=== PATIENT | female | born 1960 | race African-American/Black ===

== ENCOUNTER 2024-06-27 09:26 | Outpatient (CLI) | payer MEDICARE, MEDICAID, SELFPAY ==
--- NOTE | ~2024-06-27 | US_ITS ---
Renal-Bladder ultrasound Clinical History: Chronic kidney disease Technique: Real-time sonographic imaging of the kidneys and urinary bladder was performed. Findings: The right kidney measures 14.0 cm in length and the left kidney measures 15.1 cm. There is no hydronephrosis or renal calculus identified. Renal cortical echogenicity is within normal limits. Bilateral renal cysts are present. The urinary bladder is partially distended at the time of this exam. No intraluminal echoes are ident ified. No abnormal wall thickening is seen. Impression: Large kidneys without hydronephrosis. Bilateral renal cysts. Reviewed, dictated and finalized at location [facility] Impression: Large kidneys without hydronephrosis. Bilateral renal cysts.
== END 2024-06-27 09:27 | disposition home or self-care (01) ==
LOC: MICIMG 09:29
PROVIDERS: PCP Internal Medicine; Visit Provider Specialist
DX: N18.31 Chronic kidney disease, stage 3a (principal); N28.1 Cyst of kidney, acquired
CPT/HCPCS: 76770

== ENCOUNTER 2024-08-22 09:45 | Outpatient (CLI) | payer MEDICARE, MEDICAID, SELFPAY ==
--- NOTE | ~2024-08-22 | CT_ITS ---
CT of the Abdomen and Pelvis: Indication: Renal mass Technique: 2.5 mm axial scans were obtained through the abdomen and pelvis prior to and following in travenous administration of 100 cc of Omnipaque 350. Dose reduction technique was used on this scan b y utilizing automated exposure control and iterative reconstruction technique. The dose-length produc t (DLP) was 1378.31 mGy-cm. Findings: Scans through the lung bases are unremarkable. Bilateral benign/simple renal cysts are present. No solid, enhancing renal mass or other suspicious r enal mass identified in either side. No hydronephrosis. No renal stone seen on precontrast images. The liver, spleen, pancreas, and adrenal glands are within normal limits. Gallbladder absent. There a re atherosclerotic calcifications of the aorta. No lymphadenopathy. No bowel obstruction or bowel wall thickening. There is no evidence to suggest acute appendicitis. Images through the pelvis were performed. Urinary bladder unremarkable. No pelvic mass seen. No ascit es. Impression: Bilateral simple/benign renal cysts. No suspicious renal lesion. Reviewed, dictated and finalized at location . TIONAL TECHNICAL EDUCATION TEACHER Impression: Bilateral simple/benign renal cysts. No suspicious renal lesion.
[2024-08-22 10:15] LABS: Estimated Glomerular Filt Rate > 60
--- OUTSIDE RECORDS SUMMARY | 2024-08-22 10:31 | XMS_ITS ---
Author Organization [facility] Office Address [address] [place] [address] Care Team Providers Care Processing Analyst Name Role Phone Voss Daniel Unavailable [phone] PROBLEMS Problem Type ICD Code Onset Dates Problem Status W/U Status Risk SNOMED Code Notes Problem Renal osteodystrophy (N25.0) Active confirmed Renal osteodyst rophy (35430613) Problem Secondary hyperparathyroidism of renal origin (N25.81) Active confirmed Secondary hyperparathyroidism of renal origin (30125942) Encounters Encounter Location Date Provider Diagnosis [place] [facility] [address] [facility] [address] [place] [address] 08/12/2024 Daniel Voss Chronic kidney disea se, stage 2 (mild) N18.2 ; Essential hypertension I10 ; Cyst of kidney, acquired N28.1 ; Renal osteodystrophy N25.0 ; Secondary hyperparathyroidism of renal origin N25.81 and Proteinuria, unspecified R80.9 ASSESSMENTS Encounter Date Diagnosis Assessment Notes Treatment Notes Treatment Clinical Notes Section Notes 08/12/2024 Chronic kidney disea se, stage 2 (mild) (ICD-10 - N18.2) 08/12/2024 Essential hypertensi on (ICD-10 - I10) 08/12/2024 Cyst of kidney, acquired (ICD-10 - N28.1) 08/12/2024 Renal osteodystrophy (ICD-10 - N25.0) 08/12/2024 Secondary hyperparathyroidism of renal origin (ICD-10 - N25.81) 08/12/2024 Proteinuria, unspecified (ICD-10 - R80.9) PLAN OF TREATMENT Next Appt Details Provider Name:Daniel Voss , 09/16/2024 12:45:00 PM, [address] [facility], [address], [place], [address], Progress Notes * ANTONIO LALAOB:1960 ( 63 yo Other)Acc No.[id number]:08/12/2024 Progress Notes Patient:??BRADLY LALA Provider:??MD GATO, Iram.Pranav.C.P, F.A.S .N. :1960?Age:63 Y?Sex:Un known Date:08/12/2024 Address:[address] [place], [place] [address] [address] Subjective: * Chief Complaints: * ? * Medical History:?? Objective: Assessment: * Assessment: 1.??Chronic kidney disease, stage 2 (mild) - N18.2 (Primary)??2.??Essential hypertension - I10??3.??Cyst of kidney, acquired - N28.1??4.??Renal osteodystrophy - N25.0??5.??Secondary hyperparathyroidism of renal origin - N25.81??6.??Proteinuria, unspecified - R80.9?? Plan: * Treatment: * Billing Information: * Visit Code:?? 28262 Office Visit, Est Pt., Level 4. * Procedure Codes:?? * SCAPE CONTRACTOR Sign off status: Pending * Provider:??MD GATO, Iram.Pranav.Steven.P, F.A.S .N. Date:??08/12/2024
--- OUTSIDE RECORDS SUMMARY | 2024-08-22 10:31 | XMS_ITS ---
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 PROBLEMS Problem Type ICD Code Onset Dates Problem Status W/U Status Risk SNOMED Code Notes Problem Chronic kidney disease, stage 1 (N18.1) Active confirmed Chronic kidney disease stage 1 (572591659) Problem Type 2 diabetes mellitus without complications (E11.9) Active confirmed Type II diabetes mellitus without complication (744627935) Problem Essential hypertension (I10) Active confirmed Essential hypertension (42662202) Problem Cyst of kidney, acquired (N28.1) Active confirmed Acquired re nal cystic disease (120345081) Encounters Encounter Location Date Provider Diagnosis [facility] [address] [facility] [address] [place] [address] 06/10/2024 Daniel Voss Chronic kidney disease, stage 1 N18.1 ; Type 2 diabetes mellitus without complications E11.9 ; Essential hypertension I10 and Cyst of kidney, acquired N28.1 ASSESSMENTS Encounter Date Diagnosis Assessment Notes Treatment Notes Treatment Clinical Notes Section Notes 06/10/2024 Chronic kidney disease, stage 1 (ICD-10 - N18.1) 06/10/2024 Type 2 diabetes mellitus without complications (ICD-10 - E11.9) 06/10/2024 Essential hypertension (ICD-10 - I10) 06/10/2024 Cyst of kidney, acquired (ICD-10 - N28.1) PLAN OF TREATMENT Next Appt Details Provider Name:Daniel Voss , 09/16/2024 12:45:00 PM, [address] [facility], [facility] [address], [place], [address], Progress Notes * ANTONIO LALAOB:1960 ( 63 yo Other)Acc No.[id number]:06/10/2024 Progress Notes Patient:??BRADLY LALA Provider:??MD GATO, F.A.C.P, F.A.S .N. :1960?Age:63 Y?Sex:Un known Date:06/10/2024 Address:[address] [place], [place] [address] [address] Subjective: * Chief Complaints: * ?1. HOOK UP- ER VISIT AT [facility]- PT WAS TOLD TO MAKE A APPT WITH DOC- PLEASE GET INFO FROM TO MAKE A CHART- C.S.. * Medical History:?? Objective: Assessment: * Assessment: 1.??Chronic kidney disease, stage 1 - N18.1 (Primary)??2.??Type 2 diabetes mellitus without complications - E11.9??3.??Essential hypertension - I10??4.??Cyst of kidney, acquired - N28.1?? Plan: * Treatment: * Billing Information: * Visit Code:?? 86859 Office Visit, New Pt., Level 5. * Procedure Codes:?? * TEGIC PARTNERSHIP SPECIALIST Sign off status: Pending * Provider:??MD GATO, F.Pranav.C.P, F.A.S .N. Date:??06/10/2024
--- OUTSIDE RECORDS SUMMARY | 2024-08-22 10:31 | XMS_ITS | Data Portability ---
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 At her request under sterile conditions I injected both knee joints in the office today with 4 cc 0.5% bupivacaine and 20 mg of Kenalog each. The patient tolerated the procedures well. I will see her back as needed we can do this again in 3 months if necessary. She has had previous gel shots she states these did not work well for her so she would rather stick with the cortisone. She can take ibuprofen 800 mg t.i.d. with food I have advised her to have her kidney function checked every 6-12 months she sees her primary care doctor for care of her type 2 diabetes. She voiced understanding agrees above plan she will call for any further problems difficulties or questions. Not available 04/12/2024 09:18:18 07/12/2024 07/12/2024 The patient has moderately severe primary osteoarthritis both knee joints. At her request under sterile conditions I injected both knee joints in the office today with 4 cc 0.5% bupivacaine and 20 mg of triamcinolone each. The patient tolerated the procedures well. I will see her back as needed we can do this again in 3 months if necessary. The patient voiced understanding and agree with the above plan she will call for any further problems difficulties or questions. Not available 07/12/2024 09:32:40 Plan of Treatment Reminders Order Date Submit Date Provider Last Modified By Organization Details Last Modified Time Details Appointments Any 5 2024 08:00A POOJA Medrano Not available Not available Not available Lab None recorded. Referral None recorded. Procedures injection /aspirati on joint/bur sa (PROC) 2023 024 In-Office Order, Internal Use Only DO Not Attach Compendium DO Not Attach Compendium, Do Not Delete/merge, [id number] 04/12/2024 09:01:00 injection /aspirati on joint/bur sa (PROC) 2023 024 In-Office Order, Internal Use Only DO Not Attach Compendium DO Not Attach Compendium, Do Not Delete/merge, [id number] 07/12/2024 09:15:16 Surgeries endoscopy , nasal/sin us, w/ maxillary antrostom y & tissue removal (SURG) 2023 024 Not available 05/06/2024 11:17:35 Imaging XR, knee 2023 024 [email or web address] [email or web address], [address] [facility] [place], [address], 04/12/2024 10:35:36 Medication Orders bupivacai ne HCl 0.5 % (5 mg/mL) injection solution 2023 024 [facility] #[id number], [address], [place], [place], [id number], 07/12/2024 09:10:04 Kenalog 10 mg/mL suspensio n for injection 2023 024 [facility] #[id number], [address] [facility], [place], [place], [id number], 07/12/2024 09:10:17 cefdinir 300 mg capsule 2023 024 [id number], [address], [place], [place], [id number], 05/05/2024 15:35:54 prednison e 20 mg tablet 2023 024 [facility] #[id number], [address], [place], [place], [id number], 05/05/2024 15:36:04 bupivacai ne HCl 0.5 % (5 mg/mL) injection solution 2023 024 Not available 07/12/2024 13:22:55 triamcino lone acetonide 40 mg/mL suspensio n for injection 2023 024 Not available 07/12/2024 13:22:55 Patient TargetsNo targets recorded. Patient Instructions Encounter Date Encounter Id Patient Instructions Last Modified By Organization Details Last Modified Time 04/14/2024 [id number] ADVISED HER TO QUIT TAKING HER PREVIOUSLY PRESCRIBED BACTRIM AND BEGIN TAKING CEFDINIR PRESCRIBED. WE WILL OBTAIN A CT OF HER SINUSES. [email or web address] Not available 04/14/2024 09:37:11 05/23/2024 [id number] Continue use of saline rinses as needed. Follow-up with the office as needed. [email or web address] Not available 05/23/2024 10:32:30 Reason for Referral None Reported. Results Created Date Observation Date Name Description Value Unit Range Abnormal Flag Note LastModifiedBy Organization Detail LastModifiedTime 05/11/2005/11/2024 POTAS SIUM potassium 3.6 mmol/ L 3.5-5. 1 Not Available [facility] (Lab) [address] [place], [address], 05/11/2024 12:55:09 05/11/2005/11/2024 HEMOG LOBIN /AVERY TOCRI T hemoglobin 14.2 g/dL 12.0-1 5.6 Not Available [facility] (Lab) [address] [place], [address], 05/11/2024 13:00:54 05/11/20 24 05/11/2024 HEMOG LOBIN /AVERY TOCRI T hematocrit 45.3 % 35.7-4 5.7 Not Available [facility] (Lab) [address] [place], [address], 05/11/2024 13:00:54 05/11/20 24 05/11/2024 PLATE LET COUNT platelets 346 x10'3 /uL 150-40 0 Not Available [facility] (Lab) [address] [place], [address], 05/11/2024 13:00:58 05/11/2005/11/2024 GLUCO SE (POIN T OF CARE) glucose (point of care) 87 mg/dL 74-99 Not Available [facility] (Lab) [address] [place], [address], 05/11/2024 13:30:24 04/12/20 XR, knee No observ ation record ed. [email or web address] [email or web address] [facility] [address] [facility] [place], [address], 04/12/2024 09:17:13 04/19/20 24 04/19/2024 CT, sinus es, w/o contr ast No observ ation record ed. [facility] ([facility]) [address] [place], [address], 04/20/2024 09:46:41 04/22/20 24 04/22/2024 CT, maxil lofac ial, w/o contr ast No observ ation record ed. Not Available 2023 09:01:42 Result Notes None recorded. Problems Name Problem SNOMED Code Status Onset Date Resolution Date Notes Provider Name and Address Organization Details Recorded Time Contusion of right foot 2247648003692 9103 Active 2021 Not Available [facility] 03/01/202 3 02:50:45 Disorder of trunk 435305915 Active Not Available [facility] 3 02:50:45 Plantar fascial fibromatos is 86815142 Active Not Available [facility] 3 02:50:45 Heartburn 78909957 Active Not Available [facility] 3 02:50:45 Chronic diarrhea 041258765 Active Not Available [facility] 3 02:50:45 Gastroesop hageal reflux disease without esophagiti s 761867493 Active 2021 Not Available [facility] 3 02:50:45 Low back pain 965229252 Active Not Available [facility] 3 02:50:45 Cyst of skin 139087390 Active Not Available [facility] 3 02:50:45 Right upper quadrant pain 565850745 Active 2021 Not Available [facility] 3 02:50:46 Current tear of lateral cartilage AND/OR meniscus of knee Active Not Available [facility] 3 02:50:46 Pain in right foot 2200233821488 07 Active 2021 Not Available [facility] 3 02:50:46 Lesion of ulnar nerve 810245842 Active Not Available [facility] 3 02:50:46 Osteoarthr itis 431464475 Active Not Available [facility] 3 02:50:46 Obesity 420397643 Active Not Available [facility] 3 02:50:46 Anxiety 49980139 Active Not Available [facility] 3 02:50:46 Carpal tunnel syndrome 00567185 Active Not Available [facility] 3 02:50:46 Essential hypertensi on 48096764 Active Not Available [facility] 3 02:50:46 Bilateral osteoarthr itis of knees 3386922839517 07 Active 2022 NEREIDA Chang, [place] [facility] 3 09:00:41 Osteoarthr itis of right knee joint 2447832135832 00 Active 2022 NEREIDA Chang, [facility] 3 09:02:57 Pain of bilateral knee joints 5556470378076 04 Active 2023 NEREIDA Sue null, [facility] 4 09:14:49 Chronic sinusitis 67870946 Active 2023 Tali Marques RN null, [facility] 4 09:29:28 Chronic left maxillary sinusitis 5539676536070 9101 Active 2023 Bib Mondragon MD [address], [place], [address] , [facility] 4 16:01:52 Postoperat carrie pain 452664657 Active 2023 Bib Mondragon MD [address], [address], [place], [address] , [facility] 4 17:24:24 Problem Notes None recorded. Procedures Surgical History Date Name Laterality Status Provider Name and Address Organization Details Recorded Time 024 ENDOSCOPY, NASAL/SINUS, W/ MAXILLARY ANTROSTOMY & TISSUE REMOVAL (SURG) completed Tali Marques RN [facility] 05/20/2024 14:51:00 024 Ortho - Cortisone Injection completed Ralph Lind MD [address], [address], [place], [address], [facility] 01/11/2024 10:05:37 017 colonoscopy completed Not Available [facility] 09/24/2022 02:44:34 017 Endoscopy completed Not Available [facility] 09/24/2022 02:44:34 008 Sinus Surgery completed Tali Marques RN [facility] 04/14/2024 09:20:40 excision completed Not Available [facility] 09/24/2022 02:44:34 Hysterectomy completed Not Available [facility] 09/24/2022 02:44:34 Gastrointestinal Procedure completed Not Available [facility] 09/24/2022 02:44:34 ligation of bilateral fallopian tubes completed Not Available [facility] 09/24/2022 02:44:34 Imaging Results Imaging Date Name Status LastModified by Organiz ation Details LastModified Time 04/12/2024 XR, knee completed [email or web address] [address], [place], [address], 04/12/2024 09:17:13 04/19/2024 CT, sinuses, w/o contrast completed [facility] ([facility]) [address], [place], [address], 04/20/2024 09:46:41 04/22/2024 CT, maxillofacial , w/o contrast completed Information not available 05/05/2024 09:01:42 Procedure Notes None recorded. Medical Equipment None Reported. Allergies No known drug allergies Medications Name Sig Start Date Stop Date Status Note LastModified by Organization Details LastModified Time multivitami n tablet TK 1 T PO D 10/03 completed Not Available Not Available Not Available cyclobenzap rine 10 mg tablet TAKE 1 TABLET BY MOUTH AT BEDTIME. MAY CAUSE DROWSINES S active Not Available Not Available No t Available amoxicillin 500 mg capsule TK 1 C PO Q 8 H AFTER MEALS FOR 10 DAYS 09/13 completed Not Available Not Available Not Available hydrocodone 7.5 mg-ibuprofe n 200 mg tablet TAKE 1 TABLET BY MOUTH EVERY 6 HOURS NEEDED FOR PAIN CONTROL . MAX 5 TABLETS PER DAY active Not Available Not Available No t Available Qvar 80 mcg/actuati on Metered Aerosol oral inhaler 05/23 completed Not Available Not Available Not Available bupropion HCl SR 150 mg tablet,12 hr sustained-r elease TK 1 T PO BID active Not Available Not Available No t Available neomycin-po lymyxin-hyd rocort 3.5 mg/mL-10,00 0 unit/mL-1 % ear solution INSTILL 4 GTS INTO AFFECTED EAR TID UTD 04/05 completed Not Available Not Available Not Available diclofenac 3 % topical gel APPLY TOPICALLY TO LESIONS TWICE DAILY. SEE PACKAGE INSERTS 07/24 completed Not Available Not Available Not Available nystatin 100,000 unit/mL oral suspension SWISH AND SWALLOW 5 ML PO QID 04/05 completed Not Available Not Available Not Available atorvastati n 20 mg tablet TAKE 1 TABLET BY MOUTH EVERY DAY AT BEDTIME active Not Available Not Available No t Available nicotine 14 mg/24 hr daily transdermal patch APPLY 1 PATCH TO SKIN Q 24 H AFTER FINISHING THE 21 MG PATCHES active Not Available Not Available No t Available azithromyci n 250 mg tablet TAKE 2 TABLETS BY MOUTH FOR 1 DAY THEN TAKE 1 TABLET BY MOUTH DAILY FOR 4 DAYS 04/03 completed Not Available Not Available Not Available ibuprofen 800 mg tablet TAKE 1 TABLET BY MOUTH THREE TIMES DAILY WITH MEALS 07/12 completed Not Available Not Available Not Available fluconazole 150 mg tablet TK 1 T PO QD FOR 1 DAY UTD 05/23 completed Not Available Not Available Not Available doxepin 25 mg capsule TK 1 C PO QD HS 07/24 completed Not Available Not Available Not Available clarithromy cristian 500 mg tablet Take 1 tablet twice a day by oral route for 14 days. 01/15 completed Not Available Not Available Not Available hydrocodone 5 mg-acetamin ophen 325 mg tablet TK 1 T PO Q 4 H PRN P 04/05 completed Not Available Not Available Not Available meloxicam 15 mg tablet TK 1 T PO QD 05/23 completed Not Available Not Available Not Available naltrexone 50 mg tablet TAKE 1/2 TABLET BY MOUTH TWICE DAILY DIRECTED active Not Available Not Available No t Available lisinopril 20 mg tablet TK 1 T PO QD FOR BLOOD PRESSURE 05/23 completed Not Available Not Available Not Available famotidine 40 mg tablet 05/23 completed Not Available Not Available Not Available bupivacaine HCl 0.5 % (5 mg/mL) injection solution Take 40 mg by injection route. 2023 active Not Available Not Available Not Avai lable prednisone 20 mg tablet TAKE 1 TABLET BY MOUTH DAILY FOR 5 DAYS 05/05 completed Not Available Not Available Not Available clobetasol 0.05 % topical cream active Not Available Not Available Not Available diphenoxyla te-atropine 2.5 mg-0.025 mg tablet TK 1 T PO Q 6 H PRN 05/23 completed Not Available Not Available Not Available potassium chloride ER 10 mEq tablet,exte nded release TAKE 1 TABLET BY MOUTH EVERY DAY AFTER A MEAL active Not Available Not Available No t Available Klor-Con 20 mEq oral packet DISSOLVE 1 PACKET IN LIQUID AND DRINK BY MOUTH EVERY DAY AFTER A MEAL 10/23 completed Not Available Not Available Not Available acetaminoph en 300 mg-codeine 30 mg tablet TK 1 T PO Q 4-6 H PRN 09/13 completed Not Available Not Available Not Available amlodipine 5 mg tablet TAKE 1 TABLET BY MOUTH EVERY DAY DIRECTED active Not Available Not Available No t Available ciprofloxac in 500 mg tablet 09/13 completed Not Available Not Available Not Available sulfamethox azole 800 mg-trimetho prim 160 mg tablet TK 1 T PO Q 12 H FOR 10 DAYS active Not Available Not Available No t Available amitriptyli ne 50 mg tablet Take 1 tablet every day by oral route. 01/10 completed Not Available Not Available Not Available triamcinolo ne acetonide 0.1 % topical cream 07/05 completed Not Available Not Available Not Available amoxicillin 500 mg tablet Take 2 tablets twice a day by oral route for 14 days. active Not Available Not Available No t Available ketorolac 10 mg tablet TK 1 T PO Q 6 H PRN FOR 5 DAYS 05/23 completed Not Available Not Available Not Available meloxicam 7.5 mg tablet TK 1 T PO QD AFTER MEALS 04/05 completed Not Available Not Available Not Available oxycodone-a cetaminophe n 5 mg-325 mg tablet 04/05 completed Not Available Not Available Not Available amoxicillin 875 mg tablet TAKE 1 TABLET BY MOUTH EVERY 12 HOURS FOR 10 DAYS 04/14 completed Not Available Not Available Not Available amitriptyli ne 25 mg tablet TK 1 T PO HS 05/23 completed Not Available Not Available Not Available estradiol 1 mg tablet TAKE 1 TABLET BY MOUTH EVERY DAY 05/23 completed Not Available Not Available Not Available dicyclomine 20 mg tablet TK 1 T PO BID UTD active Not Available Not Available No t Available Kenalog 10 mg/mL suspension for injection Take 40 mg by injection route. 07/12 completed [facility]: [phone] Not Available Not Available Not Available amlodipine 10 mg tablet TK ONE T PO D active Not Available Not Available No t Available triamcinolo ne acetonide 40 mg/mL suspension for injection Take 40 mg by injection route. 2023 active Not Available Not Available Not Avai lable hydrocodone 7.5 mg-acetamin ophen 325 mg tablet Take 1 tablet every 4-6 hours by oral route. 05/20 completed Not Available Not Available Not Available cephalexin 500 mg capsule active Not Available Not Available Not Available pantoprazol e 40 mg tablet,avi yed release Take 1 tablet twice a day by oral route for 14 days. 04/16 completed Not Available Not Available Not Available triamcinolo ne acetonide 0.1 % topical ointment APPLY BID. active Not Available Not Available No t Available nicotine 21 mg/24 hr daily transdermal patch MARCELL 1 PA EXT TO THE SKIN QD UTD active Not Available Not Available No t Available Xylocaine 20 mg/mL (2 %) injection solution In office injection administe red by the provider 04/16 completed Not Available Not Available Not Available omeprazole 20 mg capsule,del ayed release TAKE 1 CAPSULE BY MOUTH DAILY WITH MEALS active Not Available Not Available No t Available Banophen 25 mg capsule TK 1 C PO Q 6 H PRN 05/23 completed Not Available Not Available Not Available diclofenac sodium 75 mg tablet,avi yed release TK 1 T PO BID WITH FOOD 05/23 completed Not Available Not Available Not Available montelukast 10 mg tablet TAKE 1 TABLET BY MOUTH EVERY DAY DIRECTED active Not Available Not Available No t Available hydroxyzine HCl 25 mg tablet 04/05 completed Not Available Not Available Not Available hydrochloro thiazide 25 mg tablet TAKE 1 TABLET BY MOUTH DAILY active Not Available Not Available No t Available ergocalcife rol (vitamin D2) 1,250 mcg (50,000 unit) capsule TAKE 1 CAPSULE BY MOUTH EVERY WEEK active Not Available Not Available No t Available ibuprofen 600 mg tablet TAKE 1 TABLET BY MOUTH THREE TIMES DAILY NEEDED 04/16 completed Not Available Not Available Not Available levofloxaci n 500 mg tablet active Not Available Not Available Not Available methylpredn isolone 4 mg tablets in a dose pack TAKE DIRECTED AFTER MEALS FOR 6 DAYS 04/03 completed Not Available Not Available Not Available albuterol sulfate HFA 90 mcg/actuati on aerosol inhaler INHALE 2 PUFFS BY MOUTH EVERY 4 HOURS NEEDED DIRECTED FOR RESCUE 01/04 completed Not Available Not Available Not Available ondansetron 4 mg disintegrat ing tablet 04/05 completed Not Available Not Available Not Available cefdinir 300 mg capsule TAKE 1 CAPSULE BY MOUTH EVERY 12 HOURS FOR 10 DAYS 05/05 completed Not Available Not Available Not Available fluoxetine 20 mg capsule TK 3 CS PO QD active Not Available Not Available No t Available fluticasone propionate 50 mcg/actuati on nasal spray,suspe nsion SHAKE WELL AND USE 1 SPRAY IN EACH NOSTRIL DAILY NEEDED active Not Available Not Available No t Available calcitriol 0.25 mcg capsule TAKE 1 CAPSULE BY MOUTH EVERY DAY active Not Available Not Available No t Available naproxen 500 mg tablet TAKE 1 TABLET BY MOUTH TWICE DAILY active Not Available Not Available No t Available amoxicillin 875 mg-potassiu m clavulanate 125 mg tablet TK 1 T PO Q 12 H FOR 7 DAYS UTD active Not Available Not Available No t Available amoxicillin 500 mg-potassiu m clavulanate 125 mg tablet 09/01 completed Not Available Not Available Not Available nicotine 7 mg/24 hr daily transdermal patch APPLY 1 PATCH TO SKIN QD UTD FOR 28 DAYS active Not Available Not Available No t Available buspirone 15 mg tablet TK 1 T PO TID active Not Available Not Available No t Available oxycodone 5 mg tablet TAKE 1 TABLET BY MOUTH EVERY 4 HOURS NEEDED FOR PAIN 04/09 completed Not Available Not Available Not Available hydroxyzine pamoate 25 mg capsule TK 1 C PO QID PRN active Not Available Not Available No t Available metformin ER 750 mg tablet,exte nded release 24 hr TAKE 1 TABLET BY MOUTH DAILY AFTER A MEAL 07/12 completed Not Available Not Available Not Available Alcohol Prep Pads APPLY 1 PAD TOPICALLY THREE TIMES DAILY DIRECTED 01/10 completed Not Available Not Available Not Available Atrovent HFA 17 mcg/actuati on aerosol inhaler INL 1 PUFF PO QID PRN 10/03 completed Not Available Not Available Not Available lidocaine (PF) 10 mg/mL (1 %) injection solution In office injection administe red by the provider 10/23 completed [facility]: [phone]- [phone] Not Available Not Available Not Available BD Ultra-Fine Short Pen Needle 31 gauge x 5/16 DIRECTED EVERY DAY active Not Available Not Available No t Available Januvia 50 mg tablet TAKE 1 TABLET BY MOUTH EVERY DAY DIRECTED active Not Available Not Available No t Available calcium 600 mg (as carbonate)- vitamin D3 10 mcg (400 unit) tablet TAKE 1 TABLET BY MOUTH TWICE DAILY 01/04 completed Not Available Not Available Not Available Symbicort 160 mcg-4.5 mcg/actuati on HFA aerosol inhaler INHALE 2 PUFFS BY MOUTH TWICE DAILY DIRECTED 04/14 completed Not Available Not Available Not Available Lantus Solostar U-100 Insulin 100 unit/mL (3 mL) subcutaneou s pen ADMINISTE R 25 UNITS UNDER THE SKIN EVERY DAY DIRECTED active Not Available Not Available No t Available diclofenac 1 % topical gel APPLY 2 GRAMS TOPICALLY TO THE AFFECTED AREA FOUR TIMES DAILY 07/18 completed Not Available Not Available Not Available Synvisc-One 48 mg/6 mL intra-artic ular syringe in office 07/12 completed Not Available Not Available Not Available Probiotic 04/16 completed Not Available Not Available Not Available ropivacaine (PF) 5 mg/mL (0.5 %) injection solution Take 8 mg by injection route. 07/12 completed [facility] [phone] Not Available Not Available Not Available OneTouch Verio test strips TEST BLOOD SUGAR TWICE DAILY DIRECTED active Not Available Not Available No t Available calcium 600 mg (as carbonate)- vitamin D3 20 mcg (800 unit) tablet TK 1 T PO BID 05/23 completed Not Available Not Available Not Available BD Insulin Syringe Ultra-Fine 1 mL 31 gauge x 5/16 USE DIRECTED ONCE DAILY 01/04 completed Not Available Not Available Not Available Pennsaid 20 mg/gram/act uation (2 %) topical soln in metered-dos e pump apply two pumps (40 MG) TO THE affected knee(s) topically TWICE DAILY 07/24 completed Not Available Not Available Not Available OneTouch Verio Flex Meter USE DIRECTED 01/04 completed Not Available Not Available Not Available Norlyda 0.35 mg tablet TK 1 T PO QD 05/23 completed Not Available Not Available Not Available Qvar RediHaler 80 mcg/actuati on HFA breath activated aerosol INL 2 PFS PO BID UTD FOR THE MAINTENAN CE 04/05 completed Not Available Not Available Not Available OneTouch Delica Plus Lancet 33 gauge USE TO TEST BLOOD SUGAR TWICE DAILY DIRECTED 01/04 completed Not Available Not Available Not Available Sutab 1.479-0.188 -0.225 gram tablet DIRECTED 01/04 completed Not Available Not Available Not Available Ozempic 0.25 mg or 0.5 mg (2 mg/3 mL) subcutaneou s pen injector INJECT 0.25 MG UNDER THE SKIN EVERY WEEK active Not Available Not Available No t Available Vitals Date Recorded Body height Body mass index (BMI) Body weight Provider Name and Address Organization Details Last Updated DateTime 04/12/2024 170.18 cm 30.5 kg/m2 08705.51 g Meenu Lam CNA [facility] [employer] [facility] 04/12/2024 08:59:26 Date Recorded Body height Body mass index (BMI) Body weight Body temperature Provider Name and Address Organization Details Last Updated DateTime 04/14/2024 170.18 cm 30 kg/m2 32439.3 g 97.8 [degF] Tali Marques RN [facility] [employer] [facility] 04/14/2024 09:21:35 Date Recorded Body height Body mass index (BMI) Body weight Body temperature Provider Name and Address Organization Details Last Updated DateTime 05/05/2024 170.18 cm 30.8 kg/m2 76574.54 g 97.7 [degF] Tali Marques RN [facility] [employer] [facility] 05/05/2024 15:49:30 Date Recorded Body height Body mass index (BMI) Body weight Provider Name and Address Organization Details Last Updated DateTime 05/23/2024 170.18 cm 31 kg/m2 27542.01 g Tali Marques RN [facility] [employer] [facility] 05/23/2024 09:53:44 Date Recorded Body height Body mass index (BMI) Body weight Provider Name and Address Organization Details Last Updated DateTime 07/12/2024 170.18 cm 29.6 kg/m2 96440.96 g Meenu Lam CNA [facility] [employer] [facility] 07/12/2024 09:09:34 Social History Question Answer Notes LastModified by Organizat ion Details LastModified Time Tobacco Smoking Status Current Every Day Smoker Not Available [facility] 09/24/2022 02:35:40 Do You Have An Advance Directive? No [id number] Information not available 09/24/2022 What Is Your Level Of Alcohol Consumption? None [id number] Information not available 09/24/2022 What Is Your Level Of Caffeine Consumption? Heavy [id number] Information not available 09/24/2022 How Much Tobacco Do You Chew? None [id number] Information not available 09/24/2022 In The 14 Days Before Symptom Onset, Have You Had Close Contact With A Laboratory-confir med COVID-19 While That Case Was Ill? No [id number] Information not available 09/24/2022 In The 14 Days Before Symptom Onset, Have You Had Close Contact With A Person Who Is Under Investigation For COVID-19 While That Person Was Ill? No [id number].[id number] Information not available 09/24/2022 What Type Of Diet Are You Following? REGULAR MIGRATION.[id number] Information not available 09/24/2022 Which Illicit Or Recreational Drugs Have You Used? None [id number].[id number] Information not available 09/24/2022 Do You Or Have You Ever Used E-cigarettes Or Vape? Never Used Electronic Cigarettes MIGRATION.[id number] 7327 Information not available 09/24/2022 What Is Your Occupation? Unemployed MIGRATION.[id number] 9490 Information not available 09/24/2022 What Was The Date Of Your Most Recent Tobacco Screening? 04/09/2022 [id number].[id number] Information not available 09/24/2022 What Is Your Relationship Status? MIGRATION.994353 3859 Information not available 09/24/2022 Do You Or Have You Ever Used Smokeless Tobacco? Never Used Smokeless Tobacco MIGRATION.088249 5376 Information not available 09/24/2022 How Much Tobacco Do You Smoke? 1 PPW Information not available 07/12/2024 Do You Use Sunscreen Routinely? No MIGRATION.[id number] Information not available 09/24/2022 How Many Years Have You Smoked Tobacco? 19 Information not available 07/12/2024 Sex: Female Functional Status Question Answer Note LastModified by Organizat ion Details LastModified Time What is your exercise level? Moderate [id number] Information not available 09/24/2022 Mental Status None recorded. Family History Relationship Description Onset Age of this Age Resolved Age Notes LastModified by Organization Details LastModified Time Sister Diabetes mellitus MIGRATION.408 [id number] Not available 09/24/2022 02:44:37 Sister Asthma MIGRATION.267 [id number] Not available 09/24/2022 02:44:37 Sister Malignant tumor of rectum MIGRATION.301 [id number] Not available 09/24/2022 02:44:37 Mother Hypertensive disorder MIGRATION.170 [id number] Not available 09/24/2022 02:44:37 Mother Hypercholest erolemia MIGRATION.504 [id number] Not available 09/24/2022 02:44:37 Brother Alcoholism MIGRATION.062 [id number] Not available 09/24/2022 02:44:37 Father Malignant tumor of colon MIGRATION.035 [id number] Not available 09/24/2022 02:44:37 Daughter Anxiety MIGRATION.232 [id number] Not available 09/24/2022 02:44:37 Daughter Depressive disorder MIGRATION.604 [id number] Not available 09/24/2022 02:44:37 Unspecified Relation Diabetes mellitus grands on Not available 07/12/2024 09:11:27 Mother Heart disease Not available 2023 09:11:34 Mother Family history of stroke Not available 2023 09:11:47 Notes:STROKE no ent Medical History Condition Response COPD Y BOWEL PROBLEMS Y DEPRESSION (INCLUDING POST ) Y OBESITY Y ARTHRITIS Y USE OF BLOOD THINNERS Y DIABETES, TYPE Y HYPERTENSION Y CANCER: SPECIFY Y Gynecological HistoryNo gynecological history recorded. Obstetrics History GPAL:G 0 P 0 0 0 0 Past Encounters Encounter ID Performer Location Encounter Start Date Encounter Closed Date Diagnosis/Indication Diagnosis SNOMED-CT Code Diagnosis ICD10 Code Diagnosis Note [id number] [facility] [address] [place] [address] 10/04/2020 00:00:00 10/04/2020 09:55:57 [id number] [facility] General [facility] [address] [facility], [facility] [address] [place] [address] 10/30/2020 00:00:00 10/30/2020 13:50:49 [id number] [facility] General Surgery [address] [place] [address] 11/27/2020 00:00:00 11/27/2020 13:56:11 [id number] [facility] [address] [address] 12/04/2020 00:00:00 12/04/2020 15:53:22 [id number] _ATHENA_M IGRATION_ DEFAULT_1 _1 , 12/26/2020 00:00:00 12/26/2020 12:48:07 [id number] [facility] [address] [address] 01/17/2021 00:00:00 01/17/2021 10:30:23 [id number] [facility] [address] [address] 04/18/2021 00:00:00 04/18/2021 14:57:07 [id number] [facility] [address] [address] 07/18/2021 00:00:00 07/18/2021 09:40:37 [id number] [facility] [address] [address] 10/17/2021 00:00:00 10/17/2021 09:29:07 [id number] [facility] [address] [address] 01/14/2022 00:00:00 01/14/2022 09:51:24 [id number] _ATHENA_M IGRATION_ DEFAULT_1 _1 , 04/09/2022 00:00:00 04/09/2022 14:28:48 [id number] [facility] [address] [address] 04/24/2022 00:00:00 04/24/2022 09:31:35 [id number] [facility] [address] [address] 07/24/2022 00:00:00 07/24/2022 09:11:05 [id number] Moses Monetmayor MD [facility] [address] [address] 10/23/2022 08:55:52 10/23/2022 09:57:48 Bilateral osteoarthritis of knees [id number] 94247 M17.0 [id number] Moses Montemayor MD [facility] [address] [address] 01/15/2023 08:53:20 01/26/2023 09:20:35 Osteoarthritis of right knee joint [id number] 35368 M17.11 [id number] POOJA Law [facility] [address] [address] 04/16/2023 08:48:17 04/16/2023 09:38:50 Bilateral osteoarthritis of knees 4313223669 18977 M17.0 [id number] POOJA Law [facility] [address] [address] 07/16/2023 14:55:40 07/16/2023 16:08:32 Bilateral osteoarthritis of knees [id number] 22494 M17.0 [id number] POOJA Law [facility] [address] [address] 10/15/2023 09:29:16 10/15/2023 09:41:34 Bilateral osteoarthritis of knees [id number] 50811 M17.0 [id number] Ralph Lind MD [facility] [address] [address] 01/11/2024 09:06:30 01/11/2024 09:53:17 Pain of bilateral knee joints 1008041464 82958 M25.252 [id number] ROSEMARY Leon [facility] [place] [address] [place] [address] 04/14/2024 09:12:51 04/14/2024 09:37:42 Chronic sinusitis [id number] J32.9 [id number] POOJA Mathur [facility] [address] [place] [address] 04/12/2024 08:49:45 04/12/2024 09:18:35 Bilateral osteoarthritis of knees 0320025417 17627 M17.0 Pain of bi lateral knee joints 5662360526 76729 M25.120 [id number] Bib Mondragon MD [facility] [place] [address] [place] [address] 05/05/2024 15:22:02 05/06/2024 11:04:20 Chronic left maxillary sinusitis [id number] J32.0 [id number] ROSEMARY Leon [facility] [place] [address] [place] [address] 05/23/2024 09:35:16 05/23/2024 10:33:00 Postoperative visit [id number] Z48.89 05/11/2024 postoperat carrie from left maxillary antrostomy . [id number] POOJA Mathur [facility] [address] [place] [address] 07/12/2024 08:55:20 07/12/2024 09:34:43 Bilateral osteoarthritis of knees [id number] 14875 M17.0 Pain of bi lateral knee joints 3311750834 95714 M25.569 Health Concerns Section Related Observation LastModified by Organization Detai ls LastModified Time None Recorded Concern Status LastModified by Organization Details LastModified Time None Recorded Advance Directives Directive N: Payers Encounter Date Sequence Insurance Name Policy Number Policy Mor[place] Covered Member ID Morataya Member ID Guarantor Name 04/12/2024 1 [facility] (MEDICARE REPLACEMENT/AD VANTAGE - PPO) [id number] Rebecca Farooq [id number] Rebecca Farooq 04/12/2024 2 [place] Rebecca Farooq [id number] Rebecca Farooq 04/14/2024 1 [facility] (MEDICARE REPLACEMENT/AD VANTAGE - PPO) [id number] Rebecca Farooq [id number] Rebecca Farooq 04/14/2024 2 [place] [facility] PUBLIC AID Rebecca Farooq [id number] Rebecca Farooq 05/05/2024 1 [facility] (MEDICARE REPLACEMENT/AD VANTAGE - PPO) [id number] Rebecca Farooq [id number] Rebceca Farooq 05/05/2024 2 [place] [facility] Rebecca Farooq [id number] Rebecca Farooq 05/23/2024 1 [facility] (MEDICARE REPLACEMENT/AD VANTAGE - PPO) [id number] Rebecca Farooq [id number] Rebecca Farooq 05/23/2024 2 [place] [facility] Rebecca Farooq [id number] Rebecca Farooq 07/12/2024 1 [facility] (MEDICARE REPLACEMENT/AD VANTAGE - PPO) [id number] Rebecca Farooq [id number] Rebecca Farooq 07/12/2024 2 [place] OR [place]IC[place] REPLACEMENT PRIMARY) Rebecca Nena Oseas [id number] Rebecca Nena Oseas Notes Date Note Type Note Provider Name and Address Organization Details Recorded Time 04/12/2024 text/html Patient returns with bilateral knee pain she has moderately severe primary osteoarthritis both knees she gets by with conservative measures she takes ibuprofen 800 mg once a day I have advised her she can take it up to 3 times a day. She states she has aching pain that lately has been keeping her awake at night states it is about an 8 on a scale of 1-10 despite conservative measures her symptoms continue shot of cortisone gave her good relief it has been 3 months since her last injection she would like to repeat these again today denies any new problems with the either knee we are getting new updated x-rays today as well. POOJA Mathur [address] [place] [address], [facility] [address], [place], [address], [facility] [employer] 04/12/2024 09:18:41 04/14/2024 text/html This patient has a past medical history significant for osteoarthritis, carpal tunnel syndrome, chronic sinusitis, HTN, GERD and anxiety. She presents with nasal congestion and sinus pressure onset March 25, 2024. She states that she is on her 2nd round of antibiotics. Her PCP recently prescribed her Bactrim on Thursday. She also reports use of Flonase in adherence to her montelukast. She does note that she had a sinus surgery in 2007 and has not had any issues until recently. She has not had any recent imaging. We will obtain a CT of her sinuses. ROSEMARY Leon [address], [place], [address], [employer] [facility] 04/14/2024 09:37:15 05/05/2024 text/html the CT scan demonstrates left chronic maxillary sinusitis there is also a right orbital floor fracture with herniation. This is nonacute Bib Mondragon MD [address], [place], [address], [employer] [facility] 05/05/2024 16:02:23 05/23/2024 text/html This patient presents to the office for a postoperative visit from a left maxillary antrostomy that was completed on 05/11/2024. she denies any complaints. She does mention that the dissolvable sponge dislodged after surgery in which Dr. Mondragon was contacted and made aware and no additional orders were provided. She reports continued use of saline rinses. She has been blowing her nose without difficulties. She reports symptom improvement. ROSEMARY Leon [address], [place], [address], [employer] [facility] 05/23/2024 10:32:34 07/12/2024 text/html Patient returns she has bilateral knee pain she states the pain is about a 9 on a scale of 1-10 she denies any trauma or injury to either knee states she has aching pain due to her primary osteoarthritis. She gets by with conservative measures she takes ibuprofen 800 mg daily she has been advised she can take this up to 3 times a day. She has aching pain that keeps her awake at night shots of cortisone gave her good relief for the last 3 months nearly recently her knees have flared up again. She denies any effusion or swelling no erythema heat or other signs of infection she is complaining of pain and aching worse with activity somewhat relieved by rest. She can not stand or walk for long periods has trouble squatting kneeling going up and down stairs. It has been 3 months since her last cortisone injection she would like to repeat those again today. A new past medical history sheet was reviewed and signed on the intake sheet of today's date drug allergies current medications family social history previous surgical history 10 point review of systems was reviewed and discussed in detail today with the patient. POOJA Mathur [address] [place] [address] Teresa, [facility] [address], [place], [address], [place] [facility] [place] [employer] [facility] 07/12/2024 09:32:59 OBGyn Episode No OBEpisode recorded.
--- OUTSIDE RECORDS SUMMARY | 2024-08-22 10:31 | XMS_ITS | CONTINUITY OF CARE DOCUMENT ---
Author Name joe nelaviktoriya Address Unknown Organization [facility] Address [address] [address] [facility] [address] [place] [address] Phone [phone] Care Team Providers Care Clinical Research Physician Name Role Phone Richard CRUZ, Darvin Unavailable [phone] MARLO CRUZ, GISEL Unavailable MARLO CRUZ, GISEL Unavailable [phone] PROBLEMS Condition Status Date Provider Notes OBESITY active Debbie Stahlschmidt THYROMEGALY active TREY LUNA HVAC TECH DIZZINESS-05/04 HOLTER SR 67-120 active ? Shailesh Colon RN SHORTNESS OF BREATH-05/02 SL EEP STUDY MILD NACHO active ? Darvin Ramos MD TOBACCO ABUSE-QUIT active ? Darvin Ramos MD HTN -05/04 ECHO EF 60 05/02 ECHO LVH EF 60 active ? Shailesh Colon RN CHEST PAIN-03/02 STRESS ECHO EKG BORDER ISCH active ? Darvin Ramos MD ENCOUNTERS Date Type Provider Location Encounter Diag nosis - In-person encounter Office Visit Darvin Ramos MD [facility] - In-person encounter Office Visit Darvin Ramos MD [facility] THYROMEGALY - In-person encounter Office Visit Darvin Ramos MD [facility] TOBACCO ABUSE-QUIT - In-person encounter Office Visit Darvin Ramos MD [facility] CHEST PAIN-03/02 STRESS ECHO EKG BORDER ISCHHTN -05/04 ECHO EF 60 05/02 ECHO LVH EF 60SHORTNESS OF BREATH-05/02 SLEEP STUDY MILD OSADIZZINESS-05/04 HOLTER SR 67-120 VITAL SIGNS Date Observation Value Provider blood pressure, diastolic 68 mm[Hg] Mirna Martinez blood pressure, systolic 115 mm[Hg] Mirna Martinez pulse rate 81 /min Mirna Martinez oxygen saturation, oximetry 99 % Mirna Martinez weight E&M 260 [lb_av] Mirna Martinez height E&M 66 [in_i] TREY ALMANZA K HVAC TECH blood pressure, diastolic 78 mm[Hg] Lucius mariam Almonte'Jerson blood pressure, systolic 116 mm[Hg] Susie lakshmi Almonte'Jerson pulse rate 88 /min Amarilys O'Jerson oxygen saturation, oximetry 98 % Amarilys O'Jerson respiratory rate E&M 16 /min Amarilys O'Jerson weight E&M 248 [lb_av] Amarilys O'Jerson blood pressure, diastolic 89 mm[Hg] Kyle Colon RN blood pressure, systolic 148 mm[Hg] Shailesh Colon RN pulse rate 66 /min Shailesh Colon RN oxygen saturation, oximetry 96 % Shailesh Colon RN respiratory rate E&M 18 /min Shailesh frazier RN weight E&M 231 [lb_av] Shailesh Colon RN blood pressure, diastolic 86 mm[Hg] Kyle Colon RN blood pressure, systolic 117 mm[Hg] Shailesh Colon RN pulse rate 82 /min Shailesh Colon RN oxygen saturation, oximetry 100 % Shailesh Colon RN respiratory rate E&M 18 /min Shailesh frazier RN weight E&M 226 [lb_av] Shailesh Colon RN ALLERGIES No Known Drug Allergies HISTORY OF MEDICATION USE Medication Status Instructions Dates Provider Indications Com ments VERAMYST 27.5 MCG/SPRAY NASAL SUSPENSION active Amarilys O'Jerson ALAVERT ALLERGY/SINUS TABLET EXTENDED RELEASE 12 HOUR active Amarilys O'Jerson CELEXA 20 MG ORAL TABLET active 1 tab by mouth daily Amarilys O'Jerson ALIGN ORAL CAPSULE active daily Shailesh saenz RN PRILOSEC 20 MG ORAL CAPSULE DELAYED RELEASE active ONE TAB. DAILY OTC Shailesh Colon RN ASACOL 400 MG TBEC completed take 3 tabs 4 times daily - Amarilys O'Jerson LOPERAMIDE A-D TABLET completed 2mg take 2 tabs three times daily as needed for diarrhea - Amarilys O'Jerson DIAZEPAM TABLET completed 5mg twice daily - Amarilys O'Jerson CYMBALTA CAPSULE DELAYED RELEASE PARTICLES completed 90mg daily - Amarilys O'Jerson FERROUS SULFATE 324 MG TBEC completed 1 tablet by mouth daily - Amarilys O'Jerson TRAZODONE HCL 150 MG ORAL TABLET completed 1/2 tablet by mouth daily - Amarilys O'Jerson LEXAPRO 20 MG ORAL TABLET completed 1 tablet by mouth daily - Shailesh Colon RN LISINOPRIL 20 MG ORAL TABLET active 1 tablet by mouth daily Paul Cedillo HYDROCHLOROTHIAZIDE 25 MG ORAL TABLET active 1 tablet by mouth daily Paul Cedillo CLONAZEPAM 1 MG ORAL TABLET completed 1 tablets by mouth twice daily - Shailesh Colon RN ESTRADIOL PATCH WEEKLY active 1 patch transdermal per week Paul Cedillo SOCIAL HISTORY Date Observation Value Provider social history reviewed E&M reviewed Darvin Ramos MD social history reviewed E&M reviewed TREY LUNA NP quit smoking, stage quit Shailesh rees RN smoking status Quit Shailesh Colon RN social history reviewed E&M reviewed Shailesh Colon RN smoking history, tot al pack/year 20 Darvin Ramos MD cigarette use 2 Darvin Frazier smoking/tobacco cess ation, patient education and counseling yes Shailesh Colon RN social history E&M Marital Statu s: Single L deon with family/friends E thnicity: Shailesh Colon RN social history reviewed E&M reviewed Shailesh Colon RN physical exercise, f requency, days per week no [employer]Log caffeine use, averag e drinks per day yes LinkLog alcohol use, average drinks per day none LinkLog number of years as a smoker 10 years or m ore LinkLog smoking status Smoker [facility] MENTAL STATUS Date Observation Value Provider assessment of judgme nt and insight E&M Alert and oriented to time, place and person. Mood and affect are normal. Darvin Ramos MD assessment of judgme nt and insight E&M Alert and oriented to time, place and person. Mood and affect are normal. TREY LUNA NP assessment of judgme nt and insight E&M Alert and oriented to time, place and person. Mood and affect are normal. Shailesh Colon RN assessment of judgme nt and insight E&M Alert and oriented to time, place and person. Mood and affect are normal. Shailesh Colon RN INSURANCE PROVIDERS Payer name Policy type / Coverage type [facility] ID [place] MEDICAID (2) Medicaid [id number] TREATMENT PLAN Date Name Performer Darvin Ramos MD :115/69 today H er updated medication list for this problem includes: Hydrochlorothiazide 25 Mg Tabs (Hydrochlorothiazide) ..... 1 tablet by mouth daily Lisinopril 20 Mg Tabs (Lisinopril) ..... 1 tablet by mouth daily Darvin Ramos MD : H er updated medication list for this problem includes: Hydrochlorothiazide 25 Mg Tabs (Hydrochlorothiazide) ..... 1 tablet by mouth daily Lisinopril 20 Mg Tabs (Lisinopril) ..... 1 tablet by mouth daily Darvin Ramos MD : H er updated medication list for this problem includes: Lisinopril 20 Mg Tabs (Lisinopril) ..... 1 tablet by mouth daily Darvin Ramos MD routine-chest pain Darvin Ramos MD routine-chest pain:i think this is atypical and no need for further testing. H er updated medication list for this problem includes: Lisinopril 20 Mg Tabs (Lisinopril) ..... 1 tablet by mouth daily BP today: 148/89 Prior BP: 117/86 (05/10/2009) S tress Echo Findings: The ECG part of the stress test is considered to be borderline for ischemia while the echo part of the stress echo does not show any wall motion abnormalities. [facility] (03/11/2007) S tress Echo Comments: In view of the changes on the baseline ECG, an Adenosine Cardiolite test may be helpful for further evaluation. [facility] (03/11/2007) E chocardiogram: Normal left ventricular systolic function. Normal left ventricular size. Mild concentric left ventricular hypertrophy. There is E to A wave reversal consistent with impaired LV relaxation . Normal E/E` 6.0. Left ventricular ejection fraction is estimated at 60%. There is trace physiologic mitral valve regurgitation. There is non-specific t hickening of the mitral valve leaflets. Normal aortic root. No significant valvular abnormalities. (05/17/2009) Darvin Ramos MD routine-chest pain: H er updated medication list for this problem includes: Hydrochlorothiazide 25 Mg Tabs (Hydrochlorothiazide) ..... 1 tablet by mouth daily Lisinopril 20 Mg Tabs (Lisinopril) ..... 1 tablet by mouth daily BP today: 148/89 P rior BP: 117/86 (05/10/2009) Darvin Ramos MD routine-chest pain: H er updated medication list for this problem includes: Hydrochlorothiazide 25 Mg Tabs (Hydrochlorothiazide) ..... 1 tablet by mouth daily Lisinopril 20 Mg Tabs (Lisinopril) ..... 1 tablet by mouth daily BP today: 148/89 Prior BP: 117/86 (05/10/2009) E chocardiogram: Normal left ventricular systolic function. Normal left ventricular size. Mild concentric left ventricular hypertrophy. There is E to A wave reversal consistent with impaired LV relaxation . Normal E/E` 6.0. Left ventricular ejection fraction is estimated at 60%. There is trace physiologic mitral valve regurgitation. There is non-specific t hickening of the mitral valve leaflets. Normal aortic root. No significant valvular abnormalities. (05/17/2009) S tress Echo Findings: The ECG part of the stress test is considered to be borderline for ischemia while the echo part of the stress echo does not show any wall motion abnormalities. [facility] (03/11/2007) S tress Echo Comments: In view of the changes on the baseline ECG, an Adenosine Cardiolite test may be helpful for further evaluation. [facility] (03/11/2007) Darvin Ramos MD routine-chest pain: T he following medications were removed from the medication list: Clonazepam 1 Mg Tabs (Clonazepam) ..... 1 tablets by mouth twice daily Her updated medication list for this problem includes: Lisinopril 20 Mg Tabs (Lisinopril) ..... 1 tablet by mouth daily Diazepam Tabs (Diazepam tabs) ..... 5mg twice daily Darvin Ramos MD routine Darvin Ramos MD routine:The Patient was reencour aged to stop smoking. Darvin Ramos MD routine: H er updated medication list for this problem includes: Hydrochlorothiazide 25 Mg Tabs (Hydrochlorothiazide) ..... 1 tablet by mouth daily Lisinopril 20 Mg Tabs (Lisinopril) ..... 1 tablet by mouth daily BP today: 117/86 Prior BP: / () E chocardiogram: LVH. EF 60%. Trace MR. Trace TR. [facility] (05/04/2007) S tress Echo Findings: The ECG part of the stress test is considered to be borderline for ischemia while the echo part of the stress echo does not show any wall motion abnormalities. [facility] (03/11/2007) S tress Echo Comments: In view of the changes on the baseline ECG, an Adenosine Cardiolite test may be helpful for further evaluation. [facility] (03/11/2007) Orders: C omplete Echo ([id number]) Darvin Ramos MD routine: H er updated medication list for this problem includes: Hydrochlorothiazide 25 Mg Tabs (Hydrochlorothiazide) ..... 1 tablet by mouth daily Lisinopril 20 Mg Tabs (Lisinopril) ..... 1 tablet by mouth daily BP today: 117/86 Darvin Ramos MD routine: H er updated medication list for this problem includes: Lisinopril 20 Mg Tabs (Lisinopril) ..... 1 tablet by mouth daily BP today: 117/86 Prior BP: / () S tress Echo Findings: The ECG part of the stress test is considered to be borderline for ischemia while the echo part of the stress echo does not show any wall motion abnormalities. [facility] (03/11/2007) S tress Echo Comments: In view of the changes on the baseline ECG, an Adenosine Cardiolite test may be helpful for further evaluation. Darvin Ramos MD Date Name Stress Test - Nuclea r Complete Echo Holter Monitor 24 Hr Complete Echo HISTORY OF PROCEDURES Procedure Date Procedure Name Provider Procedure Notes S kennaus EKG Darvin Ramos MD completed EKG Darvin Ramos MD completed
--- OUTSIDE RECORDS SUMMARY | 2024-08-22 10:32 | XMS_ITS | Patient Health Record ---
Author Organization [facility] Address [address] [place] [address] Care Team Providers Care Crm Administrator Name Role Phone Daniel Voss Unavailable [phone] REASON FOR REFERRAL No Information PROBLEMS Problem Type ICD Code Onset Dates Problem Status W/U Status Risk SNOMED Code Notes Problem Type 2 diabetes mellitus without complications (E11.9) Active confirmed Type I I diabetes mellitus without complication (125456073) Problem Chronic kidney disease, stage 1 (N18.1) Active confirmed Chronic kidney disease stage 1 (328405365) Problem Chronic kidney disease, stage 2 (mild) (N18.2) Active confirmed Chronic kidne y disease stage 2 (444950284) Problem Renal osteodystrophy (N25.0) Active confirmed Renal osteodyst rophy (59105205) Problem Secondary hyperparathyroidism of renal origin (N25.81) Active confirmed Secondary hyperparathyroidism of renal origin (07787000) Problem Cyst of kidney, acquired (N28.1) Active confirmed Acquired re nal cystic disease (152362523) Problem Essential hypertension (I10) Active confirmed Essential hypertension (58470988) Encounters Encounter Location Date Provider Diagnosis [place] [facility] [address] [facility] 15 [place] [address] 06/10/2024 Daniel Voss Chronic kidney disea se, stage 1 N18.1 ; Type 2 diabetes mellitus without complications E11.9 ; Essential hypertension I10 and Cyst of kidney, acquired N28.1 [facility] [place] [facility] [address] [place] [address] 07/01/2024 Daniel Voss Chronic kidney disea se, stage 2 (mild) N18.2 ; Type 2 diabetes mellitus without complications E11.9 ; Essential hypertension I10 and Cyst of kidney, acquired N28.1 [place] [facility] 2043 [facility] 15 [place] [address] 08/12/2024 Daniel Voss Chronic kidney disea se, stage 2 (mild) N18.2 ; Essential hypertension I10 ; Cyst of kidney, acquired N28.1 ; Renal osteodystrophy N25.0 ; Secondary hyperparathyroidism of renal origin N25.81 and Proteinuria, unspecified R80.9 ASSESSMENTS Encounter Date Diagnosis Assessment Notes Treatment Notes Treatment Clinical Notes Section Notes 06/10/2024 Type 2 diabetes mellitus without complications (ICD-10 - E11.9) 06/10/2024 Chronic kidney disea se, stage 1 (ICD-10 - N18.1) 07/01/2024 Chronic kidney disea se, stage 2 (mild) (ICD-10 - N18.2) 08/12/2024 Chronic kidney disea se, stage 2 (mild) (ICD-10 - N18.2) 08/12/2024 Essential hypertensi on (ICD-10 - I10) 08/12/2024 Cyst of kidney, acquired (ICD-10 - N28.1) 06/10/2024 Essential hypertensi on (ICD-10 - I10) 07/01/2024 Type 2 diabetes mellitus without complications (ICD-10 - E11.9) 06/10/2024 Cyst of kidney, acquired (ICD-10 - N28.1) 08/12/2024 Renal osteodystrophy (ICD-10 - N25.0) 07/01/2024 Essential hypertensi on (ICD-10 - I10) 08/12/2024 Secondary hyperparathyroidism of renal origin (ICD-10 - N25.81) 07/01/2024 Cyst of kidney, acquired (ICD-10 - N28.1) 08/12/2024 Proteinuria, unspecified (ICD-10 - R80.9) PLAN OF TREATMENT Next Appt Details Provider Name:Daniel Voss , 09/16/2024 12:45:00 PM, [address], [facility] 15, [place], [address],
[2024-08-22 11:22] LABS: Add Urine Microscopic? NO; Appearance Urine Clear (Clear); Bilirubin Urine Negative (Negative); Blood Urine Negative (Negative); Color Urine Yellow (Yellow); Glucose Urine UA Negative (Negative); Ketones Urine Negative (Negative); Leukocyte Esterase Ur Negative LEU/UL (Negative); Nitrate Urine Negative (Negative); Protein Urine Negative (Negative); Specific Grav Ur > 1.045 (1.001-1.035); Urobilinogen Urine 0.2 mg/dL (<2.0)
[2024-08-22 11:31] LABS: Alanine Aminotransferase 17 U/L (6-35); Albumin Level 4.3 g/dL (3.5-5.1); Alkaline Phosphatase 56 U/L (38-126); Anion Gap 8 mmol/L (4-12); Aspartate Amino Transferase 22 U/L (14-36); Bilirubin,Total 0.4 mg/dL (0.2-1.3); Blood Urea Nitrogen 8 mg/dL (7-17); Calcium 10.3 mg/dL (8.4-10.2); Carbon Dioxide 33 mmol/L (22-30); Chloride 100 mmol/L (98-107); Estimated Glomerular Filt Rate > 60; Glucose 85 mg/dL (65-110); Potassium 4.3 mmol/L (3.4-5.0); Sodium 141 mmol/L (137-145); Uric Acid 4.7 mg/dL (2.5-7.5)
[2024-08-22 11:42] LABS: Parathyroid Intact 55.1 pg/mL (14.5-75.2)
[2024-08-22 11:53] LABS: Hemoglobin A1C 5.9 % (<5.7)
[2024-08-22 12:01] LABS: Thyroid Stimulating Hormone 0.379 uIU/mL (0.465-4.680)
[2024-08-22 12:12] LABS: Vitamin D 25 Hydroxy 63.2 ng/mL
[2024-08-22 12:17] LABS: Creatinine Urine 29.3 mg/dL
[2024-08-22 12:35] LABS: MALB Creatinine Ratio < 20.5 mg/g (0-30); Microalbumin Urine Random < 6.0 mg/L (0-16.7)
== END 2024-08-22 09:46 | disposition home or self-care (01) ==
PROVIDERS: PCP Emergency Medicine; Visit Provider Specialist
DX: N28.89 Other specified disorders of kidney and ureter (principal); N28.1 Cyst of kidney, acquired; R94.6 Abnormal results of thyroid function studies; E21.3 Hyperparathyroidism, unspecified; E55.9 Vitamin D deficiency, unspecified; E11.65 Type 2 diabetes mellitus with hyperglycemia; E11.22 Type 2 diabetes mellitus with diabetic chronic kidney disease; I12.9 Hypertensive chronic kidney disease with stage 1 through stage 4 chronic kidney disease, or unspecified chronic kidney disease; N18.9 Chronic kidney disease, unspecified; E78.41 Elevated Lipoprotein(a); N39.0 Urinary tract infection, site not specified; R35.0 Frequency of micturition; Z79.4 Long term (current) use of insulin
CPT/HCPCS: 36415; 74178; 80053; 81003; 82043; 82306; 83036; 83970; 84443; 84550; Q9967

== ENCOUNTER 2024-10-11 09:24 | Outpatient (CLI) | payer MEDICARE, MEDICAID, SELFPAY ==
[2024-10-11 09:55] LABS: Basophils Percent Auto 0.6 % (0.2-1.2); Eosinophils Absolute Auto 0.1 K/mm3 (0-0.3); Eosinophils Percent Auto 2.2 % (0-4.4); Hemoglobin 13.3 g/dL (12.0-15.0); Immature Granulocyte Absolute 0.01 K/mm3 (0.00-0.031); Immature Granulocyte Percent A 0.2 % (0-0.5); Lymphocytes Absolute Auto 2.23 K/mm3 (0.9-3.2); Mean Corpuscular HGB Conc 30.9 g/dl (32-36); Mean Corpuscular Volume 87.2 fl (80-100); Mean Platelet Volume 10.4 fl (7.4-10.4); Monocytes Absolute Auto 0.4 K/mm3 (0.1-0.6); Monocytes Percent Auto 8.1 % (2.6-8.5); Neutrophils Absolute Auto 2.2 K/mm3 (1.3-6.7); Neutrophils Percent Auto 43.9 % (45.5-73.1); Platelet Count Result 255 k/mm3 (150-375); Red Blood Count 4.93 M/mm3 (4.2-5.4); Red Cell Distribution Width 13.2 % (11.5-14.5)
[2024-10-11 10:08] LABS: Alanine Aminotransferase 19 U/L (6-35); Albumin Level 4.4 g/dL (3.5-5.1); Alkaline Phosphatase 55 U/L (38-126); Anion Gap 8 mmol/L (4-12); Aspartate Amino Transferase 23 U/L (14-36); Bilirubin,Total 0.4 mg/dL (0.2-1.3); Blood Urea Nitrogen 13 mg/dL (7-17); Calcium 10.6 mg/dL (8.4-10.2); Carbon Dioxide 31 mmol/L (22-30); Chloride 102 mmol/L (98-107); Estimated Glomerular Filt Rate > 60; Glucose 96 mg/dL (65-110); Potassium 3.9 mmol/L (3.4-5.0); Sodium 141 mmol/L (137-145); Uric Acid 4.5 mg/dL (2.5-7.5)
[2024-10-11 10:16] LABS: Parathyroid Intact 50.2 pg/mL (14.5-75.2)
--- OUTSIDE RECORDS SUMMARY | 2024-10-11 10:17 | XMS_ITS ---
Author Organization [facility] Address [address] [facility] 61 [facility] [address] [place] [address] Care Team Providers Care Field Hand Name Role Phone Mykel Vossjit Unavailable [phone] Encounters Encounter Location Date Provider Diagnosis [place] [facility] 2043 [facility] [address] [place] [address] 09/23/2024 Daniel Voss Chronic kidney disea se, stage 2 (mild) N18.2 ; Type 2 diabetes mellitus without complications E11.9 ; Essential hypertension I10 ; Cyst of kidney, acquired N28.1 ; Renal osteodystrophy N25.0 and Secondary hyperparathyroidism of renal origin N25.81 ASSESSMENTS Encounter Date Diagnosis Assessment Notes Treatment [...] hyperparathyroidism of renal origin (ICD-10 - N25.81) PLAN OF TREATMENT Next Appt Details Provider Name:Daniel Bipin , 11/02/2024 03:15:00 PM, 2043 [facility], [address], [place], [address], Progress Notes * PATTY LALABATOOLOB:1960 ( 63 yo Other)Acc No.[id number]:09/23/2024 Progress Notes Patient: BRADLY LALA Provider: MD GATO, F.A.C.P, F.A.S.N. :1960 Age:63 Y Sex:Unknown Date:09/23/2024 Address:[address] Subjective: * Chief Complaints: * * Medical History: Objective: Assessment: * Assessment: 1. Chronic kidney disease, stage 2 (mild) - N18.2 (Primary) 2. Type 2 diabetes mellitus without complications - E11.9 3. Essential hypertension - I10 4. Cyst of kidney, acquired - N28.1 5. Renal osteodystrophy - N25.0 6. Secondary hyperparathyroidism of renal origin - N25.81 Plan: * Treatment: * Billing Information: * Visit Code: 06272 Office Visit, Est Pt., Level 4. * Procedure Codes: * Sign off status: Pending * Provider: MD GATO, F.A.C.P, F.A.S.N. Date: 09/23/2024
--- OUTSIDE RECORDS SUMMARY | 2024-10-11 10:18 | XMS_ITS ---
Author Organization [facility] Address 1400 [facility] 61 [facility] [address] [place] [address] Care Team Providers Care Screwhead Stoner And Polisher Name Role Phone Bipin Daniel Unavailable [phone] Encounters Encounter Location Date Provider Diagnosis [place] [facility] 2043 [facility] [address] [place] [address] 09/16/2024 Daniel Voss PLAN OF TREATMENT Next Appt Details Provider Name:Daniel Voss , 11/02/2024 03:15:00 PM, 2043 [facility], [address], [place], [address], Progress Notes * ANTONIO LALAOB:1960 ( 63 yo Other)Acc No.[id number]:09/16/2024 Progress Notes Patient: BRADLY LALA Provider: MD GATO, Iram.Pranav.C.P, F.A.S.N. :1960 Age:63 Y Sex:Unknown Date:09/16/2024 Address:[address] Subjective: * Chief Complaints: * * Medical History: Objective: Assessment: Plan: * Treatment: * Billing Information: * Visit Code: * Procedure Codes: * Sign off status: Pending * Provider: MD GATO, Iram.Pranav.C.P, F.A.S.N. Date: 09/16/2024
--- OUTSIDE RECORDS SUMMARY | 2024-10-11 10:18 | XMS_ITS | Patient Health Record ---
Author Organization [facility] Address [address] [place] [address] Care Team Providers Care Portal Architect Name Role Phone Daniel Voss Unavailable [phone] REASON FOR REFERRAL No Information MEDICATIONS Medication SIG (Take, Route, Frequency, Duration) Notes Start Date End Date Status Ergocalciferol 1.25 MG (80162 UT) 1 capsule Orally Once a week for 90 days 09/26/2024 12/25/2024 Active PROBLEMS Problem Type ICD Code Onset Dates Problem Status W/U Status Risk SNOMED Code Notes Problem Type 2 diabetes mellitus without complications (E11.9) Active confirmed Type I I diabetes mellitus without complication (428686593) Problem Chronic kidney disease, stage 2 (mild) (N18.2) Active confirmed Chronic kidne y disease stage 2 (511855608) Problem Renal osteodystrophy (N25.0) Active confirmed Renal osteodyst rophy (43505475) Problem Secondary hyperparathyroidism of renal origin (N25.81) Active confirmed Secondary hyperparathyroidism of renal origin (41123628) Problem Cyst of kidney, acquired (N28.1) Active confirmed Acquired re nal cystic disease (054022662) Problem Essential hypertension (I10) Active confirmed Essential hypertension (50057613) Encounters Encounter Location Date Provider Diagnosis [place] [facility] 2043 [facility] 15 [place] [address] 06/10/2024 Daneil Voss Chronic kidney disea se, stage 1 N18.1 ; Type 2 diabetes mellitus without complications E11.9 ; Essential hypertension I10 and Cyst of kidney, acquired N28.1 [facility] [place] [facility] [address] [place] [address] 07/01/2024 Daniel Voss Chronic kidney disea se, stage 2 (mild) N18.2 ; Type 2 diabetes mellitus without complications E11.9 ; Essential hypertension I10 and Cyst of kidney, acquired N28.1 [place] [facility] [address] [address] 08/12/2024 Daniel Voss Chronic kidney disea se, stage 2 (mild) N18.2 ; Essential hypertension I10 ; Cyst of kidney, acquired N28.1 ; Renal osteodystrophy N25.0 ; Secondary hyperparathyroidism of renal origin N25.81 and Proteinuria, unspecified R80.9 [place] [facility] [address] [address] 09/16/2024 Daniel Voss [place] [facility] [address] [address] 09/23/2024 Daniel Voss Chronic kidney disea se, stage 2 (mild) N18.2 ; Type 2 diabetes mellitus without complications E11.9 ; Essential hypertension I10 ; Cyst of kidney, acquired N28.1 ; Renal osteodystrophy N25.0 and Secondary hyperparathyroidism of renal origin N25.81 [facility] [address] [address] 09/26/2024 Daniel Voss ASSESSMENTS Encounter Date Diagnosis Assessment Notes Treatment Notes Treatment Clinical Notes Section Notes 06/10/2024 Type 2 diabetes mellitus without complications (ICD-10 - E11.9) 06/10/2024 Chronic kidney disea se, stage 1 (ICD-10 - N18.1) 07/01/2024 Chronic kidney disea se, stage 2 (mild) (ICD-10 - N18.2) 08/12/2024 Chronic kidney disea se, stage 2 (mild) (ICD-10 - N18.2) 08/12/2024 Essential hypertensi on (ICD-10 - I10) 09/23/2024 Chronic kidney disea se, stage 2 (mild) (ICD-10 - N18.2) 09/23/2024 Type 2 diabetes mellitus without complications (ICD-10 - E11.9) 08/12/2024 Cyst of kidney, acquired (ICD-10 - N28.1) 06/10/2024 Essential hypertensi on (ICD-10 - I10) 07/01/2024 Type 2 diabetes mellitus without complications (ICD-10 - E11.9) 06/10/2024 Cyst of kidney, acquired (ICD-10 - N28.1) 08/12/2024 Renal osteodystrophy (ICD-10 - N25.0) 07/01/2024 Essential hypertensi on (ICD-10 - I10) 09/23/2024 Essential hypertensi on (ICD-10 - I10) 09/23/2024 Cyst of kidney, acquired (ICD-10 - N28.1) 08/12/2024 Secondary hyperparathyroidism of renal origin (ICD-10 - N25.81) 07/01/2024 Cyst of kidney, acquired (ICD-10 - N28.1) 09/23/2024 Renal osteodystrophy (ICD-10 - N25.0) 08/12/2024 Proteinuria, unspecified (ICD-10 - R80.9) 09/23/2024 Secondary hyperparathyroidism of renal origin (ICD-10 - N25.81) PLAN OF TREATMENT Next Appt Details Provider Name:Daniel Voss , 11/02/2024 03:15:00 PM, 2043 [facility], [facility] [[email or web address]] [address], [place], [address],
--- OUTSIDE RECORDS SUMMARY | 2024-10-11 10:18 | XMS_ITS | Data Portability ---
Author Organization [place] - [facility], Main Office Address [address] [place] [address] Care Team Providers Care Tester Rocket Engine Name Role Phone CIPRIANO GREENWOOD Primary Care Provider [phone] CIPRIANO GREENWOOD Referring Provider Assessment Encounter Date Assessment Date Assessment LastModified by Organization Details LastModified Time 07/12/2024 07/12/2024 The patient has moderately severe [...] difficulties or questions. Not available 07/12/2024 09:32:40 10/11/2024 10/11/2024 The patient has moderately severe primary osteoarthritis both knees as described. Under sterile conditions I injected both knee joints in the office today with 4 cc of 0.5% bupivacaine and 20 mg of Kenalog each. The patient tolerated both injections well. I will see her back as needed we can do this again in 3 months if necessary she will continue with current conservative measures and call for any further problems difficulties or questions she voiced understanding and agreed with the above plan. Not available 10/11/2024 09:12:53 Plan of Treatment Reminders Order Date Submit Date Provider Last Modified By Organization Details Last Modified Time Details Appointments Any 5 2024 08:00A POOJA Medrano Not available Not available Not available Any 5 2024 08:00A POOJA Medrano Not available Not available Not available Lab None recorded. Referral None recorded. Procedures injection /aspirati on joint/bur sa (PROC) 2024 025 [email or web address] In-Office Order, Internal Use Only DO Not Attach Compendium DO Not Attach Compendium, Do Not Delete/merge, [id number] 10/11/2024 09:02:16 injection /aspirati on joint/bur sa (PROC) 2023 024 In-Office Order, Internal Use Only DO Not Attach Compendium DO Not Attach Compendium, Do Not Delete/merge, [id number] 07/12/2024 09:15:16 Surgeries endoscopy , nasal/sin us, w/ maxillary antrostom y & tissue removal (SURG) 2023 024 Not available 05/06/2024 11:17:35 Imaging None recorded. Medication Orders bupivacai ne HCl 0.5 % (5 mg/mL) injection solution 2024 025 [email or web address] [id number], [address], [place], [id number], 10/11/2024 09:55:34 Kenalog 10 mg/mL suspensio n for injection 2024 025 [email or web address] [id number], [address] [facility] [place], [id number], 10/11/2024 09:55:34 bupivacai ne HCl 0.5 % (5 mg/mL) injection solution 2023 024 Not available 09/14/2024 09:24:04 triamcino lone acetonide 40 mg/mL suspensio n for injection 2023 024 [email or web address] Not available 09/15/2024 12:42:06 Patient TargetsNo targets recorded. Patient Instructions Encounter Date Encounter Id Patient Instructions Last Modified By Organization Details Last Modified Time 05/23/2024 [id number] Continue use of saline rinses as needed. Follow-up with the office as needed. [email or web address] Not available 05/23/2024 10:32:30 09/15/2024 [id number] the patient is placed on cefdinir [email or web address] Not available 09/15/2024 13:07:30 Reason for Referral None Reported. Results Created Date Observation Date Name Description Value Unit Range Abnormal Flag Note LastModifiedBy Organization Detail LastModifiedTime 05/11/2005/11/2024 POTAS SIUM potassium 3.6 mmol/ L 3.5-5. 1 Not Available [facility] (Lab) [address] [place], [address], 05/11/2024 12:55:09 05/11/2005/11/2024 HEMOG LOBIN /AVERY TOCRI T hemoglobin 14.2 g/dL 12.0-1 5.6 Not Available [facility] (Lab) [address] [place], [address], 05/11/2024 13:00:54 05/11/2005/11/2024 HEMOG LOBIN /AVERY TOCRI T hematocrit 45.3 % 35.7-4 5.7 Not Available [facility] (Lab) [address] [place], [address], 05/11/2024 13:00:54 05/11/20 24 05/11/2024 PLATE LET COUNT platelets 346 x10'3 /uL 150-40 0 Not Available [facility] (Lab) [address] [place], [address], 05/11/2024 13:00:58 05/11/2005/11/2024 GLUCO SE (POIN T OF CARE) glucose (point of care) 87 mg/dL 74-99 Not Available [facility] (Lab) [address] [place], [address], 05/11/2024 13:30:24 04/12/20 24 XR, knee No observ ation record ed. [email or web address] [facility] [address], [place], [address], 04/12/2024 09:17:13 04/19/20 24 04/19/2024 CT, sinus es, w/o contr ast No observ ation record ed. [facility] ([facility] Call Scheduling) [address], [place], [address], 04/20/2024 09:46:41 04/22/20 24 04/22/2024 CT, maxil lofac ial, w/o contr ast No observ ation record ed. Not Available 2023 09:01:42 09/15/19 25 08/29/2024 CT, head, w/o contr ast No observ ation record ed. [email or web address] Not Available 09/15 12:52:22 09/15/19 25 08/29/2024 CT, maxil lofac ial, w/o contr ast No observ ation record ed. [email or web address] Not Available 09/15 12:52:55 Result Notes None recorded. Problems Name Problem SNOMED Code Status Onset Date Resolution Date Notes Provider Name and Address Organization Details Recorded Time Contusion of right foot 1647166812169 9103 Active 2021 Not Available [facility] 3 02:50:45 Disorder of trunk 683716397 Active Not Available [facility] 3 02:50:45 Plantar fascial fibromatos is 29578343 Active Not Available [facility] 3 02:50:45 Heartburn 31226399 Active Not Available [facility] 3 02:50:45 Chronic diarrhea 291077677 Active Not Available [facility] 3 02:50:45 Gastroesop hageal reflux disease without esophagiti s 554074157 Active 2021 Not Available [facility] 3 02:50:45 Low back pain 610482769 Active Not Available [facility] 3 02:50:45 Cyst of skin 356814094 Active Not Available [facility] 3 02:50:45 Right upper quadrant pain 687101625 Active 2021 Not Available [facility] 3 02:50:46 Current tear of lateral cartilage AND/OR meniscus of knee Active Not Available [facility] 3 02:50:46 Pain in right foot 2871406668813 07 Active 2021 Not Available [facility] 3 02:50:46 Lesion of ulnar nerve 584839622 Active Not Available [facility] 3 02:50:46 Osteoarthr itis 654671597 Active Not Available [facility] 3 02:50:46 Obesity 729649138 Active Not Available [facility] 3 02:50:46 Anxiety 49795540 Active Not Available [facility] 3 02:50:46 Carpal tunnel syndrome 17889775 Active Not Available [facility] 3 02:50:46 Essential hypertensi on 00522979 Active Not Available [facility] 3 02:50:46 Bilateral osteoarthr itis of knees 3849443972746 07 Active 2022 NEREIDA Chang, [place] [facility] 3 09:00:41 Osteoarthr itis of right knee joint 8222110540155 00 Active 2022 NEREIDA Chang null, [place] [facility] 3 09:02:57 Pain of bilateral knee joints 5406361762429 04 Active 2023 NEREIDA Sue null, [place] [facility] 4 09:14:49 Chronic sinusitis 43600514 Active 2023 Tali Marques RN null, [place] [facility] 4 09:29:28 Chronic left maxillary sinusitis 6696060305760 9101 Active 2023 Bib Mondragon MD [address] [place] [address], [address] , [place] [facility] 4 16:01:52 Postoperat carrie pain 731631079 Active 2023 Bib Mondragon MD [address], [place], [address] , [facility] [email or web address] [facility] 4 17:24:24 Left mastoiditi s 6759796067751 109 Active 2024 Bib Mondragon MD [address], [place], [address] , [facility] [employer] 5 13:07:13 Notes:Some problems listed i n Document: #[id number] could not be added to this patient's chart. Please review this document and add these problems to the patient's chart manually as needed. Problem Notes None recorded. Procedures Surgical History Date Name Laterality Status Provider Name and Address Organization Details Recorded Time 024 ENDOSCOPY, NASAL/SINUS, W/ MAXILLARY ANTROSTOMY & TISSUE REMOVAL (SURG) completed Tali Marques RN [facility] [employer] [facility] 05/20/2024 14:51:00 024 Ortho - Cortisone Injection completed Ralph Lind MD [address], [place], [address], [employer] [facility] 01/11/2024 10:05:37 017 colonoscopy completed Not Available [facility] 09/24/2022 02:44:34 017 Endoscopy completed Not Available [facility] 09/24/2022 02:44:34 008 Sinus Surgery completed Tali Marques RN [facility] [employer] 04/14/2024 09:20:40 excision completed Not Available [facility] 09/24/2022 02:44:34 Hysterectomy completed Not Available [facility] 09/24/2022 02:44:34 Gastrointestinal Procedure completed Not Available [facility] 09/24/2022 02:44:34 ligation of bilateral fallopian tubes completed Not Available [facility] 09/24/2022 02:44:34 Imaging Results Imaging Date Name Status LastModified by Organiz ation Details LastModified Time 04/12/2024 XR, knee completed [email or web address] [facility] [address] [facility], [place], [address], 04/12/2024 09:17:13 04/19/2024 CT, sinuses, w/o contrast completed [facility] ([facility] Call Scheduling) [address], [place], [address], 04/20/2024 09:46:41 04/22/2024 CT, maxillofacial , w/o contrast completed Information not available 05/05/2024 09:01:42 08/29/2024 CT, head, w/o contrast completed [email or web address] Information not available 09/15/2024 12:52:22 08/29/2024 CT, maxillofacial , w/o contrast completed [email or web address] Information not available 09/15/2024 12:52:55 Procedure Notes None recorded. Medical Equipment None [...] 1/2 TABLET BY MOUTH TWICE DAILY DIRECTED 09/15 completed Not Available Not Available Not Available lisinopril 20 mg tablet TK 1 T PO QD FOR BLOOD PRESSURE 05/23 completed Not Available Not Available Not Available famotidine 40 mg tablet 05/23 completed Not Available Not Available Not Available bupivacaine HCl 0.5 % (5 mg/mL) injection solution Take 40 mg by injection route. 2024 active Not Available Not Available Not Avai [...] Not Available Not Available No t Available tramadol 50 mg tablet TAKE 1 TABLET BY MOUTH THREE TIMES DAILY NEEDED active Not Available Not Available [...] injection Take 40 mg by injection route. 2024 active ND: 0003- 0494- 20 Not Available Not Available Not Available amlodipine 10 mg tablet TK ONE T PO D active Not Available Not Available No t Available triamcinolo ne acetonide 40 mg/mL suspension for injection Take 40 mg by injection route. 09/15 completed Not Available Not Available Not Available hydrocodone 7.5 mg-acetamin ophen 325 mg tablet [...] Not Available Not Available No t Available losartan 25 mg tablet TAKE 1 TABLET BY MOUTH EVERY DAY active Not Available [...] 1 TABLET BY MOUTH EVERY DAY DIRECTED 09/15 completed Not Available Not Available Not Available hydroxyzine HCl 25 mg tablet 04/05 [...] Not Available cefdinir 300 mg capsule TAKE ONE CAPSULE BY MOUTH TWICE DAILY active Not Available Not Available No t Available fluoxetine 20 mg capsule TK 3 CS PO QD active Not Available Not Available No t Available fluticasone propionate 50 mcg/actuati on nasal spray,suspe nsion SHAKE LIQUID AND USE 2 SPRAYS IN EACH NOSTRIL DAILY active Not Available Not Available No t Available calcitriol 0.25 mcg capsule TAKE 1 CAPSULE BY MOUTH EVERY DAY active Not Available Not Available No t Available naproxen 500 mg tablet TAKE 1 TABLET BY MOUTH TWICE DAILY 09/15 completed Not Available Not Available Not Available amoxicillin 875 mg-potassiu m clavulanate 125 [...] administe red by the provider 10/23 completed [facility]: [phone]- [phone] Not Available Not Available Not Available [...] completed Not Available Not Available Not Available [facility] 60 mg tablet Take 1 tablet twice a day by oral route. active Not Available Not Available No t Available ropivacaine (PF) 5 mg/mL (0.5 %) injection solution Take 8 mg by injection route. 07/12 completed [facility] [phone] Not Available Not Available Not [...] 2 PFS PO BID UTD FOR THE WILTON CE 04/05 completed Not Available Not Available Not Available OneTouch Delica Plus Lancet 33 gauge USE TO TEST BLOOD SUGAR TWICE DAILY DIRECTED 01/04 completed Not Available Not Available Not Available Sutab 1.479-0.188 -0.225 gram tablet DIRECTED 01/04 completed Not Available Not Available Not Available Ozempic 0.25 mg or 0.5 mg (2 mg/3 mL) subcutaneou s pen injector INJECT 0.5MG SUBCUTANE OUS EVERY WEEK AFTER A MEAL active Not Available Not Available No t Available Vitals Date Recorded Body height Body mass index (BMI) Body weight Body temperature Provider Name and Address Organization Details Last Updated DateTime 05/05/2024 170.18 cm 30.8 kg/m2 74686.54 g 97.7 [degF] Tali Marques RN [facility] [employer] 05/05/2024 15:49:30 Date Recorded Body height Body mass index (BMI) Body weight Provider Name and Address Organization Details Last Updated DateTime 05/23/2024 170.18 cm 31 kg/m2 43941.01 g Tali Marques RN [facility] [employer] 05/23/2024 09:53:44 Date Recorded Body height Body mass index (BMI) Body weight Provider Name and Address Organization Details Last Updated DateTime 07/12/2024 170.18 cm 29.6 kg/m2 04701.96 g Meenu Lam CNA PA [email or web address] [facility] 07/12/2024 09:09:34 Date Recorded Body height Body mass index (BMI) Body weight Body temperature Provider Name and Address Organization Details Last Updated DateTime 09/15/2024 170.18 cm 30.3 kg/m2 16287.76 g 97.3 [degF] Zarina Chapa [facility] [employer] 09/15/2024 12:40:46 Date Recorded Body height Body mass index (BMI) Body weight Provider Name and Address Organization Details Last Updated DateTime 10/11/2024 170.18 cm 29.9 kg/m2 22772.14 g Mis Miner R[place] - [facility] [employer] [facility] 10/11/2024 09:00:45 Social History Question Answer Notes LastModified by Organizat ion Details LastModified Time Tobacco Smoking Status Current Every Day Smoker Not Available [email or web address] 09/24/2022 02:35:40 Do You Have An Advance Directive? No [id number] Information not available 09/24/2022 What Is Your Level Of Alcohol Consumption? None MIGRATION.111885 1435 Information not available 09/24/2022 What Is Your Level Of Caffeine Consumption? Heavy MIGRATION.247615 5410 Information not available 09/24/2022 How Much Tobacco Do You Chew? None MIGRATION.909236 1823 Information not available 09/24/2022 In The 14 Days Before Symptom Onset, Have You Had Close Contact With A Laboratory-confir med COVID-19 While That Case Was Ill? No MIGRATION.129215 2929 Information not available 09/24/2022 In The 14 Days Before Symptom Onset, Have You Had Close Contact With A Person Who Is Under Investigation For COVID-19 While That Person Was Ill? No MIGRATION.337677 4825 Information not available 09/24/2022 What Type Of Diet Are You Following? REGULAR MIGRATION.188767 9178 Information not available 09/24/2022 Which Illicit Or Recreational Drugs Have You Used? None MIGRATION.789739 8547 Information not available 09/24/2022 Do You Or Have You Ever Used E-cigarettes Or Vape? Never Used Electronic Cigarettes MIGRATION.562435 3222 Information not available 09/24/2022 What Is Your Occupation? Unemployed MIGRATION.821871 0465 Information not available 09/24/2022 What Was The Date Of Your Most Recent Tobacco Screening? 09/15/2024 [email or web address] Information not available 09/15/2024 What Is Your Relationship Status? MIGRATION.218987 9706 Information not available 09/24/2022 Do You Or Have You Ever Used Smokeless Tobacco? Never Used Smokeless Tobacco MIGRATION.584761 1066 Information not available 09/24/2022 How Much Tobacco Do You Smoke? 1 PPW Information not available 07/12/2024 Do You Use Sunscreen Routinely? No MIGRATION.298119 5997 Information not available 09/24/2022 How Many Years Have You Smoked Tobacco? 19 Information not available 07/12/2024 Sex: Female Functional Status Question Answer Note LastModified by Organizat ion Details LastModified Time What is your exercise level? Moderate MIGRATION.[id number] 6 Information not available 09/24/2022 Mental Status None recorded. Family History Relationship Description Onset Age of this Age Resolved Age Notes LastModified by Organization Details LastModified Time Sister Diabetes mellitus MIGRATION.920 [id number] Not available 09/24/2022 02:44:37 Sister Asthma MIGRATION.626 [id number] Not available 09/24/2022 02:44:37 Sister Malignant tumor of rectum MIGRATION.861 [id number] Not available 09/24/2022 02:44:37 Mother Hypertensive disorder MIGRATION.481 3077409 Not available 09/24/2022 02:44:37 Mother Hypercholest erolemia MIGRATION.867 8272528 Not available 09/24/2022 02:44:37 Brother Alcoholism MIGRATION.184 2972240 Not available 09/24/2022 02:44:37 Father Malignant tumor of colon MIGRATION.872 6076743 Not available 09/24/2022 02:44:37 Daughter Anxiety MIGRATION.152 4427371 Not available 09/24/2022 02:44:37 Daughter Depressive disorder MIGRATION.735 4719897 Not available 09/24/2022 02:44:37 Unspecified Relation Diabetes mellitus grands on Not available 07/12/2024 09:11:27 Mother Heart disease Not available 2023 09:11:34 Mother Family history of stroke Not available 2023 09:11:47 Notes:STROKE no ent Medical History Condition Response CANCER: SPECIFY Y ARTHRITIS Y OBESITY Y USE OF BLOOD THINNERS Y DIABETES, TYPE Y BOWEL PROBLEMS Y DEPRESSION (INCLUDING POST ) Y COPD Y HYPERTENSION Y Gynecological HistoryNo gynecological history recorded. Obstetrics History GPAL:G 0 P 0 0 0 0 Past Encounters Encounter ID Performer Location Encounter Start Date Encounter Closed Date Diagnosis/Indication Diagnosis SNOMED-CT Code Diagnosis ICD10 Code Diagnosis Note [id number] [facility] [address] [place] [address] 10/04/2020 00:00:00 10/04/2020 09:55:57 [id number] [facility] [address] [address] 10/30/2020 00:00:00 10/30/2020 13:50:49 [id number] [facility] [address] [address] 11/27/2020 00:00:00 11/27/2020 13:56:11 [id number] [facility] [address] [address] 12/04/2020 00:00:00 12/04/2020 15:53:22 [id number] _ATHENA_M IGRATION_ DEFAULT_1 _1 , 12/26/2020 00:00:00 12/26/2020 12:48:07 [id number] [facility] [address] [address] 01/17/2021 00:00:00 01/17/2021 10:30:23 [id number] [facility] [address] [address] 04/18/2021 00:00:00 04/18/2021 14:57:07 [id number] [facility] [address] [address] 07/18/2021 00:00:00 07/18/2021 09:40:37 [id number] [facility] [address] [address] 10/17/2021 00:00:00 10/17/2021 09:29:07 [id number] [facility] [address] [address] 01/14/2022 00:00:00 01/14/2022 09:51:24 [id number] _ATHENA_M IGRATION_ DEFAULT_1 _1 , 04/09/2022 00:00:00 04/09/2022 14:28:48 [id number] [facility] [address] [address] 04/24/2022 00:00:00 04/24/2022 09:31:35 [id number] [facility] [address] [address] 07/24/2022 00:00:00 07/24/2022 09:11:05 [id number] Moses Montemayor MD [facility] [address] [address] 10/23/2022 08:55:52 10/23/2022 09:57:48 Bilateral osteoarthritis of knees 5709010405 71889 M17.0 [id number] Moses Montemayor MD [facility] [address] [address] 01/15/2023 08:53:20 01/26/2023 09:20:35 Osteoarthritis of right knee joint 5633249411 49594 M17.11 [id number] POOJA Law [facility] [address] [address] 04/16/2023 08:48:17 04/16/2023 09:38:50 Bilateral osteoarthritis of knees 6207586618 56588 M17.0 [id number] POOJA Law [facility] [address] [address] 07/16/2023 14:55:40 07/16/2023 16:08:32 Bilateral osteoarthritis of knees 0887957394 33897 M17.0 [id number] POOJA Law [facility] [address] [address] 10/15/2023 09:29:16 10/15/2023 09:41:34 Bilateral osteoarthritis of knees 5390244904 28218 M17.0 [id number] Ralph Lind MD [facility] [address] [address] 01/11/2024 09:06:30 01/11/2024 09:53:17 Pain of bilateral knee joints 3525249460 93488 M25.400 [id number] ROSEMARY Leon [facility] [place] [address] [place] [address] 04/14/2024 09:12:51 04/14/2024 09:37:42 Chronic sinusitis 33023349 J32.9 [id number] POOJA Mathur [facility] [address] [address] 04/12/2024 08:49:45 04/12/2024 09:18:35 Bilateral osteoarthritis of knees 0612033555 53084 M17.0 Pain of bi lateral knee joints 4888407597 43951 M25.187 [id number] Bib Mondragon MD [facility] [place] [address] [place] [address] 05/05/2024 15:22:02 05/06/2024 11:04:20 Chronic left maxillary sinusitis 0153252923 0000816 J32.0 [id number] ROSEMARY Leon [facility] [place] [address] [place] [address] 05/23/2024 09:35:16 05/23/2024 10:33:00 Postoperative visit 996511977 Z48.89 05/11/2024 postoperat carrie from left maxillary antrostomy . [id number] [facility] [address] [address] 07/12/2024 08:55:20 07/12/2024 09:34:43 Bilateral osteoarthritis of knees 5086318252 11104 M17.0 Pain of bi lateral knee joints 0729349315 54876 M25.984 [id number] Bib Mondragon MD [facility] [place] [address] [place] [address] 09/15/2024 12:06:57 09/16/2024 16:09:45 Left mastoiditis 1549660765 947528 H75.02 [id number] POOJA Mathur [facility] [address] [address] 10/11/2024 08:51:51 10/11/2024 09:14:15 Bilateral osteoarthritis of knees 8648183350 23344 M17.0 Pain of bi lateral knee joints 4692291715 85610 M25.569 Health Concerns Section Related Observation LastModified by Organization Detai ls LastModified Time None Recorded Concern Status LastModified by Organization Details LastModified Time None Recorded Advance Directives Directive N: Payers Encounter Date Sequence Insurance Name Policy Number Policy Morataya Covered Member ID Morataya Member ID Guarantor Name 05/05/2024 1 [facility] (MEDICARE REPLACEMENT/AD VANTAGE - PPO) [id number] Rebecca R [place] [id number] Rebecca R [place] 05/05/2024 2 [place] [facility] OF PUBLIC AID Rebecca R [place] [id number] Rebecca R [place] 05/23/2024 1 [facility] (MEDICARE REPLACEMENT/AD VANTAGE - PPO) [id number] Rebecca R [place] [id number] Rebecca R [place] 05/23/2024 2 [place] [facility] OF PUBLIC AID Rebecca R [place] [id number] Rebecca R [place] 07/12/2024 1 [facility] (MEDICARE REPLACEMENT/AD VANTAGE - PPO) [id number] Rebecca R [place] [id number] Rebecca R [place] 07/12/2024 2 [place]IC[place] REPLACEMENT PRIMARY) Rebecca R [place] [id number] Rebecca R [place] 09/15/2024 1 [facility] (MEDICARE REPLACEMENT/AD VANTAGE - PPO) [id number] Rebecca R [place] [id number] Rebecca R [place] 09/15/2024 2 [place]IC[place] REPLACEMENT [place]IMARY) Rebecca R [place] [id number] Rebecca R [place] 10/11/2024 1 [facility] (MEDICARE REPLACEMENT/AD VANTAGE - PPO) [id number] Rebecca R [place] [id number] Rebecca R [place] 10/11/2024 2 [place]IC[place] REPLACEMENT PRIMARY) Rebecca R [place] [id number] Rebecca R [place] Notes Date Note Type Note Provider Name and Address Organization Details Recorded Time 05/05/2024 text/html the CT scan demonstrates left chronic maxillary sinusitis there is also a right orbital floor fracture with herniation. This is nonacute Bib Mondragon MD [address], [place], [address], [employer] [facility] [employer] [facility] 05/05/2024 16:02:23 05/23/2024 text/html This patient pre sents to the office for a postoperative visit [...] reports symptom improvement. ROSEMARY Leon [address], [place], [address], [employer] [facility] [employer] 05/23/2024 10:32:34 07/12/2024 text/html Patient returns she [...] detail today with the patient. POOJA Mathur [address], [address] [address], [place], [address], [employer] [facility] [employer] 07/12/2024 09:32:59 09/15/2024 text/html the patient repo rts sneezing causing occipital pain. A CT scan revealed left mastoid iritis and an old orbital floor fracture. Otherwise the paranasal sinuses were normal Bib Mondragon MD [address], [facility] [address], [place], [address], [employer] [facility] 09/15/2024 13:07:52 10/11/2024 text/html Patient returns with bilateral knee pain she would like cortisone injections both knees. She has moderately severe primary osteoarthritis both knees tricompartmental in nature. Shots of cortisone gave her good relief she comes in every 3 months. Currently she is on ibuprofen takes his daily this helps somewhat as well. Lately her knees have really been bothering her quite a bit about an 8 on a scale of 1-10 denies any new problems no new trauma or injury just a recurrence of her previous knee pain after the last cortisone injections have worn off. POOJA Mathur [address], [address], [place], [address], [employer] [facility] 10/11/2024 09:13:25 OBGyn Episode No OBEpisode recorded.
--- OUTSIDE RECORDS SUMMARY | 2024-10-11 10:18 | XMS_ITS ---
Author Organization [facility] est[facility] Office Address [address] [facility] 61 [facility] [address] [place] [address] Care Team Providers Care Human Intelligence Name Role Phone Bipin Daniel Unavailable [phone] MEDICATIONS Medication SIG (Take, Route, Frequency, Duration) Notes Start Date End Date Status Ergocalciferol 1.25 MG (10282 UT) 1 capsule Orally Once a week for 90 days 09/26/2024 12/25/2024 Active Encounters Encounter Location Date Provider Diagnosis [place] [facility] [address] [facility] [address] [place] [address] 09/26/2024 Daniel Voss PLAN OF TREATMENT Medication Medication Name Sig Start Date Stop Date Notes Ergocalciferol 1.25 MG (5000 0 UT) 1 capsule Orally Once a week for 90 days 09/26/2024 12/25/2024 Next Appt Details Provider Name:Daniel Voss , 11/02/2024 03:15:00 PM, [address]43 [facility], [facility] [address], [place], [address], Progress Notes * ANTONIO LALAOB:1960 ( 63 yo Other)Acc No.[id number]:09/26/2024 Patient: BRADLY LALA :1960 Age:63 Y Sex:Unknown Address:[address], [place] [address] * Refills Start Ergocalciferol Capsule, 1.25 MG (73207 UT), Orally, 13, 1 capsule, Once a week, 90 days * * Date:
--- OUTSIDE RECORDS SUMMARY | 2024-10-11 10:18 | XMS_ITS | CONTINUITY OF CARE DOCUMENT ---
Author Name joe diaz Address Unknown Organization [facility] Address [address] [facility] [address] [place] [address] Phone [phone] Care Team Providers Care Education Officer Name Role Phone Richard CRUZ, Darvin Unavailable [phone] MARLO CRUZ, GISEL Unavailable MARLO CRUZ, GISEL Unavailable [phone] PROBLEMS Condition Status Date Provider Notes OBESITY active Debbie Stahlschmidt THYROMEGALY active TREY LUNA CONFIGURATION ANALYST DIZZINESS-05/04 HOLTER SR 67-120 active ? Shailesh [...] In-person encounter Office Visit Darvin Ramos MD [place] [facility] - In-person encounter Office Visit Darvin Ramos MD [place] [facility] THYROMEGALY - In-person encounter Office Visit Darvin Ramos MD [place] [facility] TOBACCO ABUSE-QUIT - In-person encounter Office Visit Darvin Ramos MD [place] [facility] CHEST PAIN-03/02 STRESS ECHO EKG BORDER [...] height E&M 66 [in_i] TREY ALMANZA K CONFIGURATION ANALYST blood pressure, diastolic 78 mm[Hg] Lucius mariam [...] or m ore LinkLog smoking status Smoker [facility] MENTAL STATUS Date Observation Value Provider assessment [...] Payer name Policy type / Coverage type [facility] ID [place] MEDICAID (2) Medicaid [id number] TREATMENT PLAN Date Name Performer Darvin Ramos [...] does not show any wall motion abnormalities. [facility] (03/11/2007) S tress Echo Comments: In view of the changes on the baseline ECG, an Adenosine Cardiolite test may be helpful for further evaluation. [facility] (03/11/2007) E chocardiogram: Normal left ventricular systolic [...] does not show any wall motion abnormalities. [facility] (03/11/2007) S tress Echo Comments: In view of the changes on the baseline ECG, an Adenosine Cardiolite test may be helpful for further evaluation. [facility] (03/11/2007) Darvin Ramos MD routine-chest pain: T [...] LVH. EF 60%. Trace MR. Trace TR. [facility] (05/04/2007) S tress Echo Findings: The ECG part of the stress test is considered to be borderline for ischemia while the echo part of the stress echo does not show any wall motion abnormalities. [facility] (03/11/2007) S tress Echo Comments: In view of the changes on the baseline ECG, an Adenosine Cardiolite test may be helpful for further evaluation. [facility] (03/11/2007) Orders: C omplete Echo ([id number]) Darvin Ramos MD routine: H er updated [...] does not show any wall motion abnormalities. [facility] (03/11/2007) S tress Echo Comments: In view [...]
[2024-10-11 10:32] LABS: Creatinine Urine 83.7 mg/dL
[2024-10-11 10:35] LABS: MALB Creatinine Ratio 7.6 mg/g (0-30); Microalbumin Urine Random 6.4 mg/L (0-16.7)
[2024-10-11 10:37] LABS: Thyroid Stimulating Hormone 0.268 uIU/mL (0.465-4.680)
[2024-10-11 10:46] LABS: Vitamin D 25 Hydroxy 61.5 ng/mL
[2024-10-12 08:23] LABS: Add Urine Microscopic? NO; Appearance Urine Clear (Clear); Bilirubin Urine Negative (Negative); Blood Urine Negative (Negative); Color Urine Yellow (Yellow); Glucose Urine UA Negative (Negative); Ketones Urine Negative (Negative); Leukocyte Esterase Ur Negative LEU/UL (Negative); Nitrate Urine Negative (Negative); Protein Urine Negative (Negative); Specific Grav Ur 1.018 (1.001-1.035); Urobilinogen Urine 0.2 mg/dL (<2.0); pH Urine 6.5 (5.0-9.0)
== END 2024-10-11 09:25 | disposition home or self-care (01) ==
LOC: ANHLAB 09:26
PROVIDERS: PCP Emergency Medicine; Visit Provider Specialist
DX: I12.9 Hypertensive chronic kidney disease with stage 1 through stage 4 chronic kidney disease, or unspecified chronic kidney disease (principal); N18.30 Chronic kidney disease, stage 3 unspecified; E21.3 Hyperparathyroidism, unspecified; E55.9 Vitamin D deficiency, unspecified; E78.41 Elevated Lipoprotein(a); N39.0 Urinary tract infection, site not specified; R35.0 Frequency of micturition; R73.09 Other abnormal glucose; R94.6 Abnormal results of thyroid function studies
CPT/HCPCS: 36415; 80053; 81003; 82043; 82306; 83970; 84443; 84550; 85025

== ENCOUNTER 2024-11-15 10:18 | Outpatient (CLI) | payer MEDICARE, MEDICAID, SELFPAY ==
[2024-11-15 11:02] LABS: Add Urine Microscopic? NO; Appearance Urine Clear (Clear); Bilirubin Urine Negative (Negative); Blood Urine Negative (Negative); Color Urine Yellow (Yellow); Glucose Urine UA Negative (Negative); Ketones Urine Negative (Negative); Leukocyte Esterase Ur Negative LEU/UL (Negative); Nitrate Urine Negative (Negative); Protein Urine Negative (Negative); Specific Grav Ur 1.018 (1.001-1.035); Urobilinogen Urine 0.2 mg/dL (<2.0); pH Urine 5.5 (5.0-9.0)
[2024-11-15 11:18] LABS: Alanine Aminotransferase 20 U/L (6-35); Albumin Level 4.3 g/dL (3.5-5.1); Alkaline Phosphatase 56 U/L (38-126); Anion Gap 8 mmol/L (4-12); Aspartate Amino Transferase 23 U/L (14-36); Bilirubin,Total 0.3 mg/dL (0.2-1.3); Blood Urea Nitrogen 11 mg/dL (7-17); Calcium 10.5 mg/dL (8.4-10.2); Carbon Dioxide 31 mmol/L (22-30); Chloride 103 mmol/L (98-107); Estimated Glomerular Filt Rate > 60; Glucose 82 mg/dL (65-110); Potassium 3.6 mmol/L (3.4-5.0); Sodium 142 mmol/L (137-145); Uric Acid 3.6 mg/dL (2.5-7.5)
[2024-11-15 11:47] LABS: Thyroid Stimulating Hormone 0.401 uIU/mL (0.465-4.680)
--- OUTSIDE RECORDS SUMMARY | 2024-11-15 11:49 | XMS_ITS ---
Author Organization [facility] Office Address 1400 [facility] 61 [facility] [address] [place] [address] Care Team Providers Care Pipe Or Steam Fitter Furnace Installer Name Role Phone Bipin Daniel Unavailable [phone] MEDICATIONS Medication SIG (Take, Route, Frequency, Duration) Notes Start Date End Date Status Ergocalciferol 1.25 MG (08920 UT) 1 capsule Orally Once a week for 90 days 09/26/2024 12/25/2024 Active Encounters Encounter Location Date Provider Diagnosis [place] [facility] 2043 [facility] [address] [place] [address] 09/26/2024 Daniel Voss PLAN OF TREATMENT Medication Medication Name Sig Start Date Stop Date Notes Ergocalciferol 1.25 MG (5000 0 UT) 1 capsule Orally Once a week for 90 days 09/26/2024 12/25/2024 Next Appt Details Provider Name:Daniel Voss 12/28/2024 03:15:00 PM, 2043 [facility], [facility] 15, [place], [address], Progress Notes * ANTONIO LALAOB:1960 ( 64 yo Other)Acc No.[id number]:09/26/2024 Patient: BRADLY LALA :1960 Age:63 Y Sex:Unknown Address:[address], [place] [address] * Refills Start Ergocalciferol Capsule, 1.25 MG (22348 UT), Orally, 13, 1 capsule, Once a week, 90 days * * Date:
--- OUTSIDE RECORDS SUMMARY | 2024-11-15 11:49 | XMS_ITS ---
Author Organization [facility] Office Address [address] [place] [address] Care Team Providers Care Building Mover Name Role Phone Daniel Voss Unavailable [phone] MEDICATIONS Medication SIG (Take, Route, Frequency, Duration) Notes Start Date End Date Status Losartan Potassium 100 MG 1 tablet Orall y Once a day for 90 days 11/02/2024 Active Encounters Encounter Location Date Provider Diagnosis [place] [facility] 2043 [facility] [address] [place] [address] 11/02/2024 Daniel Voss PLAN OF TREATMENT Medication Medication Name Sig Start Date Stop Date Notes Losartan Potassium 100 MG 1 tablet Orall y Once a day for 90 days 11/02/2024 Next Appt Details Provider Name:Daniel Voss , 12/28/2024 03:15:00 PM, 2043 [facility], [facility] 15, [place], [address], Progress Notes * ANTONIO LALAOB:1960 ( 64 yo Other)Acc No.[id number]:11/02/2024 Patient: BRADLY LALA :1960 Age:63 Y Sex:Unknown Address:[address], [place] [address] * Refills Start Losartan Potassium Tablet, 100 MG, Orally, 90 Tablets, 1 tablet, Once a day, 90 days * * Date:
--- OUTSIDE RECORDS SUMMARY | 2024-11-15 11:49 | XMS_ITS ---
Author Organization [facility] Office Address [address] [facility] 61 [facility] [address] [place] [address] Care Team Providers Care Food Chemist Name Role Phone Daniel Voss Unavailable [phone] PROBLEMS Problem Type ICD Code Onset Dates Problem Status W/U Status Risk SNOMED Code Notes Problem Tobacco use (Z72.0) Active confirmed Tobacco use (314702422) Problem Proteinuria, unspecified (R80.9) Active confirmed Proteinuria (26494256) Encounters Encounter Location Date Provider Diagnosis [place] [facility] 2043 [facility] [address] [place] [address] 11/02/2024 Daniel Voss Chronic kidney disea se, stage 2 (mild) N18.2 ; Type 2 diabetes mellitus without complications E11.9 ; Essential hypertension I10 ; Cyst of kidney, acquired N28.1 ; Renal osteodystrophy N25.0 ; Secondary hyperparathyroidism of renal origin N25.81 ; Tobacco use Z72.0 and Proteinuria, unspecified R80.9 ASSESSMENTS Encounter Date [...] Z72.0) 11/02/2024 Proteinuria, unspecified (ICD-10 - R80.9) PLAN OF TREATMENT Next Appt Details Provider Name:Daniel Voss , 12/28/2024 03:15:00 PM, 2043 [facility], [facility] 15, [place], [address], Progress Notes * ANTONIO LALAOB:1960 ( 64 yo Other)Acc No.[id number]:11/02/2024 Progress Notes Patient: BRADLY LALA Provider: MD GATO, Iram.Pranav.C.P, F.A.S.N. :1960 Age:63 Y Sex:Unknown Date:11/02/2024 Address:[address] [place], [place] [phone] Subjective: * Chief Complaints: * * Medical History: Objective: Assessment: * Assessment: 1. Chronic kidney disease, stage 2 (mild) - N18.2 (Primary) 2. Type 2 diabetes mellitus without complications - E11.9 3. Essential hypertension - I10 4. Cyst of kidney, acquired - N28.1 5. Renal osteodystrophy - N25.0 6. Secondary hyperparathyroidism of renal origin - N25.81 7. Tobacco use - Z72.0 8. Proteinuria, unspecified - R80.9 Plan: * Treatment: * Billing Information: * Visit Code: 18514 Office Visit, Est Pt., Level 4. * Procedure Codes: * Sign off status: Pending * Provider: MD GATO, Iram.Pranav.C.P, F.A.S.N. Date: 11/02/2024
--- OUTSIDE RECORDS SUMMARY | 2024-11-15 11:49 | XMS_ITS | CONTINUITY OF CARE DOCUMENT ---
Author Name joe nelaviktoriya Address Unknown Organization [facility] Address [address] [facility] [address] [place] [address] Phone [phone] Care Team Providers Care City Planner Name Role Phone Richard CRUZ, Darvin Unavailable [phone] MARLO CRUZ, GISEL Unavailable MARLO CRUZ, GISEL Unavailable PROBLEMS Condition Status Date Provider Notes OBESITY active Debbie Stahlschmidt CHEST PAIN-03/02 STRESS ECHO EKG BORDER ISCH active ? Darvin Ramos MD HTN -05/04 ECHO EF 60 05/02 ECHO LVH EF 60 active ? Shailesh Colon RN TOBACCO ABUSE-QUIT active ? Darvin Ramos MD SHORTNESS OF BREATH-05/02 SL EEP STUDY MILD NACHO active ? Darvin Ramos MD DIZZINESS-05/04 HOLTER SR 67-120 active ? Shailesh Colon RN THYROMEGALY active TREY LUNA NP ENCOUNTERS Date Type Provider Location Encounter Diag nosis - In-person encounter Office Visit Darvin Ramos MD [place] [facility] - In-person encounter Office Visit Darvin Ramos MD [place] [facility] THYROMEGALY - In-person encounter Office Visit Darvin Ramos MD [place] [facility] TOBACCO ABUSE-QUIT - In-person encounter Office Visit Darvin Ramos MD [place] [facility] CHEST PAIN-03/02 STRESS ECHO EKG BORDER [...] height E&M 66 [in_i] TREY ALMANZA K PRODUCTION FOREMAN blood pressure, diastolic 78 mm[Hg] Lucius mariam [...] or m ore LinkLog smoking status Smoker [facility] MENTAL STATUS Date Observation Value Provider assessment [...] Payer name Policy type / Coverage type [facility] ID [place] MEDICAID (2) Medicaid [id number] TREATMENT PLAN Date Name Performer Darvin Ramos [...] does not show any wall motion abnormalities. [facility] (03/11/2007) S tress Echo Comments: In view of the changes on the baseline ECG, an Adenosine Cardiolite test may be helpful for further evaluation. [facility] (03/11/2007) E chocardiogram: Normal left ventricular systolic [...] does not show any wall motion abnormalities. [facility] (03/11/2007) S tress Echo Comments: In view of the changes on the baseline ECG, an Adenosine Cardiolite test may be helpful for further evaluation. [facility] (03/11/2007) Darvin Ramos MD routine-chest pain: T [...] LVH. EF 60%. Trace MR. Trace TR. [facility] (05/04/2007) S tress Echo Findings: The ECG part of the stress test is considered to be borderline for ischemia while the echo part of the stress echo does not show any wall motion abnormalities. [facility] (03/11/2007) S tress Echo Comments: In view of the changes on the baseline ECG, an Adenosine Cardiolite test may be helpful for further evaluation. [facility] (03/11/2007) Orders: C omplete Echo ([id number]) Darvin Ramos MD routine: H er updated [...] does not show any wall motion abnormalities. [facility] (03/11/2007) S tress Echo Comments: In view [...]
--- OUTSIDE RECORDS SUMMARY | 2024-11-15 11:49 | XMS_ITS | Data Portability ---
Author Organization [place] [facility], Main Office Address [address] [place] [address] Care Team Providers Care Straightener Name Role Phone CIPRIANO GREENWOOD Primary Care Provider CIPRIANO GREENWOOD Referring Provider Assessment Encounter Date [...] DO Not Attach Compendium, Do Not Delete/merge, [id number] 10/11/2024 09:02:16 injection /aspirati on joint/bur sa (PROC) 2023 024 In-Office Order, Internal Use Only DO Not Attach Compendium DO Not Attach Compendium, Do Not Delete/merge, [id number] 07/12/2024 09:15:16 Surgeries endoscopy , nasal/sin us, w/ maxillary antrostom y & tissue removal (SURG) 2023 024 Not available 05/06/2024 11:17:35 Imaging None recorded. Medication Orders bupivacai ne HCl 0.5 % (5 mg/mL) injection solution 2024 025 [email or web address] [id number] [address], [place], [place], [id number], 10/11/2024 09:55:34 Kenalog 10 mg/mL suspensio n for injection 2024 025 [email or web address] [facility] #[id number], [address], [place], [place], [id number], 10/11/2024 09:55:34 bupivacai ne HCl 0.5 % (5 mg/mL) injection solution 2023 024 Not available 09/14/2024 09:24:04 triamcino lone acetonide 40 mg/mL suspensio n for injection 2023 024 [email or web address] Not available 09/15/2024 12:42:06 Patient TargetsNo targets recorded. Patient Instructions Encounter Date Encounter Id Patient Instructions Last Modified By Organization Details Last Modified Time 05/23/2024 [id number] Continue use of saline rinses as needed. Follow-up with the office as needed. Not available 05/23/2024 10:32:30 09/15/2024 [id number] the patient is placed on [email or web address] Not available 09/15/2024 13:07:30 Reason for Referral None Reported. Results Created Date Observation Date Name Description Value Unit Range Abnormal Flag Note LastModifiedBy Organization Detail LastModifiedTime 05/11/2005/11/2024 POTAS SIUM potassium 3.6 mmol/ L 3.5-5. 1 Not Available [facility] (Lab) [address] [place], [address], 05/11/2024 12:55:09 05/11/2005/11/2024 HEMOG LOBIN /AVERY TOCRI T hemoglobin 14.2 g/dL 12.0-1 5.6 Not Available [facility] (Lab) [address] [place], [address], 05/11/2024 13:00:54 05/11/2005/11/2024 HEMOG LOBIN /AVERY TOCRI T hematocrit 45.3 % 35.7-4 5.7 Not Available [facility] (Lab) [address] [place], [address], 05/11/2024 13:00:54 05/11/20 24 05/11/2024 PLATE LET COUNT platelets 346 x10'3 /uL 150-40 0 Not Available [facility] (Lab) [address] [place], [address], 05/11/2024 13:00:58 05/11/2005/11/2024 GLUCO SE (POIN T OF CARE) glucose (point of care) 87 mg/dL 74-99 Not Available [facility] (Lab) [address] [place], [address], 05/11/2024 13:30:24 04/12/20 XR, knee No observ ation record ed. [email or web address] [facility] [address], [place], [address], 04/12/2024 09:17:13 04/19/20 24 04/19/2024 CT, sinus es, w/o contr ast No observ ation record ed. [facility] ([facility] Sched[facility]) [address], [place], [address], 04/20/2024 09:46:41 04/22/20 24 04/22/2024 CT, maxil lofac ial, w/o contr ast No observ ation record ed. Not Available 2023 09:01:42 09/15/19 25 08/29/2024 CT, head, w/o contr ast No observ ation record ed. [email or web address] Not Available 09/15 12:52:22 09/15/19 25 08/29/2024 CT, maxil lofac ial, w/o contr ast No observ ation record ed. [email or web address] Not Available 09/15 12:52:55 Result Notes None recorded. Problems Name Problem SNOMED Code Status Onset Date Resolution Date Notes Provider Name and Address Organization Details Recorded Time Contusion of right foot 8414986032902 9103 Active 2021 Not Available [facility] 3 02:50:45 Disorder of trunk 414572243 Active Not Available [facility] 3 02:50:45 Plantar fascial fibromatos is 15227453 Active Not Available [facility] 3 02:50:45 Heartburn 27964812 Active Not Available [facility] 3 02:50:45 Chronic diarrhea 931255381 Active Not Available [facility] 3 02:50:45 Gastroesop hageal reflux disease without esophagiti s 352175707 Active 2021 Not Available [facility] 3 02:50:45 Low back pain 764555549 Active Not Available [facility] 3 02:50:45 Cyst of skin 852296794 Active Not Available [facility] 3 02:50:45 Right upper quadrant pain 191473751 Active 2021 Not Available [facility] 3 02:50:46 Current tear of lateral cartilage AND/OR meniscus of knee Active Not Available [facility] 3 02:50:46 Pain in right foot 7027509379559 07 Active 2021 Not Available [facility] 3 02:50:46 Lesion of ulnar nerve 183216379 Active Not Available [facility] 3 02:50:46 Osteoarthr itis 253963210 Active Not Available [facility] 3 02:50:46 Obesity 721911613 Active Not Available [facility] 3 02:50:46 Anxiety 86352284 Active Not Available [facility] 3 02:50:46 Carpal tunnel syndrome 71923453 Active Not Available [facility] 3 02:50:46 Essential hypertensi on 81775014 Active Not Available [facility] 3 02:50:46 Bilateral osteoarthr itis of knees 4423013288044 07 Active 2022 NEREIDA Chang, [place] [facility] 3 09:00:41 Osteoarthr itis of right knee joint 4356216615475 00 Active 2022 NEREIDA Chang null, [place] [facility] 3 09:02:57 Pain of bilateral knee joints 9748747482464 04 Active 2023 NEREIDA Sue null, [place] [facility] 4 09:14:49 Chronic sinusitis 22094571 Active 2023 Tali Marques RN null, [place] [facility] 4 09:29:28 Chronic left maxillary sinusitis 5688246254821 9101 Active 2023 Bib Mondragon MD [address], [place] [address], [place], [address] , [place] [facility] 4 16:01:52 Postoperat carrie pain 480294726 Active 2023 Bib Mondragon MD [address], [place], [address] , [facility] [employer] [facility] 17:24:24 Left mastoiditi s 2119833751555 109 Active 2024 Bib Mondragon MD [address], [facility] [address], [place], [address] , [facility] [employer] [facility] 13:07:13 Notes:Some problems listed i n Document: #[id number] could not be added to this patient's chart. Please review this document and add these problems to the patient's chart manually as needed. Problem Notes None recorded. Procedures Surgical History Date Name Laterality Status Provider Name and Address Organization Details Recorded Time 024 ENDOSCOPY, NASAL/SINUS, W/ MAXILLARY ANTROSTOMY & TISSUE REMOVAL (SURG) completed Tali Marques RN [facility] [employer] [facility] 05/20/2024 14:51:00 024 Ortho - Cortisone Injection completed Ralph Lind MD [address], [facility] [address], [place], [address], [facility] [employer] [facility] 01/11/2024 10:05:37 017 colonoscopy completed Not Available [facility] 09/24/2022 02:44:34 017 Endoscopy completed Not Available [facility] 09/24/2022 02:44:34 008 Sinus Surgery completed Tali Marques RN [facility] [employer] [facility] 04/14/2024 09:20:40 excision completed Not Available [facility] 09/24/2022 02:44:34 Hysterectomy completed Not Available [facility] 09/24/2022 02:44:34 Gastrointestinal Procedure completed Not Available [facility] 09/24/2022 02:44:34 ligation of bilateral fallopian tubes completed Not Available [facility] 09/24/2022 02:44:34 Imaging Results Imaging Date Name Status LastModified by Organiz ation Details LastModified Time 04/12/2024 XR, knee completed [email or web address] [facility] [address], [place], [address], 04/12/2024 09:17:13 04/19/2024 CT, sinuses, w/o contrast completed [facility] ([facility] Sched[facility]) [address], [place], [address], 04/20/2024 09:46:41 04/22/2024 CT, maxillofacial , w/o contrast completed Information not available 05/05/2024 09:01:42 08/29/2024 CT, head, w/o contrast completed Information not available 09/15/2024 12:52:22 08/29/2024 CT, maxillofacial , w/o contrast completed [email or web address] Information not available 09/15/2024 12:52:55 Procedure Notes [...] 40 mg by injection route. 2024 active [facility]: [phone] Not Available Not Available [...] administe red by the provider 10/23 completed [facility]: [phone] Not Available Not Available [...] 8 mg by injection route. 07/12 completed [facility] [phone] Not Available Not Available Not [...] Updated DateTime 05/05/2024 170.18 cm 30.8 kg/m2 66085.54 g 97.7 [degF] Tali Marques RN [facility] [employer] [facility] 05/05/2024 15:49:30 Date Recorded Body height Body mass index (BMI) Body weight Provider Name and Address Organization Details Last Updated DateTime 05/23/2024 170.18 cm 31 kg/m2 62922.01 g Tali Marques RN [facility] [employer] [facility] 05/23/2024 09:53:44 Date Recorded Body height Body mass index (BMI) Body weight Provider Name and Address Organization Details Last Updated DateTime 07/12/2024 170.18 cm 29.6 kg/m2 12329.96 g Meenu Lam CNA [facility] [employer] [facility] 07/12/2024 09:09:34 Date Recorded Body height Body mass index (BMI) Body weight Body temperature Provider Name and Address Organization Details Last Updated DateTime 09/15/2024 170.18 cm 30.3 kg/m2 05084.76 g 97.3 [degF] Zarina Chapa [facility] [employer] [facility] 09/15/2024 12:40:46 Date Recorded Body height Body mass index (BMI) Body weight Provider Name and Address Organization Details Last Updated DateTime 10/11/2024 170.18 cm 29.9 kg/m2 11202.14 g Mis Miner [place] [facility] [place] [employer] 10/11/2024 09:00:45 Social History Question Answer Notes LastModified by Organizat ion Details LastModified Time Tobacco Smoking Status Current Every Day Smoker Not Available [facility] 09/24/2022 02:35:40 Do You Have An Advance Directive? No [id number] Information not available 09/24/2022 What Is Your Level Of Alcohol Consumption? None MIGRATION.132873 2438 Information not available 09/24/2022 What Is Your Level Of Caffeine Consumption? Heavy MIGRATION.611248 7032 Information not available 09/24/2022 How Much Tobacco Do You Chew? None MIGRATION.531758 9149 Information not available 09/24/2022 In The 14 Days Before Symptom Onset, Have You Had Close Contact With A Laboratory-confir med COVID-19 While That Case Was Ill? No MIGRATION.652305 5732 Information not available 09/24/2022 In The 14 Days Before Symptom Onset, Have You Had Close Contact With A Person Who Is Under Investigation For COVID-19 While That Person Was Ill? No MIGRATION.978462 4121 Information not available 09/24/2022 What Type Of Diet Are You Following? REGULAR MIGRATION.365633 8723 Information not available 09/24/2022 Which Illicit Or Recreational Drugs Have You Used? None MIGRATION.273221 8610 Information not available 09/24/2022 Do You Or Have You Ever Used E-cigarettes Or Vape? Never Used Electronic Cigarettes MIGRATION.557624 5174 Information not available 09/24/2022 What Is Your Occupation? Unemployed MIGRATION.314802 9500 Information not available 09/24/2022 What Was The Date Of Your Most Recent Tobacco Screening? 09/15/2024 [email or web address] Information not available 09/15/2024 What Is Your Relationship Status? MIGRATION.943231 6936 Information not available 09/24/2022 Do You Or Have You Ever Used Smokeless Tobacco? Never Used Smokeless Tobacco MIGRATION.524424 9877 Information not available 09/24/2022 How Much Tobacco Do You Smoke? 1 PPW Information not available 07/12/2024 Do You Use Sunscreen Routinely? No MIGRATION.664949 6305 Information not available 09/24/2022 How Many Years Have You Smoked Tobacco? 19 Information not available 07/12/2024 Sex: Female Functional Status Question Answer Note LastModified by Organizat ion Details LastModified Time What is your exercise level? Moderate MIGRATION.[id number] 6 Information not available 09/24/2022 Mental Status None recorded. Family History Relationship Description Onset Age of this Age Resolved Age Notes LastModified by Organization Details LastModified Time Sister Diabetes mellitus MIGRATION.430 [id number] Not available 09/24/2022 02:44:37 Sister Asthma MIGRATION.641 [id number] Not available 09/24/2022 02:44:37 Sister Malignant tumor of rectum MIGRATION.542 7801516 Not available 09/24/2022 02:44:37 Mother Hypertensive disorder MIGRATION.099 1554800 Not available 09/24/2022 02:44:37 Mother Hypercholest erolemia MIGRATION.666 5283409 Not available 09/24/2022 02:44:37 Brother Alcoholism MIGRATION.244 0961115 Not available 09/24/2022 02:44:37 Father Malignant tumor of colon MIGRATION.001 1580600 Not available 09/24/2022 02:44:37 Daughter Anxiety MIGRATION.243 1651510 Not available 09/24/2022 02:44:37 Daughter Depressive disorder MIGRATION.053 2793100 Not available 09/24/2022 02:44:37 Unspecified Relation Diabetes [...] SNOMED-CT Code Diagnosis ICD10 Code Diagnosis Note [id number] [facility] [address] [place] [address] 10/04/2020 00:00:00 10/04/2020 09:55:57 [id number] [facility] [address] [address] 10/30/2020 00:00:00 10/30/2020 13:50:49 [id number] [facility] [address] [address] 11/27/2020 00:00:00 11/27/2020 13:56:11 [id number] [facility] [address] [place] [address] 12/04/2020 00:00:00 12/04/2020 15:53:22 [id number] _ATHENA_M IGRATION_ DEFAULT_1 _1 , 12/26/2020 00:00:00 12/26/2020 12:48:07 [id number] [facility] [address] [address] 01/17/2021 00:00:00 01/17/2021 10:30:23 [id number] [facility] [address] [address] 04/18/2021 00:00:00 04/18/2021 14:57:07 [id number] [facility] [address] [address] 07/18/2021 00:00:00 07/18/2021 09:40:37 [id number] [facility] [address] [address] 10/17/2021 00:00:00 10/17/2021 09:29:07 [id number] [facility] [address] [address] 01/14/2022 00:00:00 01/14/2022 09:51:24 [id number] _ATHENA_M IGRATION_ DEFAULT_1 _1 , 04/09/2022 00:00:00 04/09/2022 14:28:48 [id number] [facility] [address] [address] 04/24/2022 00:00:00 04/24/2022 09:31:35 [id number] [facility] [address] [address] 07/24/2022 00:00:00 07/24/2022 09:11:05 [id number] Moses Montemayor MD [facility] [address] [address] 10/23/2022 08:55:52 10/23/2022 09:57:48 Bilateral osteoarthritis of knees 5377232329 14338 M17.0 [id number] Moses Montemayor MD [facility] [address] [address] 01/15/2023 08:53:20 01/26/2023 09:20:35 Osteoarthritis of right knee joint 2272448808 34438 M17.11 [id number] POOJA Law [facility] [address] [address] 04/16/2023 08:48:17 04/16/2023 09:38:50 Bilateral osteoarthritis of knees 0540799440 69522 M17.0 [id number] POOJA Law [facility] [address] [address] 07/16/2023 14:55:40 07/16/2023 16:08:32 Bilateral osteoarthritis of knees 6705657678 33739 M17.0 [id number] POOJA Law [facility] [address] [address] 10/15/2023 09:29:16 10/15/2023 09:41:34 Bilateral osteoarthritis of knees 0739725843 38405 M17.0 [id number] Ralph Lind MD [facility] [address] [address] 01/11/2024 09:06:30 01/11/2024 09:53:17 Pain of bilateral knee joints 1603897121 36555 M25.135 [id number] ROSEMARY Leon [facility] [place] [address] [place], [place] [address] 04/14/2024 09:12:51 04/14/2024 09:37:42 Chronic sinusitis 46620813 J32.9 [id number] POOJA Mathur [facility] [address] [address] 04/12/2024 08:49:45 04/12/2024 09:18:35 Bilateral osteoarthritis of knees 9992840414 64172 M17.0 Pain of bi lateral knee joints 5928828765 06253 M25.167 [id number] MD ZENAIDA [facility] [address] [place], [place] [address] 05/05/2024 15:22:02 05/06/2024 11:04:20 Chronic left maxillary sinusitis 1272470646 1197117 J32.0 [id number] ROSEMARY Leon [facility] [address] [place] [address] 05/23/2024 09:35:16 05/23/2024 10:33:00 Postoperative visit 456380764 Z48.89 05/11/2024 postoperat carrie from left maxillary antrostomy . [id number] POOJA [facility] [address] [address] 07/12/2024 08:55:20 07/12/2024 09:34:43 Bilateral osteoarthritis of knees 9136554153 08980 M17.0 Pain of bi lateral knee joints 2317290716 40311 M25.305 [id number] MD ZENAIDA [facility] [address] [place] [address] 09/15/2024 12:06:57 09/16/2024 16:09:45 Left mastoiditis 1195025789 489763 H75.02 [id number] POOJA Mathur [facility] [address] [address] 10/11/2024 08:51:51 10/11/2024 09:14:15 Bilateral osteoarthritis of knees 4394358137 00970 M17.0 Pain of bi lateral knee joints 7701378386 78049 M25.569 Health Concerns Section Related Observation LastModified by Organization Detai ls LastModified Time None Recorded Concern Status LastModified by Organization Details LastModified Time None Recorded Advance Directives Directive N: Payers Encounter Date Sequence Insurance Name Policy Number Policy Morataya Covered Member ID Morataya Member ID Guarantor Name 05/05/2024 1 [facility] (MEDICARE REPLACEMENT/AD VANTAGE - PPO) [id number] Rebecca R [place] [id number] Rebecca R [place] 05/05/2024 2 [place] [facility] Rebecca R [place] [id number] Rebecca R [place] 05/23/2024 1 [facility] (MEDICARE REPLACEMENT/AD VANTAGE - PPO) [id number] Rebecca R [place] [id number] Rebecca R [place] 05/23/2024 2 [place] [facility] Rebecca R [place] [id number] Rebecca R [place] 07/12/2024 1 [facility] (MEDICARE REPLACEMENT/AD VANTAGE - PPO) [id number] Rebecca R [place] [id number] Rebecca R [place] 07/12/2024 2 [place] OR MEDIC[place] REPLACEMENT PRIMARY) Rebecca R [place] [id number] Rebecca R [place] 09/15/2024 1 [facility] (MEDICARE REPLACEMENT/AD VANTAGE - PPO) [id number] Rebecca R [place] [id number] Rebecca R [place] 09/15/2024 2 [place]IC[place] REPLACEMENT [place]IMARY) Rebecca R [place] [id number] Rebecca R [place] 10/11/2024 1 [facility] (MEDICARE REPLACEMENT/AD VANTAGE - PPO) [id number] Rebecca R [place] [id number] Rebecca R [place] 10/11/2024 2 [place]IC[place] REPLACEMENT [place]IMARY) Rebecca R [place] [id number] Rebecca R [place] Notes Date Note Type Note Provider Name and Address Organization Details Recorded Time 05/05/2024 text/html the CT scan demonstrates left chronic maxillary sinusitis there is also a right orbital floor fracture with herniation. This is nonacute Bib Mondragon MD [address] [place] [address], [facility] [address], [place], [address], [employer] 05/05/2024 16:02:23 05/23/2024 text/html This patient pre [...] ROSEMARY Leon [address], [place], [address], [employer] 05/23/2024 10:32:34 07/12/2024 text/html Patient returns she [...] with the patient. POOJA Mathur [address], [place], [address], [employer] 07/12/2024 09:32:59 09/15/2024 text/html the patient repo rts sneezing causing occipital pain. A CT scan revealed left mastoid iritis and an old orbital floor fracture. Otherwise the paranasal sinuses were normal Bib Mondragon MD [address], [facility] [address], [place], [address], [employer] [facility] 09/15/2024 13:07:52 10/11/2024 text/html Patient returns with [...] have worn off. POOJA Mathur [address], [facility] [address], [place], [address], [employer] 10/11/2024 09:13:25 OBGyn Episode No OBEpisode recorded.
--- OUTSIDE RECORDS SUMMARY | 2024-11-15 11:49 | XMS_ITS | Patient Health Record ---
Author Organization [facility] Address [address] [place] [address] Care Team Providers Care Java Lead Architect Name Role Phone Daniel Voss Unavailable [phone] REASON FOR REFERRAL No Information MEDICATIONS Medication SIG (Take, Route, Frequency, Duration) Notes Start Date End Date Status Ergocalciferol 1.25 MG (00308 UT) 1 capsule Orally Once a week for 90 days 09/26/2024 12/25/2024 Active Losartan Potassium 100 MG 1 tablet Orall y Once a day for 90 days 11/02/2024 Active PROBLEMS Problem Type ICD Code Onset Dates Problem Status W/U Status Risk SNOMED Code Notes Problem Type 2 diabetes mellitus without complications (E11.9) Active confirmed Type I I diabetes mellitus without complication (392749663) Problem Chronic kidney disease, stage 2 (mild) (N18.2) Active confirmed Chronic kidne y disease stage 2 (848508211) Problem Renal osteodystrophy (N25.0) Active confirmed Renal osteodyst rophy (55453155) Problem Secondary hyperparathyroidism of renal origin (N25.81) Active confirmed Secondary hyperparathyroidism of renal origin (99098559) Problem Cyst of kidney, acquired (N28.1) Active confirmed Acquired re nal cystic disease (612358113) Problem Proteinuria, unspecified (R80.9) Active confirmed Proteinu tommy (93430104) Problem Tobacco use (Z72.0) Active confirmed To bacco use (853429098) Problem Essential hypertension (I10) Active confirmed Essential hypertension (03360505) Encounters Encounter Location Date Provider Diagnosis [place] [facility] [address] [facility] [address] [place] [address] 06/10/2024 Daniel Voss Chronic kidney disea se, stage 1 N18.1 ; Type 2 diabetes mellitus without complications E11.9 ; Essential hypertension I10 and Cyst of kidney, acquired N28.1 [facility] [place] [facility] [address] [place] [address] 07/01/2024 Daniel Voss Chronic kidney disea se, stage 2 (mild) N18.2 ; Type 2 diabetes mellitus without complications E11.9 ; Essential hypertension I10 and Cyst of kidney, acquired N28.1 [place] [facility] [address] [address] 08/12/2024 Daniel Voss Chronic kidney disea se, stage 2 (mild) N18.2 ; Essential hypertension I10 ; Cyst of kidney, acquired N28.1 ; Renal osteodystrophy N25.0 ; Secondary hyperparathyroidism of renal origin N25.81 and Proteinuria, unspecified R80.9 [place] [facility] [address] [place] [address] 09/16/2024 Daniel Voss [place] [facility] [address] [address] 09/23/2024 Daniel Voss Chronic kidney disea se, stage 2 (mild) N18.2 ; Type 2 diabetes mellitus without complications E11.9 ; Essential hypertension I10 ; Cyst of kidney, acquired N28.1 ; Renal osteodystrophy N25.0 and Secondary hyperparathyroidism of renal origin N25.81 [place] [facility] [address] [address] 11/02/2024 Daniel Voss Chronic kidney disea se, stage 2 (mild) N18.2 ; Type 2 diabetes mellitus without complications E11.9 ; Essential hypertension I10 ; Cyst of kidney, acquired N28.1 ; Renal osteodystrophy N25.0 ; Secondary hyperparathyroidism of renal origin N25.81 ; Tobacco use Z72.0 and Proteinuria, unspecified R80.9 [place] [facility] [address] [address] 09/26/2024 Daniel [facility] [address] [place] [address] 11/02/2024 Daniel Voss ASSESSMENTS Encounter Date Diagnosis Assessment [...] stage 2 (mild) (ICD-10 - N18.2) 11/02/2024 Chronic kidney disea se, stage 2 (mild) (ICD-10 - N18.2) 11/02/2024 Type 2 diabetes mellitus without complications (ICD-10 - E11.9) 09/23/2024 Type 2 diabetes mellitus without complications (ICD-10 - E11.9) 08/12/2024 Cyst of kidney, acquired (ICD-10 - N28.1) 06/10/2024 Essential hypertensi on (ICD-10 - I10) 07/01/2024 Type 2 diabetes mellitus without complications (ICD-10 - E11.9) 06/10/2024 Cyst of kidney, acquired (ICD-10 - N28.1) 08/12/2024 Renal osteodystrophy (ICD-10 - N25.0) 07/01/2024 Essential hypertensi on (ICD-10 - I10) 09/23/2024 Essential hypertensi on (ICD-10 - I10) 11/02/2024 Essential hypertensi on (ICD-10 - I10) 11/02/2024 Cyst of kidney, acquired (ICD-10 - N28.1) 09/23/2024 Cyst of kidney, acquired (ICD-10 - N28.1) 08/12/2024 Secondary hyperparathyroidism of renal origin (ICD-10 - N25.81) 07/01/2024 Cyst of kidney, acquired (ICD-10 - N28.1) 09/23/2024 Renal osteodystrophy (ICD-10 - N25.0) 08/12/2024 Proteinuria, unspecified (ICD-10 - R80.9) 11/02/2024 Renal osteodystrophy (ICD-10 - N25.0) 11/02/2024 Secondary hyperparathyroidism of renal origin (ICD-10 - N25.81) 09/23/2024 Secondary hyperparathyroidism of renal origin (ICD-10 - N25.81) 11/02/2024 Tobacco use (ICD-10 - Z72.0) 11/02/2024 Proteinuria, unspecified (ICD-10 - R80.9) PLAN OF TREATMENT Next Appt Details Provider Name:Daniel Voss , 12/28/2024 03:15:00 PM, [address] [facility] [address], [address],
[2024-11-15 11:57] LABS: Creatinine Urine 101.2 mg/dL
[2024-11-15 12:03] LABS: Microalbumin Urine Random 20.2 mg/L (0-16.7)
[2024-11-15 12:35] LABS: Parathyroid Intact 39.6 pg/mL (14.5-75.2)
== END 2024-11-15 10:19 | disposition home or self-care (01) ==
LOC: ANHLAB 10:21
PROVIDERS: PCP Emergency Medicine; Visit Provider Specialist
DX: E21.3 Hyperparathyroidism, unspecified (principal); E55.9 Vitamin D deficiency, unspecified; E78.41 Elevated Lipoprotein(a); N39.0 Urinary tract infection, site not specified; R35.0 Frequency of micturition; R73.09 Other abnormal glucose; R94.6 Abnormal results of thyroid function studies; I12.9 Hypertensive chronic kidney disease with stage 1 through stage 4 chronic kidney disease, or unspecified chronic kidney disease; N18.2 Chronic kidney disease, stage 2 (mild)
CPT/HCPCS: 36415; 80053; 81003; 82043; 82306; 83970; 84443; 84550

== ENCOUNTER 2025-01-23 10:29 | Outpatient (CLI) | payer MEDICARE, MEDICAID, SELFPAY ==
[2025-01-23 11:11] LABS: Add Urine Microscopic? YES; Appearance Urine Clear (Clear); Bacteria Urine Rare /hpf; Bilirubin Urine Negative (Negative); Blood Urine Negative (Negative); Color Urine Yellow (Yellow); Glucose Urine UA Negative (Negative); Ketones Urine Trace mg/dL (Negative); Leukocyte Esterase Ur Trace LEU/UL (Negative); Nitrate Urine Negative (Negative); Non Pathogenic Casts 0-2; Protein Urine Negative (Negative); RBC Urine 0-2 /hpf (0-2); Specific Grav Ur 1.014 (1.001-1.035); Squamous Epithelial Cell Urine Moderate /hpf (Few); Urobilinogen Urine 0.2 mg/dL (<2.0); WBC Urine 0-5 /hpf (0-3); pH Urine 6.5 (5.0-9.0)
[2025-01-23 11:18] LABS: Creatinine Urine 123.3 mg/dL
[2025-01-23 11:20] LABS: MALB Creatinine Ratio 13.3 mg/g (0-30); Microalbumin Urine Random 16.4 mg/L (0-16.7)
[2025-01-23 11:23] LABS: Alanine Aminotransferase 19 U/L (6-35); Albumin Level 4.1 g/dL (3.5-5.1); Alkaline Phosphatase 50 U/L (38-126); Anion Gap 6 mmol/L (4-12); Aspartate Amino Transferase 21 U/L (14-36); Bilirubin,Total 0.3 mg/dL (0.2-1.3); Blood Urea Nitrogen 10 mg/dL (7-17); Calcium 10.3 mg/dL (8.4-10.2); Carbon Dioxide 31 mmol/L (22-30); Chloride 104 mmol/L (98-107); Estimated Glomerular Filt Rate 59; Glucose 106 mg/dL (65-110); Potassium 4.1 mmol/L (3.4-5.0); Sodium 141 mmol/L (137-145); Total Protein 6.9 g/dL (6.3-8.2)
[2025-01-23 11:32] LABS: Parathyroid Intact 46.4 pg/mL (14.5-75.2)
[2025-01-23 11:41] LABS: Vitamin D 25 Hydroxy 61.5 ng/mL
[2025-01-23 12:15] LABS: Hemoglobin A1C. 5.9 % (<5.7)
== END 2025-01-23 10:30 | disposition home or self-care (01) ==
PROVIDERS: PCP Physician Assistant Medical; Visit Provider Specialist
DX: R94.6 Abnormal results of thyroid function studies (principal); E21.3 Hyperparathyroidism, unspecified; I12.9 Hypertensive chronic kidney disease with stage 1 through stage 4 chronic kidney disease, or unspecified chronic kidney disease; N18.2 Chronic kidney disease, stage 2 (mild); E55.9 Vitamin D deficiency, unspecified; E78.41 Elevated Lipoprotein(a); N39.0 Urinary tract infection, site not specified; R35.0 Frequency of micturition; R73.09 Other abnormal glucose
CPT/HCPCS: 36415; 80053; 81001; 82043; 82306; 83036; 83970; 84443; 84550

== ENCOUNTER 2025-04-21 08:12 | Outpatient (CLI) | payer MEDICARE, MEDICAID, SELFPAY ==
--- OUTSIDE RECORDS SUMMARY | 2024-09-16 07:45 | XMS_ITS ---
Author Organization [facility] Address [address] [facility] 61 [facility] [address] [place] [address] Care Team Providers Care Plastics Patternmaker Name Role Phone Bipin Daniel Unavailable [phone] Social History Sex Assigned At : Social History Observation Description Sex Assigned At Female Encounters Encounter Location Date Provider Diagnosis [place] [facility] 2043 [facility] 15 [place] [address] 09/16/2024 Daniel Voss Plan Of Treatment Next Appt Details Provider Name:Daniel Voss , 06/07/2025 02:30:00 PM, 2043 [facility], [facility], [place], [address], Progress Notes * ANTONIO LALAOB:1960 ( 64 yo F)Acc No.[id number]:09/16/2024 Progress Notes Patient: BRADLY BARR Provider: Thea HARRISON MD, Iram.Pranav.C.P, F.A.S.N. :1960 A ge:63 Y S ex:Female Date:09/16/2024 Address:[address] Subjective: * Chief Complaints: * * Medical History: Objective: * Vitals: Assessment: Plan: * Treatment: * Billing Information: * Visit Code: * Procedure Codes: * Electronic signature of Tray Voss MD on 04/21/2025 at 08:16 AM CDT Sign off status: Pending * Provider: Thea HARRISON MD, Iram.Pranav.C.P, F.A.S.N. Date: 0 09/16/2024 Generated for Printing/Faxing/eTransmitting on: 0 04/21/2025 08:16 AM CDT
--- OUTSIDE RECORDS SUMMARY | 2024-09-23 08:30 | XMS_ITS ---
Author Organization [facility] Address [address] [place] [address] Care Team Providers Care Health Systems Analyst Name Role Phone Voss Daniel Unavailable [phone] Social History Sex Assigned At : Social History Observation Description Sex Assigned At Female Encounters Encounter Location Date Provider Diagnosis [place] [facility] [address]43 [facility] [address] [place] [address] 09/23/2024 Daniel Voss Chronic kidney disea se, [...] Name:Daniel Voss , 06/07/2025 02:30:00 PM, 2043 [facility], [address], [place], [address], Progress Notes * SPIKE PATTYBATOOLOB:1960 ( 64 yo F)Acc No.[id number]:09/23/2024 Progress Notes Patient: BRADLY BARR Provider: Thea HARRISON MD, Mikaela, F.A.S.N. :1960 A ge:63 Y S ex:Female Date:09/23/2024 Address:[address] [place], [place] [id number] Subjective: * Chief Complaints: * * Medical [...] Treatment: * Billing Information: * Visit Code: 66836 Office Visit, Est Pt., Level 4. * Procedure Codes: * Electronic signature of Tray Voss MD on 04/21/2025 at 08:16 AM CDT Sign off status: Pending * Provider: Thea HARRISON MD, Mikaela, F.A.S.N. Date: 09/23/2024 Generated for Printing/Faxing/eTransmitting on: 04/21/2025 08:16 AM CDT
--- OUTSIDE RECORDS SUMMARY | 2024-11-02 10:15 | XMS_ITS ---
Author Organization [facility] Office Address [address] [place] [address] Care Team Providers Care Fabric Lay Out Worker Name Role Phone Bipin Daniel Unavailable [phone] Social History Sex Assigned At : Social History Observation Description Sex Assigned At Female Problems Problem Type SNOMED Code ICD Code Onset Dates Problem Status W/U Status Risk Notes Problem Tobacco use (115876428) Tobacco use (Z72.0) Active confirmed Problem Proteinuria (28166015) Proteinuria, unspecified (R80.9) Active confirmed Encounters Encounter Location Date Provider Diagnosis [place] [facility] [address] [facility] [address] [place] [address] 11/02/2024 Daniel Voss Chronic kidney disea se, [...] 02:30:00 PM, [address], [address], [place], [address], Progress Notes * ANTONIO LALAOB:1960 ( 64 yo F)Acc No.[id number]:11/02/2024 Progress Notes Patient: BRADLY BARR Provider: Thea HARRISON MD, F.Pranav.C.P, F.A.S.N. :1960 A ge:63 Y S ex:Female Date:11/02/2024 Address[address] Subjective: * Chief Complaints: * * Medical [...] Treatment: * Billing Information: * Visit Code: 39342 Office Visit, Est Pt., Level 4. * Procedure Codes: * Electronic signature of Tray Voss MD on 04/21/2025 at 08:16 AM CDT Sign off status: Pending * Provider: Thea HARRISON MD, F.Pranav.C.P, F.A.S.N. Date: 0 11/02/2024 Generated for Printing/Faxing/eTransmitting on: 04/21/2025 08:16 AM CDT
--- OUTSIDE RECORDS SUMMARY | 2024-12-28 10:15 | XMS_ITS ---
Author Organization [facility] Address [address] [place] [address] Care Team Providers Care Technical Training Specialist Name Role Phone Bipin Daniel Unavailable [phone] Social History Sex Assigned At : Social History Observation Description Sex Assigned At Female Encounters Encounter Location Date Provider Diagnosis [place] [facility] [address] [facility] 15 [place] [address] 12/28/2024 Daniel Voss Chronic kidney disea se, [...] Name:Daniel Voss , 06/07/2025 02:30:00 PM, [address] [facility], [address], [place], [address], Progress Notes * ANTONIO LALAOB:1960 ( 64 yo F)Acc No.[id number]:12/28/2024 Progress Notes Patient: BRADLY BARR Provider: Thea HARRISON MD, Iram.Pranav.C.P, F.A.S.N. :1960 A ge:64 Y S ex:Female Date:12/28/2024 Address:[address] [place], [place] [id number] Subjective: * Chief Complaints: * * Medical [...] Treatment: * Billing Information: * Visit Code: 44764 Office Visit, Est Pt., Level 4. * Procedure Codes: * Electronic signature of Tray Voss MD on 04/21/2025 at 08:16 AM CDT Sign off status: Pending * Provider: Thea HARRISON MD, F.Pranav.C.P, F.A.S.N. Date: 12/28/2024 Generated for Printing/Faxing/eTransmitting on: 0 04/21/2025 08:16 AM CDT
--- OUTSIDE RECORDS SUMMARY | 2025-03-08 09:45 | XMS_ITS ---
Author Organization [facility] Address [address] [place] [address] Care Team Providers Care Lab Support Technician Name Role Phone Daniel Voss Unavailable [phone] Social History Sex Assigned At : Social History Observation Description Sex Assigned At Female Problems Problem Type SNOMED Code ICD Code Onset Dates Problem Status W/U Status Risk Notes Problem Chronic kidney disease stage 3A (disorder) (550232092) Chronic kidney disease, stage 3a (N18.31) Active confirmed Encounters Encounter Location Date Provider Diagnosis [place] [facility] [address] [facility] 15 [place] [address] 03/08/2025 Daniel Voss Chronic kidney disea se, [...] 02:30:00 PM, [address] [facility], [address], [place], [address], Progress Notes * ANTONIO LALAOB:1960 ( 64 yo F)Acc No.[id number]:03/08/2025 Progress Notes Patient: BRADLY BARR Provider: Thea HARRISON MD, F.A.C.P, F.A.S.N. :1960 A ge:64 Y S ex:Female Date:03/08/2025 Address:[address] [place] [address] [id number] Subjective: * Chief Complaints: Objective: Assessment: * [...] Plan: * Billing Information: * Visit Code: 50243 Office Visit, Est Pt., Level 4. * Procedure Codes: * Electronic signature of Tray Voss MD on 04/21/2025 at 08:16 AM CDT Sign off status: Pending * Provider: Thea HARRISON MD, F.A.C.P, F.A.S.N. Date: 0 03/08/2025 Generated for Printing/Faxing/eTransmitting on: 0 04/21/2025 08:16 AM CDT
--- NOTE | ~2025-04-21 | MM_ITS ---
EXAMINATION: MM screening christiane BI w mauro HISTORY: Screening TECHNIQUE: Craniocaudal and mediolateral oblique 3-D tomosynthesis images were obtained and synthetic 2-D images were generated. CAD analysis was submitted and interpreted. COMPARISON: None provided BREAST PARENCHYMAL COMPOSITION: There are scattered areas of fibroglandular density. FINDINGS: There is no evidence of suspicious mass, calcification, or architectural distortion to suggest malignancy in either breast. IMPRESSION: 1. No mammographic evidence of malignancy. 2. Recommend routine screening mammography in one year. BI-RADS Category 1: Negative Reviewed, dictated and finalized at location B.
--- OUTSIDE RECORDS SUMMARY | 2025-04-21 08:17 | XMS_ITS | Clinical Summary ---
Author Organization [facility] Address [address] [place] [address] Phone Care Team Providers Care Cook Fish And Chips Name Role Phone Owen Kee Primary Care Provider [phone] Encounters Date Type Department Care Team Description 03/18/2025 9:53 AM CDT - 03/18/2025 11:59 PM CDT [facility] [place] [id number] Seun La PAC Discharge Disposition: Discharged to home or Selfcare 03/18/2025 Travel 03/18/2025 Transcribe Orders [facility] Admitting 1 [place] [id number] Seun La PAC Impingement syndrome of left shoulder (Primary Dx) from Last 3 Months Social History Tobacco Use Types Packs/Day Years Used Date Smoking Tobacco: Never Assessed Comments Unknown Sex and Gender Information Value Date Recorded Sex Assigned at Not on file Legal Sex Female 9:37 AM CDT Gender Identity Not on file Sexual Orientation Not on file Plan of Treatment Health Maintenance Due Date Last Done Comments Hepatitis C Virus (HCV) Screening 1960 Mammogram 1960 Pap Smear 1981 Cervical Cancer Screening (CCS) 1990 HPV/Cotest 1990 Hepatitis B Immunization (2 of 3 - 19+ 3-dose series) 05/01/2005 04/03/2005 Cologuard 2005 Colonoscopy 2005 Colorectal Cancer Screening 2005 Immunochemical Fecal Occult Blood 2005 Influenza Immunization (#1) 2025 02/0 11/2024, 04/27/2024, 08/04/2023, Additional history exists Zoster Immunization Completed 01/14/2022, TdaP Immunization Completed 03/17/2022 Respiratory Syncytial Virus (RSV) Immunization (Adult) Completed 04/25/2023 Pneumococcal Immunization (50+ years) Completed 04/27/2024, 04/25/2023 SARS-COV-2 Immunization Completed 04/27/20 24, 04/25/2023, 08/02/2022, Additional history exists Human Papillomavirus (HPV) Immunization Aged Out No longer eligible based on patient's age to complete this topic Meningococcal Immunization (ACWY) Aged Out No longer eligible based on patient's age to complete this topic Rotavirus Immunization Aged Out No lo nger eligible based on patient's age to complete this topic Procedures Procedure Name Priority Date/Time Associated Diagnosis Comments MRI LEFT SHOULDER WO CONTRAST Routine 03/18/2025 10:36 AM CDT Impingement syndrome of left shoulder from Last 3 Months Results * MRI LEFT SHOULDER WO CONTRAST (03/18/2025 10:36 AM CDT) Anatomical Region Laterality Modality UPPER EXTREMITY, shoulder Left Magnet ic Resonance 03/20/2025 11:2 6 AM CDT Impressions 03/20/2025 11:28 AM CDT IMPRESSION: 1. There is fairly moderate to severe tendinosis of the lateral supraspinatus and anterior infraspinatus with higher grade interstitial tearing of the more posterior aspect of the supraspinatus along the footplate. Mild interstitial tearing of the supraspinatus. 2. Mild tendinosis superolateral subscapularis. 3. There is tendinosis of the long head of the biceps tendon in the rotator interval. 4. Degenerative signal superior labrum without a discrete tear. 5. Moderate to severe osteoarthritis AC joint. 6. Mild chondrosis glenohumeral joint. 7. Moderate joint effusion. 8. Trace fluid subacromial subdeltoid bursa. Narrative 03/20/2025 11:28 AM CDT EXAM DESCRIPTION: MRI LEFT SHOULDER WO CONTRAST REASON FOR STUDY: Patient complains of left shoulder pain. Left shoulder pain w/limited rom x 5 weeks. TECHNIQUE: Multiplanar, multisequence MRI of the left shoulder was performed without contrast. COMPARISON: No prior. FINDINGS: Rotator Cuff: There is fairly moderate to severe tendinosis of the lateral supraspinatus and anterior infraspinatus with higher grade interstitial tearing of the more posterior aspect of the supraspinatus along the footplate. Mild interstitial tearing of the supraspinatus. Mild tendinosis superolateral subscapularis. Teres minor demonstrates no tendinopathy. Overall, there is normal muscle bulk and signal of rotator musculature itself. Biceps Tendon: The long head of the biceps tendon appears normal in the bicipital groove. There is tendinosis in the rotator interval. Motion degrades imaging. Labrum: Degenerative signal superior labrum without a discrete tear. Acromion and AC Joint: The coracoacromial and coracoclavicular ligaments are intact. Moderate to severe osteoarthritis of the AC joint. Type 2 acromion. Glenohumeral Articulation: Mild chondrosis. Bones: No acute fracture or suspicious marrow infiltration. Joint and bursae: Moderate fluid is seen of the glenohumeral joint. Trace fluid subacromial subdeltoid bursa. Soft Tissues: The scapular notch, and quadrilateral space are unremarkable. There is no axillary lymphadenopathy. THIS IS AN ELECTRONICALLY VERIFIED FINAL REPORT 03/20/2025 11:26 AM - Electronically signed by Deondre COON: JAYMIE Report ID: [id number] Reading Location: [id number] Procedure Note Deondre Templeton MD - 03/20/2025 EXAM DESCRIPTION: MRI LEFT SHOULDER WO CONTRAST REASON FOR STUDY: Patient complains of left shoulder pain. Left shoulder pain w/limited rom x 5 weeks. TECHNIQUE: Multiplanar, multisequence MRI of the left shoulder was performed without contrast. COMPARISON: No prior. FINDINGS: Rotator Cuff: There is fairly moderate to severe tendinosis of the lateral supraspinatus and anterior infraspinatus with higher grade interstitial tearing of the more posterior aspect of the supraspinatus along the footplate. Mild interstitial tearing of the supraspinatus. Mild tendinosis superolateral subscapularis. Teres minor demonstrates no tendinopathy. Overall, there is normal muscle bulk and signal of rotator musculature itself. Biceps Tendon: The long head of the biceps tendon appears normal in the bicipital groove. There is tendinosis in the rotator interval. Motion degrades imaging. Labrum: Degenerative signal superior labrum without a discrete tear. Acromion and AC Joint: The coracoacromial and coracoclavicular ligaments are intact. Moderate to severe osteoarthritis of the AC joint. Type 2 acromion. Glenohumeral Articulation: Mild chondrosis. Bones: No acute fracture or suspicious marrow infiltration. Joint and bursae: Moderate fluid is seen of the glenohumeral joint. Trace fluid subacromial subdeltoid bursa. Soft Tissues: The scapular notch, and quadrilateral space are unremarkable. There is no axillary lymphadenopathy. THIS IS AN ELECTRONICALLY VERIFIED FINAL REPORT 03/20/2025 11:26 AM - Electronically signed by Deondre Templeton M.D. MJ: JAYMIE Report ID: [id number] Reading Location: [place] [address] IMPRESSION: 1. There is fairly moderate to severe tendinosis of the lateral supraspinatus and anterior infraspinatus with higher grade interstitial tearing of the more posterior aspect of the supraspinatus along the footplate. Mild interstitial tearing of the supraspinatus. 2. Mild tendinosis superolateral subscapularis. 3. There is tendinosis of the long head of the biceps tendon in the rotator interval. 4. Degenerative signal superior labrum without a discrete tear. 5. Moderate to severe osteoarthritis AC joint. 6. Mild chondrosis glenohumeral joint. 7. Moderate joint effusion. 8. Trace fluid subacromial subdeltoid bursa. us Seun La PAC IMG MR ORDERABLES Final Result from Last 3 Months Insurance * Guarantor: Rebecca Farooq Account Type Relation to Patient Date of Phone Billing Address Personal/Family Self 1960 [address] [place] [address] MEDICARE C [facility] MEDICAID [place] Care Teams Cook Fish And Chips Relationship Specialty Start Date End Date Owen Kee PAC [address] [place] [address] PCP - General Physician Travertine Installer 03/18/25
--- OUTSIDE RECORDS SUMMARY | 2025-04-21 08:17 | XMS_ITS | Patient Health Record ---
Author Organization [facility] Address [address] [employer] [address] Care Team Providers Care Medical Van Driver Name Role Phone Bipin Daniel Unavailable [phone] Reason For Referral No Information Medications Medication SIG (Take, Route, Frequency, Duration) Notes Start Date End Date Status Losartan Potassium 100 MG TAKE 1 TABLET BY MOUTH DAILY; Duration: 90 Active amLODIPine Besylate 5 MG 1 tablet Orally Once a day; Duration: 90 day(s) 12/28/2024 Active Social History Sex Assigned At : Social History Observation Description Sex Assigned At Female Problems Problem Type SNOMED Code ICD Code Onset Dates Problem Status W/U Status Risk Notes Problem Type II diabetes mellitus without complication (198688087) Type 2 diabetes mellitus without complications (E11.9) Active confirmed Problem Renal osteodystrophy (12484317) Renal osteodystrophy (N25.0) Active confirmed Problem Secondary hyperparathyroidism of renal origin (16100821) Secondary hyperparathyroidism of renal origin (N25.81) Active confirmed Problem Acquired renal cysti c disease (601213010) Cyst of kidney, acquired (N28.1) Active confirmed Problem Proteinuria (84150016) Proteinuria, unspecified (R80.9) Active confirmed Problem Tobacco use (597278234) Tobacco use (Z72.0) Active confirmed Problem Essential hypertension (25309711) Essential hypertension (I10) Active confirmed Problem Chronic kidney disease stage 3A (disorder) (341078619) Chronic kidney disease, stage 3a (N18.31) Active confirmed Encounters Encounter Location Date Provider Diagnosis [facility] [address] [facility] [address] [place] [address] 06/10/2024 Daniel Voss Chronic kidney disea se, stage 1 N18.1 ; Type 2 diabetes mellitus without complications E11.9 ; Essential hypertension I10 and Cyst of kidney, acquired N28.1 [facility] [address] [address] [employer] [place] [address] 07/01/2024 Daniel Voss Chronic kidney disea se, stage 2 (mild) N18.2 ; Type 2 diabetes mellitus without complications E11.9 ; Essential hypertension I10 and Cyst of kidney, acquired N28.1 [facility] [address] [address] 08/12/2024 Daniel Voss Chronic kidney disea se, stage 2 (mild) N18.2 ; Essential hypertension I10 ; Cyst of kidney, acquired N28.1 ; Renal osteodystrophy N25.0 ; Secondary hyperparathyroidism of renal origin N25.81 and Proteinuria, unspecified R80.9 [facility] [address] [place] [address] 09/23/2024 Daniel Voss Chronic kidney disea se, stage 2 (mild) N18.2 ; Type 2 diabetes mellitus without complications E11.9 ; Essential hypertension I10 ; Cyst of kidney, acquired N28.1 ; Renal osteodystrophy N25.0 and Secondary hyperparathyroidism of renal origin N25.81 [facility] [address] [place] [address] 11/02/2024 Daniel Voss Chronic kidney disea se, stage 2 (mild) N18.2 ; Type 2 diabetes mellitus without complications E11.9 ; Essential hypertension I10 ; Cyst of kidney, acquired N28.1 ; Renal osteodystrophy N25.0 ; Secondary hyperparathyroidism of renal origin N25.81 ; Tobacco use Z72.0 and Proteinuria, unspecified R80.9 [facility] [address] [address] 12/28/2024 Daniel Voss Chronic kidney disea se, stage 2 (mild) N18.2 ; Type 2 diabetes mellitus without complications E11.9 ; Essential hypertension I10 ; Cyst of kidney, acquired N28.1 ; Renal osteodystrophy N25.0 ; Secondary hyperparathyroidism of renal origin N25.81 ; Tobacco use Z72.0 and Proteinuria, unspecified R80.9 [facility] [address] [address] 03/08/2025 Daniel Voss Chronic kidney disea se, stage 3a N18.31 ; Type 2 diabetes mellitus without complications E11.9 ; Essential hypertension I10 ; Cyst of kidney, acquired N28.1 ; Renal osteodystrophy N25.0 ; Secondary hyperparathyroidism of renal origin N25.81 ; Tobacco use Z72.0 and Proteinuria, unspecified R80.9 [facility] [address] [address] 09/26/2024 Daniel Voss [facility] [address] [address] 11/02/2024 Daniel Voss [facility] [address] [address] 12/28/2024 Daniel Voss Assessments Encounter Date Diagnosis (ICD Code) Assessment [...] stage 2 (mild) (ICD-10 - N18.2) 12/28/2024 Chronic kidney disea se, stage 2 (mild) (ICD-10 - N18.2) 03/08/2025 Chronic kidney disea se, stage 3a (ICD-10 - N18.31) 12/28/2024 Type 2 diabetes mellitus without complications (ICD-10 - E11.9) 03/08/2025 Type 2 diabetes mellitus without complications (ICD-10 - E11.9) 11/02/2024 Type 2 diabetes mellitus without complications [...] 11/02/2024 Essential hypertensi on (ICD-10 - I10) 03/08/2025 Essential hypertensi on (ICD-10 - I10) 12/28/2024 Essential hypertensi on (ICD-10 - I10) 03/08/2025 Cyst of kidney, acquired (ICD-10 - N28.1) 11/02/2024 Cyst of kidney, acquired (ICD-10 - N28.1) 12/28/2024 Cyst of kidney, acquired (ICD-10 - N28.1) 09/23/2024 Cyst of kidney, acquired (ICD-10 - N28.1) 08/12/2024 Secondary hyperparathyroidism of renal origin (ICD-10 - N25.81) 07/01/2024 Cyst of kidney, acquired (ICD-10 - N28.1) 09/23/2024 Renal osteodystrophy (ICD-10 - N25.0) 08/12/2024 Proteinuria, unspecified (ICD-10 - R80.9) 12/28/2024 Renal osteodystrophy (ICD-10 - N25.0) 03/08/2025 Renal osteodystrophy (ICD-10 - N25.0) 11/02/2024 Renal osteodystrophy (ICD-10 - N25.0) 11/02/2024 Secondary hyperparathyroidism of renal origin (ICD-10 - N25.81) 03/08/2025 Secondary hyperparathyroidism of renal origin (ICD-10 - N25.81) 12/28/2024 Secondary hyperparathyroidism of renal origin (ICD-10 - N25.81) 09/23/2024 Secondary hyperparathyroidism of renal origin (ICD-10 - N25.81) 12/28/2024 Tobacco use (ICD-10 - Z72.0) 11/02/2024 Tobacco use (ICD-10 - Z72.0) 03/08/2025 Tobacco use (ICD-10 - Z72.0) 03/08/2025 Proteinuria, unspecified (ICD-10 - R80.9) 11/02/2024 Proteinuria, unspecified (ICD-10 - R80.9) 12/28/2024 Proteinuria, unspecified (ICD-10 - R80.9) Plan Of Treatment Next Appt Details Provider Name:Daniel Voss , 06/07/2025 02:30:00 PM, [address] [facility], [facility] [address], [place], [address],
== END 2025-04-21 08:13 | disposition home or self-care (01) ==
LOC: ANHFOHIMG 08:13
PROVIDERS: PCP Physician Assistant Medical; Visit Provider Physician Assistant Medical
DX: Z12.31 Encounter for screening mammogram for malignant neoplasm of breast (principal)
CPT/HCPCS: 77063; 77067

== ENCOUNTER 2025-04-21 08:44 | Outpatient (CLI) | payer MEDICARE, MEDICAID, SELFPAY ==
--- OUTSIDE RECORDS SUMMARY | 2025-04-21 08:52 | XMS_ITS | Clinical Summary ---
Author Organization [facility] Address [address] [place] [address] Phone Care Team Providers Care Nurse Wound Care Name Role Phone Owen Kee Primary Care Provider +1 [phone] Encounters Date Type Department Care Team Description 03/18/2025 9:53 AM CDT - 03/18/2025 11:59 PM CDT [facility] [place] [phone] Seun La PAC Discharge Disposition: Discharged to home or Selfcare 03/18/2025 Travel 03/18/2025 [facility] 1 [place] [phone] Seun La PAC Impingement syndrome of left [...] signed by Deondre COON: JAYMIE Report ID: [id number] Reading Location: [id number] Procedure Note Deondre Templeton MD - 03/20/2025 [...] Deondre Templeton M.D. MJ: JAYMIE Report ID: [id number] Reading Location: [place] [address] IMPRESSION: 1. There is fairly moderate to [...] Self 1960 [address] [place] [address] MEDICARE C [facility] [place]ICAID [place] Care Teams Nurse Wound Care Relationship Specialty Start Date End Date Owen Kee PAC [address] [place] [address] PCP - General Physician Farmworker [employer] 03/18/25
[2025-04-21 09:27] LABS: Hematocrit 46.4 % (37.0-47.0); Hemoglobin 14.3 g/dL (12.0-15.0); Immature Granulocyte Percent A 0.3 % (0-0.5); Lymphocytes Absolute Auto 2.58 K/mm3 (0.9-3.2); Mean Corpuscular HGB Conc 30.8 g/dl (32-36); Mean Corpuscular Hemoglobin 27.1 pg (26-34); Mean Corpuscular Volume 87.9 fl (80-100); Nucleated Red Blood Cells Absolute Auto 0.000 K/mm3 (0.0-0.012); Nucleated Red Blood Cells Perc 0.0 % (0.0-0.2); Platelet Count Result 270 k/mm3 (150-375); Red Blood Count 5.28 M/mm3 (4.2-5.4); White Blood Count 6.0 K/mm3 (4.5-10.0)
[2025-04-21 09:39] LABS: Hemoglobin A1C 5.9 % (<5.7)
[2025-04-21 09:41] LABS: Add Urine Microscopic? YES; Appearance Urine Clear (Clear); Glucose Urine UA Negative (Negative); Leukocyte Esterase Ur Negative LEU/UL (Negative); Nitrate Urine Negative (Negative); Non Pathogenic Casts 0-2; Specific Grav Ur 1.016 (1.001-1.035)
[2025-04-21 09:48] LABS: Alanine Aminotransferase 24 U/L (6-35); Albumin Level 4.4 g/dL (3.5-5.1); Alkaline Phosphatase 61 U/L (38-126); Anion Gap 5 mmol/L (4-12); Aspartate Amino Transferase 26 U/L (14-36); Bilirubin,Total 0.6 mg/dL (0.2-1.3); Blood Urea Nitrogen 9 mg/dL (7-17); Calcium 10.3 mg/dL (8.4-10.2); Carbon Dioxide 32 mmol/L (22-30); Chloride 100 mmol/L (98-107); Estimated Glomerular Filt Rate > 60; Glucose 83 mg/dL (65-110); Potassium 4.0 mmol/L (3.4-5.0); Sodium 137 mmol/L (137-145); Total Protein 7.7 g/dL (6.3-8.2); Uric Acid 4.0 mg/dL (2.5-7.5)
[2025-04-21 09:50] LABS: Total Protein Urine Random 20 mg/dL; Ur Ttl Prot Creatinine Ratio 0.11 mg/mg (0-0.20)
[2025-04-21 09:50] LABS: MALB Creatinine Ratio 59.2 mg/g (0-30)
[2025-04-21 10:12] LABS: Parathyroid Intact 57.4 pg/mL (14.5-75.2)
[2025-04-21 10:23] LABS: Thyroid Stimulating Hormone 0.811 uIU/mL (0.465-4.680)
[2025-04-22 11:08] LABS: Chloride, Urine 52 mmol/L (Not Estab.)
[2025-04-28 01:07] LABS: Osmolality, Urine 452 mOsmol/kg (.)
== END 2025-04-21 08:45 | disposition home or self-care (01) ==
PROVIDERS: PCP Physician Assistant Medical; Visit Provider Specialist
DX: R94.6 Abnormal results of thyroid function studies (principal); D63.1 Anemia in chronic kidney disease; N18.30 Chronic kidney disease, stage 3 unspecified; R73.09 Other abnormal glucose; E21.3 Hyperparathyroidism, unspecified; E55.9 Vitamin D deficiency, unspecified; R82.90 Unspecified abnormal findings in urine
CPT/HCPCS: 36415; 80053; 81001; 82043; 82306; 82436; 82570; 83036; 83935; 83970; 84133; 84156; 84300; 84443; 84550; 85025

== ENCOUNTER 2025-04-27 12:41 | Outpatient (CLI) | payer MEDICARE, MEDICAID, SELFPAY ==
--- OUTSIDE RECORDS SUMMARY | 2024-09-16 07:45 | XMS_ITS ---
Author Organization [facility] Address 1400 [facility] 61 [facility] [address] [place] [address] Care Team Providers Care Product Architect Name Role Phone Voss Daniel Unavailable [phone] Social History Sex Assigned At : Social History Observation Description Sex Assigned At Female Encounters Encounter Location Date Provider Diagnosis [place] [facility] 2043 [facility] 15 [place] [address] 09/16/2024 Daniel Voss Plan Of Treatment Next Appt Details Provider Name:Daniel Voss , 06/07/2025 02:30:00 PM, 2043 [facility], [facility] 15, [place], [address], Progress Notes * ANTONIO LALAOB:1960 ( 64 yo F)Acc No.[id number]:09/16/2024 Progress Notes Patient: BRADLY BARR Provider: Thea HARRISON MD, Iram.Pranav.C.P, F.A.S.N. :1960 A ge:63 Y S ex:Female Date:09/16/2024 Address:[id number] Subjective: * Chief Complaints: * * Medical History: Objective: * Vitals: Assessment: Plan: * Treatment: * Billing Information: * Visit Code: * Procedure Codes: * Electronic signature of Tray Voss MD on 04/27/2025 at 12:55 PM CDT Sign off status: Pending * Provider: Thea HARRISON MD, Iram.Pranav.C.P, F.A.S.N. Date: 0 09/16/2024 Generated for Printing/Faxing/eTransmitting on: 1 12:55 PM CDT
--- OUTSIDE RECORDS SUMMARY | 2024-09-23 08:30 | XMS_ITS ---
Author Organization [facility] Address [address] [place] [address] Care Team Providers Care Museum Tour Guide Name Role Phone Voss Daniel Unavailable [phone] Social History Sex Assigned At : Social History Observation Description Sex Assigned At Female Encounters Encounter Location Date Provider Diagnosis [place] [facility] 2043 [facility] [address] [place] [address] 09/23/2024 Daniel Voss Chronic kidney disea se, [...] Name:Daniel Voss , 06/07/2025 02:30:00 PM, 2043 [facility], [address], [place], [address], Progress Notes * SPIKE PATTYBATOOLOB:1960 ( 64 yo F)Acc No.[id number]:09/23/2024 Progress Notes Patient: BRADLY BARR Provider: Thea HARRISON MD, Mikaela, F.A.S.N. :1960 A ge:63 Y S ex:Female Date:09/23/2024 Address:[address] [place], [place] [id number] Subjective: * Chief Complaints: * * Medical [...] Treatment: * Billing Information: * Visit Code: 87423 Office Visit, Est Pt., Level 4. * Procedure Codes: * Electronic signature of Tray Voss MD on 04/27/2025 at 12:55 PM CDT Sign off status: Pending * Provider: Thea HARRISON MD, Mikaela, F.A.S.N. Date: 0 09/23/2024 Generated for Printing/Faxing/eTransmitting on: 12:55 PM CDT
--- OUTSIDE RECORDS SUMMARY | 2024-11-02 10:15 | XMS_ITS ---
Author Organization [facility] Office Address [address] [place] [address] Care Team Providers Care Baby Registry Sales Consultant Name Role Phone Daniel Voss Unavailable [phone] Social History Sex Assigned At : Social History Observation Description Sex Assigned At Female Problems Problem Type SNOMED Code ICD Code Onset Dates Problem Status W/U Status Risk Notes Problem Tobacco use (030682061) Tobacco use (Z72.0) Active confirmed Problem Proteinuria (33761265) Proteinuria, unspecified (R80.9) Active confirmed Encounters Encounter Location Date Provider Diagnosis [place] [facility] [address] [facility] [address] [place] [address] 11/02/2024 Daniel Voss Chronic kidney disea se, [...] 02:30:00 PM, [address], [address], [place], [address], Progress Notes * ANTONIO LALAOB:1960 ( 64 yo F)Acc No.[id number]:11/02/2024 Progress Notes Patient: BRADLY BARR Provider: Thea HARRISON MD, F.Pranav.C.P, F.A.S.N. :1960 A ge:63 Y S ex:Female Date:11/02/2024 Address:[address] [facility] [address] [place], [place] [id number] Subjective: * Chief Complaints: * * Medical [...] Treatment: * Billing Information: * Visit Code: 04434 Office Visit, Est Pt., Level 4. * Procedure Codes: * Electronic signature of Tray Voss MD on 04/27/2025 at 12:55 PM CDT Sign off status: Pending * Provider: Thea HARRISON MD, F.Pranav.C.P, F.A.S.N. Date: 0 11/02/2024 Generated for Printing/Faxing/eTransmitting on: 1 12:55 PM CDT
--- OUTSIDE RECORDS SUMMARY | 2024-12-28 10:15 | XMS_ITS ---
Author Organization [facility] Address [address] [place] [address] Care Team Providers Care Plastic Production Machine Setter Name Role Phone Bipin Daniel Unavailable [phone] Social History Sex Assigned At : Social History Observation Description Sex Assigned At Female Encounters Encounter Location Date Provider Diagnosis [place] [facility] [address] [facility] 15 [place] [address] 12/28/2024 Daniel Voss Chronic kidney disea se, [...] Name:Daniel Voss , 06/07/2025 02:30:00 PM, [address] [facility], [address], [place], [address], Progress Notes * ANTONIO LALAOB:1960 ( 64 yo F)Acc No.[id number]:12/28/2024 Progress Notes Patient: BRADLY BARR Provider: Thea HARRISON MD, Iram.Pranav.C.P, F.A.S.N. :1960 A ge:64 Y S ex:Female Date:12/28/2024 Address:[address] [place], [place] [id number] Subjective: * Chief Complaints: * * Medical [...] Treatment: * Billing Information: * Visit Code: 69100 Office Visit, Est Pt., Level 4. * Procedure Codes: * Electronic signature of Tray Voss MD on 04/27/2025 at 12:55 PM CDT Sign off status: Pending * Provider: Thea HARRISON MD, F.Pranav.C.P, F.A.S.N. Date: 0 12/28/2024 Generated for Printing/Faxing/eTransmitting on: 1 12:55 PM CDT
--- OUTSIDE RECORDS SUMMARY | 2025-03-08 09:45 | XMS_ITS ---
Author Organization [facility] Address [address] [place] [address] Care Team Providers Care Campus Coordinator Name Role Phone Daniel Voss Unavailable [phone] Social History Sex Assigned At : Social History Observation Description Sex Assigned At Female Problems Problem Type SNOMED Code ICD Code Onset Dates Problem Status W/U Status Risk Notes Problem Chronic kidney disease stage 3A (disorder) (527763406) Chronic kidney disease, stage 3a (N18.31) Active confirmed Encounters Encounter Location Date Provider Diagnosis [place] [facility] 2043 [facility] 15 [place] [address] 03/08/2025 Daniel Voss Chronic kidney disea se, [...] 02:30:00 PM, [address] [facility], [address], [place], [address], Progress Notes * ANTONIO LALAOB:1960 ( 64 yo F)Acc No.[id number]:03/08/2025 Progress Notes Patient: BRADLY BARR Provider: Thea HARRISON MD, F.A.C.P, F.A.S.N. :1960 A ge:64 Y S ex:Female Date:03/08/2025 Address:[address] [place] [address] [id number] Subjective: * Chief Complaints: Objective: Assessment: * [...] Plan: * Billing Information: * Visit Code: 40753 Office Visit, Est Pt., Level 4. * Procedure Codes: * Electronic signature of Tray Voss MD on 04/27/2025 at 12:55 PM CDT Sign off status: Pending * Provider: Thea HARRISON MD, F.A.C.P, F.A.S.N. Date: 0 03/08/2025 Generated for Printing/Faxing/eTransmitting on: 1 12:55 PM CDT
--- OUTSIDE RECORDS SUMMARY | 2025-04-27 12:56 | XMS_ITS | Patient Health Record ---
Author Organization [facility] Address [address] [place] [address] Care Team Providers Care State Highway Police Officer Name Role Phone Daniel Voss Unavailable [phone] Reason For Referral No Information Medications Medication [...] Problem Type II diabetes mellitus without complication (542438869) Type 2 diabetes mellitus without complications (E11.9) Active confirmed Problem Renal osteodystrophy (45806720) Renal osteodystrophy (N25.0) Active confirmed Problem Secondary hyperparathyroidism of renal origin (91483917) Secondary hyperparathyroidism of renal origin (N25.81) Active confirmed Problem Acquired renal cysti c disease (812040038) Cyst of kidney, acquired (N28.1) Active confirmed Problem Proteinuria (96818879) Proteinuria, unspecified (R80.9) Active confirmed Problem Tobacco use (966742487) Tobacco use (Z72.0) Active confirmed Problem Essential hypertension (89347426) Essential hypertension (I10) Active confirmed Problem Chronic kidney disease stage 3A (disorder) (655272849) Chronic kidney disease, stage 3a (N18.31) Active confirmed Encounters Encounter Location Date Provider Diagnosis [facility] [address] [facility] [address] [place] [address] 06/10/2024 Daniel Voss Chronic kidney disea se, stage 1 N18.1 ; Type 2 diabetes mellitus without complications E11.9 ; Essential hypertension I10 and Cyst of kidney, acquired N28.1 [facility] [address] [place] [address] 07/01/2024 Daniel Voss Chronic kidney disea se, stage 2 (mild) N18.2 ; Type 2 diabetes mellitus without complications E11.9 ; Essential hypertension I10 and Cyst of kidney, acquired N28.1 [facility] [address] [address] 08/12/2024 Daniel Voss Chronic kidney disea se, stage 2 (mild) N18.2 ; Essential hypertension I10 ; Cyst of kidney, acquired N28.1 ; Renal osteodystrophy N25.0 ; Secondary hyperparathyroidism of renal origin N25.81 and Proteinuria, unspecified R80.9 [facility] [address] [place] [address] 09/23/2024 Daniel Voss Chronic kidney disea se, stage 2 (mild) N18.2 ; Type 2 diabetes mellitus without complications E11.9 ; Essential hypertension I10 ; Cyst of kidney, acquired N28.1 ; Renal osteodystrophy N25.0 and Secondary hyperparathyroidism of renal origin N25.81 [facility] [address] [place] [address] 11/02/2024 Daniel Voss Chronic kidney disea se, stage 2 (mild) N18.2 ; Type 2 diabetes mellitus without complications E11.9 ; Essential hypertension I10 ; Cyst of kidney, acquired N28.1 ; Renal osteodystrophy N25.0 ; Secondary hyperparathyroidism of renal origin N25.81 ; Tobacco use Z72.0 and Proteinuria, unspecified R80.9 [facility] [address] [address] 12/28/2024 Daniel Voss Chronic kidney disea se, stage 2 (mild) N18.2 ; Type 2 diabetes mellitus without complications E11.9 ; Essential hypertension I10 ; Cyst of kidney, acquired N28.1 ; Renal osteodystrophy N25.0 ; Secondary hyperparathyroidism of renal origin N25.81 ; Tobacco use Z72.0 and Proteinuria, unspecified R80.9 [facility] [address] [address] 03/08/2025 Daniel Voss Chronic kidney disea se, stage 3a N18.31 ; Type 2 diabetes mellitus without complications E11.9 ; Essential hypertension I10 ; Cyst of kidney, acquired N28.1 ; Renal osteodystrophy N25.0 ; Secondary hyperparathyroidism of renal origin N25.81 ; Tobacco use Z72.0 and Proteinuria, unspecified R80.9 [facility] [address] [address] 09/26/2024 Daniel Voss [facility] [address] [address] 11/02/2024 Daniel Voss [facility] [address] [address] 12/28/2024 Daniel Voss Assessments Encounter Date Diagnosis [...] Name:Daniel Voss , 06/07/2025 02:30:00 PM, 20[address] [facility], [facility], [place], [address],
--- OUTSIDE RECORDS SUMMARY | 2025-04-27 12:56 | XMS_ITS | Clinical Summary ---
Author Organization [facility] Address [address] [place] [address] Phone Care Team Providers Care Claim Technician Name Role Phone Owen Kee Primary Care Provider [phone] [phone] Encounters Date Type Department Care Team Description 03/18/2025 9:53 AM CDT - 03/18/2025 11:59 PM CDT [facility] [place] [phone] Seun La PAC Discharge Disposition: Discharged to home or Selfcare 03/18/2025 Travel 03/18/2025 [facility] 1 [place] [phone] Seun La PAC Impingement syndrome of left [...] signed by Deondre COON: JAYMIE Report ID: [id number] Reading Location: [id number] Procedure Note Deondre Templeton MD - 03/20/2025 [...] Deondre Templeton M.D. MJ: JAYMIE Report ID: [id number] Reading Location: [place] [address] IMPRESSION: 1. There is fairly moderate to [...] Self 1960 [address] [place] [address] MEDICARE C [facility] MEDICAID [place] Care Teams Claim Technician Relationship Specialty Start Date End Date Owen Kee PAC [address] [place] [address] PCP - General Physician Cabin Service Agent 03/18/25
--- NOTE | 2025-04-27 13:10 | ECG_ITS ---
Test Date: 2025-04-27 13:19:22 Measurements Intervals [place] Rate: 77 P: 66 MA: 165 QRS: -4 QRSD: 89 T: 27 QT: 372 QTc: 422 Interpretive Statements SINUS RHYTHM WITH OCCASIONAL SUPRAVENTRICULAR PREMATURE COMPLEXES POSSIBLE LEFT ATRIAL ENLARGEMENT DELAYED PRECORDIAL R/S TRANSITION BORDERLINE ST-T WAVE ABNORMALITY- INF/LAT LEADS BORDERLINE ECG No previous ECG available for comparison Electronically Signed On 04-27-2025 13:39:00 CDT by Sharif Nicholas D.O.
[2025-04-27 14:30] LABS: Anion Gap 5 mmol/L (4-12); Blood Urea Nitrogen 9 mg/dL (7-17); Calcium 10.4 mg/dL (8.4-10.2); Carbon Dioxide 33 mmol/L (22-30); Chloride 101 mmol/L (98-107); Estimated Glomerular Filt Rate > 60; Glucose 41 mg/dL (65-110); Potassium 3.5 mmol/L (3.4-5.0); Sodium 139 mmol/L (137-145)
== END 2025-04-27 12:42 | disposition home or self-care (01) ==
LOC: ANHLAB 12:51
PROVIDERS: PCP Physician Assistant Medical; Visit Provider Orthopaedic Surgery
DX: Z01.818 Encounter for other preprocedural examination (principal); R94.31 Abnormal electrocardiogram [ECG] [EKG]
CPT/HCPCS: 36415; 80048; 93005

== ENCOUNTER 2025-05-31 08:28 | Outpatient (CLI) | payer MEDICARE, MEDICAID, SELFPAY ==
--- OUTSIDE RECORDS SUMMARY | 2024-06-10 09:15 | XMS_ITS ---
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 Social History Sex Assigned At : Social History Observation Description Sex Assigned At Female Problems Problem Type SNOMED Code ICD Code Onset Dates Problem Status W/U Status Risk Notes Problem Type II diabetes mellitus without complication (954044449) Type 2 diabetes mellitus without complications (E11.9) Active confirmed Problem Essential hypertension (23492113) Essential hypertension (I10) Active confirmed Problem Acquired renal cystic disease (634623053) Cyst of kidney, acquired (N28.1) Active confirmed Encounters Encounter Location Date Provider Diagnosis [place] [facility] [address] [facility] [address] [place] [address] 06/10/2024 Daniel Voss Chronic kidney disease, stage 1 N18.1 ; Type 2 diabetes mellitus without complications E11.9 ; Essential hypertension I10 and Cyst of kidney, acquired N28.1 Assessments Encounter Date Diagnosis (ICD Code) Assessment Notes Treatment Notes Treatment Clinical Notes Section Notes 06/10/2024 Chronic kidney disease, stage 1 (ICD-10 - N18.1) 06/10/2024 Type 2 diabetes mellitus without complications (ICD-10 - E11.9) 06/10/2024 Essential hypertension (ICD-10 - I10) 06/10/2024 Cyst of kidney, acquired (ICD-10 - N28.1) Plan Of Treatment Next Appt Details Provider Name:Daniel Bipin , 06/07/2025 02:30:00 PM, [address] [facility], [facility] [address], [place], [address], Progress Notes * ANTONIO LALAOB:1960 ( 64 yo F)Acc No.[id number]:06/10/2024 Progress Notes Patient: BRADLY BARR Provider: Thea HARRISON MD, F.Pranav.Steven.P, F.A.S.N. 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 * Medical History: Objective: * Vitals: Assessment: * Assessment: 1. C hronic kidney disease, stage 1 - N18.1 (Primary) 2 . T ype 2 diabetes mellitus without complications - E11.9 3 . E ssential hypertension - I10 ? 4 . C yst of kidney, acquired - N28.1 Plan: * Treatment: * Billing Information: * Visit Code: 70928 Office Visit, New Pt., Level 5. * Procedure Codes: * Electronic signature of Tray Voss MD on 05/31/2025 at 08:41 AM FINANCIAL PLANNER Sign off status: Pending * Provider: Thea HARRISON MD, F.Pranav.C.P, F.A.S.N. Date: 08/10/2023 Generated for Printing/Faxing/eTransmitting on: 07/31/2024 08:41 AM FINANCIAL PLANNER
--- OUTSIDE RECORDS SUMMARY | 2024-07-01 06:45 | XMS_ITS ---
Author Organization [facility] Office Address [address] [place] [address] Care Team Providers Care Mother Baby Rn Name Role Phone Mykel Vossjit Unavailable [phone] Social History Sex Assigned At : Social History Observation Description Sex Assigned At Female Encounters Encounter Location Date Provider Diagnosis [facility] [place] [facility] [address] [place] [address] 07/01/2024 Daniel Voss Chronic kidney disease, stage 2 (mild) N18.2 ; Type 2 diabetes mellitus without complications E11.9 ; Essential hypertension I10 and Cyst of kidney, acquired N28.1 Assessments Encounter Date Diagnosis (ICD Code) Assessment Notes Treatment Notes Treatment Clinical Notes Section Notes 07/01/2024 Chronic kidney disease, stage 2 (mild) (ICD-10 - N18.2) 07/01/2024 Type 2 diabetes mellitus without complications (ICD-10 - E11.9) 07/01/2024 Essential hypertension (ICD-10 - I10) 07/01/2024 Cyst of kidney, acquired (ICD-10 - N28.1) Plan Of Treatment Next Appt Details Provider Name:Daniel Bipin , 06/07/2025 02:30:00 PM, [address] [facility], [facility] [address], [place], [address], Progress Notes * ANTONIO LALAOB:1960 ( 64 yo F)Acc No.[id number]:07/01/2024 Progress Notes Patient: BRADLY BARR Provider: Thea HARRISON MD, F.A.C.P, F.A.S.N. :1960 A ge:63 Y S ex:Female Date:07/01/2024 Address:[address], [place], [place] Subjective: * Chief Complaints: * * Medical History: Objective: * Vitals: Assessment: * Assessment: 1. C hronic kidney disease, stage 2 (mild) - N18.2 2 . T ype 2 diabetes mellitus without complications - E11.9 3 . E ssential hypertension - I10 4 . C yst of kidney, acquired - N28.1 Plan: * Treatment: * Billing Information: * Visit Code: 15314 Office Visit, Est Pt., Level 4. * Procedure Codes: * Electronic signature of Tray Voss MD on 05/31/2025 at 08:40 AM ALMOND PAN FINISHER Sign off status: Pending * Provider: Thea HARRISON MD, F.A.C.P, F.A.S.N. Date: 09/01/2023 Generated for Printing/Faxing/eTransmitting on: 07/31/2024 08:40 AM ALMOND PAN FINISHER
--- OUTSIDE RECORDS SUMMARY | 2024-08-12 06:45 | XMS_ITS ---
Author Organization [facility] Office Address [address] [place] [address] Care Team Providers Care Mechanic Senior Name Role Phone Daniel Voss Unavailable [phone] Social History Sex Assigned At : Social History Observation Description Sex Assigned At Female Problems Problem Type SNOMED Code ICD Code Onset Dates Problem Status W/U Status Risk Notes Problem Renal osteodystrophy (46385249) Renal osteodystrophy (N25.0) Active confirmed Problem Secondary hyperparathyroidism of renal origin (86368023) Secondary hyperparathyroidism of renal origin (N25.81) Active confirmed Encounters Encounter Location Date Provider Diagnosis [place] [facility] [address] [facility] [address] [place] [address] 08/12/2024 Daniel Voss Chronic kidney disea se, stage 2 (mild) N18.2 ; Essential hypertension I10 ; Cyst of kidney, acquired N28.1 ; Renal osteodystrophy N25.0 ; Secondary hyperparathyroidism of renal origin N25.81 and Proteinuria, unspecified R80.9 Assessments Encounter Date Diagnosis (ICD Code) Assessment Notes Treatment Notes Treatment Clinical Notes Section Notes 08/12/2024 Chronic kidney disea se, stage 2 (mild) (ICD-10 - N18.2) 08/12/2024 Essential hypertensi on (ICD-10 - I10) 08/12/2024 Cyst of kidney, acquired (ICD-10 - N28.1) 08/12/2024 Renal osteodystrophy (ICD-10 - N25.0) 08/12/2024 Secondary hyperparathyroidism of renal origin (ICD-10 - N25.81) 08/12/2024 Proteinuria, unspecified (ICD-10 - R80.9) Plan Of Treatment Next Appt Details Provider Name:Daniel Voss , 06/07/2025 02:30:00 PM, [address] [facility], [address], [address], Progress Notes * ANTONIO LALAOB:1960 ( 64 yo F)Acc No.[id number]:08/12/2024 Progress Notes Patient: BRADLY BARR Provider: Thea HARRISON MD, Tari.P, F.A.S.N. :1960 A ge:63 Y S ex:Female Date:08/12/2024 Address:[address] [place], [place] [id number] Subjective: * Chief Complaints: * * Medical History: Objective: * Vitals: Assessment: * Assessment: 1. C hronic kidney disease, stage 2 (mild) - N18.2 (Primary) 2 . E ssential hypertension - I10 3 . C yst of kidney, acquired - N28.1 4 .?Renal osteodystrophy - N25.0 5 . S econdary hyperparathyroidism of renal origin - N25.81 6 . P roteinuria, unspecified - R80.9 Plan: * Treatment: * Billing Information: * Visit Code: 35712 Office Visit, Est Pt., Level 4. * Procedure Codes: * Electronic signature of Tray Voss MD on 05/31/2025 at 08:41 AM COLOR STRAINER Sign off status: Pending * Provider: Thea HARRISON MD, Iram.Rogelio.P, F.A.S.N. Date: 0 08/12/2024 Generated for Printing/Faxing/eTransmitting on: 07/31/2024 08:41 AM COLOR STRAINER
--- OUTSIDE RECORDS SUMMARY | 2024-09-16 06:45 | XMS_ITS ---
Author Organization [facility] Address [address] [facility] [address] [facility] [address] [place] [address] Care Team Providers Care Bed Manager Name Role Phone Voss Daniel Unavailable [phone] Social History Sex Assigned At : Social History Observation Description Sex Assigned At Female Encounters Encounter Location Date Provider Diagnosis [place] [facility] 2043 [facility] 15 [place] [address] 09/16/2024 Daniel Voss Plan Of Treatment Next Appt Details Provider Name:Daniel Voss , 06/07/2025 02:30:00 PM, 2043 [facility], [facility] 15, [place], [address], Progress Notes * ANTONIO LALAOB:1960 ( 64 yo F)Acc No.[id number]:09/16/2024 Progress Notes Patient: BRADLY BARR Provider: Thea HARRISON MD, Iram.Pranav.C.P, F.A.S.N. :1960 A ge:63 Y S ex:Female Date:09/16/2024 Address:[id number] Subjective: * Chief Complaints: * * Medical History: Objective: * Vitals: Assessment: Plan: * Treatment: * Billing Information: * Visit Code: * Procedure Codes: * Electronic signature of Tray Voss MD on 05/31/2025 at 08:40 AM DIVISIONAL MERCHANDISING MANAGER Sign off status: Pending * Provider: Thea HARRISON MD, Iram.Pranav.C.P, F.A.S.N. Date: 0 09/16/2024 Generated for Printing/Faxing/eTransmitting on: 07/31/2024 08:40 AM DIVISIONAL MERCHANDISING MANAGER
--- OUTSIDE RECORDS SUMMARY | 2024-09-23 07:30 | XMS_ITS ---
Author Organization [facility] Address [address] [place] [address] Care Team Providers Care Makeup Editor Name Role Phone Voss Daniel Unavailable [phone] Social History Sex Assigned At : Social History Observation Description Sex Assigned At Female Encounters Encounter Location Date Provider Diagnosis [place] [facility] [address]43 [facility] [address] [place] [address] 09/23/2024 Daniel Voss Chronic kidney disea se, stage 2 (mild) N18.2 ; Type 2 diabetes mellitus without complications E11.9 ; Essential hypertension I10 ; Cyst of kidney, acquired N28.1 ; Renal osteodystrophy N25.0 and Secondary hyperparathyroidism of renal origin N25.81 Assessments Encounter Date Diagnosis (ICD Code) Assessment Notes Treatment Notes Treatment Clinical Notes Section Notes 09/23/2024 Chronic kidney disea se, stage 2 (mild) (ICD-10 - N18.2) 09/23/2024 Type 2 diabetes mellitus without complications (ICD-10 - E11.9) 09/23/2024 Essential hypertensi on (ICD-10 - I10) 09/23/2024 Cyst of kidney, acquired (ICD-10 - N28.1) 09/23/2024 Renal osteodystrophy (ICD-10 - N25.0) 09/23/2024 Secondary hyperparathyroidism of renal origin (ICD-10 - N25.81) Plan Of Treatment Next Appt Details Provider Name:Daniel Voss , 06/07/2025 02:30:00 PM, 2043 [facility], [address], [place], [address], Progress Notes * SPIKE PATTYBATOOLOB:1960 ( 64 yo F)Acc No.[id number]:09/23/2024 Progress Notes Patient: BRADLY BARR Provider: Thea HARRISON MD, Mikaela, F.A.S.N. :1960 A ge:63 Y S ex:Female Date:09/23/2024 Address:[address] [place], [place] [id number] Subjective: * Chief Complaints: * * Medical History: Objective: * Vitals: Assessment: * Assessment: 1. C hronic kidney disease, stage 2 (mild) - N18.2 (Primary) 2 . T ype 2 diabetes mellitus without complications - E11.9 3 . E ssential hypertension - I10? 4. C yst of kidney, acquired - N28.1 5 . R enal osteodystrophy - N25.0 6 . S econdary hyperparathyroidism of renal origin - N25.81 ? Plan: * Treatment: * Billing Information: * Visit Code: 00716 Office Visit, Est Pt., Level 4. * Procedure Codes: * Electronic signature of Tray Voss MD on 05/31/2025 at 08:40 AM MEDICARE BILLER Sign off status: Pending * Provider: Thea HARRISON MD, Mikaela, F.A.S.N. Date: 0 09/23/2024 Generated for Printing/Faxing/eTransmitting on: 07/31/2024 08:40 AM MEDICARE BILLER
--- OUTSIDE RECORDS SUMMARY | 2024-11-02 09:15 | XMS_ITS ---
Author Organization [facility] Office Address [address] [place] [address] Care Team Providers Care Floor Supervisor Name Role Phone Bipin Daniel Unavailable [phone] Social History Sex Assigned At : Social History Observation Description Sex Assigned At Female Problems Problem Type SNOMED Code ICD Code Onset Dates Problem Status W/U Status Risk Notes Problem Tobacco use (250423530) Tobacco use (Z72.0) Active confirmed Problem Proteinuria (98212673) Proteinuria, unspecified (R80.9) Active confirmed Encounters Encounter Location Date Provider Diagnosis [place] [facility] 20[address] [facility] [address] [place] [address] 11/02/2024 Daniel Voss Chronic kidney disea se, stage 2 (mild) N18.2 ; Type 2 diabetes mellitus without complications E11.9 ; Essential hypertension I10 ; Cyst of kidney, acquired N28.1 ; Renal osteodystrophy N25.0 ; Secondary hyperparathyroidism of renal origin N25.81 ; Tobacco use Z72.0 and Proteinuria, unspecified R80.9 Assessments Encounter Date Diagnosis (ICD Code) Assessment Notes Treatment Notes Treatment Clinical Notes Section Notes 11/02/2024 Chronic kidney disea se, stage 2 (mild) (ICD-10 - N18.2) 11/02/2024 Type 2 diabetes mellitus without complications (ICD-10 - E11.9) 11/02/2024 Essential hypertensi on (ICD-10 - I10) 11/02/2024 Cyst of kidney, acquired (ICD-10 - N28.1) 11/02/2024 Renal osteodystrophy (ICD-10 - N25.0) 11/02/2024 Secondary hyperparathyroidism of renal origin (ICD-10 - N25.81) 11/02/2024 Tobacco use (ICD-10 - Z72.0) 11/02/2024 Proteinuria, unspecified (ICD-10 - R80.9) Plan Of Treatment Next Appt Details Provider Name:Daniel Voss , 06/07/2025 02:30:00 PM, [address], [address], [place], [address], Progress Notes * ANTONIO LALAOB:1960 ( 64 yo F)Acc No.[id number]:11/02/2024 Progress Notes Patient: BRADLY BARR Provider: Thea HARRISON MD, F.Pranav.C.P, F.A.S.N. :1960 A ge:63 Y S ex:Female Date:11/02/2024 Address:[address] [facility] [address] [place], [place] [id number] Subjective: * Chief Complaints: * * Medical [...] hyperparathyroidism of renal origin - N25.81 ? 7 . T obacco use - Z72.0 8 . P roteinuria, unspecified - R80.9 ? Plan: * Treatment: * Billing Information: * Visit Code: 89558 Office Visit, Est Pt., Level 4. * Procedure Codes: * Electronic signature of Tray Voss MD on 05/31/2025 at 08:40 AM OVERLOCK SLEEVE SETTER Sign off status: Pending * Provider: Thea HARRISON MD, F.Pranav.C.P, F.A.S.N. Date: 0 11/02/2024 Generated for Printing/Faxing/eTransmitting on: 07/31/2024 08:40 AM OVERLOCK SLEEVE SETTER
--- OUTSIDE RECORDS SUMMARY | 2024-12-28 09:15 | XMS_ITS ---
Author Organization [facility] Address [address] [place] [address] Care Team Providers Care Glassware Maker Demonstrator Name Role Phone Bipin Daniel Unavailable [phone] Social History Sex Assigned At : Social History Observation Description Sex Assigned At Female Encounters Encounter Location Date Provider Diagnosis [place] [facility] [address] [facility] 15 [place] [address] 12/28/2024 Daniel Voss Chronic kidney disea se, stage 2 (mild) N18.2 ; Type 2 diabetes mellitus without complications E11.9 ; Essential hypertension I10 ; Cyst of kidney, acquired N28.1 ; Renal osteodystrophy N25.0 ; Secondary hyperparathyroidism of renal origin N25.81 ; Tobacco use Z72.0 and Proteinuria, unspecified R80.9 Assessments Encounter Date Diagnosis (ICD Code) Assessment Notes Treatment Notes Treatment Clinical Notes Section Notes 12/28/2024 Chronic kidney disea se, stage 2 (mild) (ICD-10 - N18.2) 12/28/2024 Type 2 diabetes mellitus without complications (ICD-10 - E11.9) 12/28/2024 Essential hypertensi on (ICD-10 - I10) 12/28/2024 Cyst of kidney, acquired (ICD-10 - N28.1) 12/28/2024 Renal osteodystrophy (ICD-10 - N25.0) 12/28/2024 Secondary hyperparathyroidism of renal origin (ICD-10 - N25.81) 12/28/2024 Tobacco use (ICD-10 - Z72.0) 12/28/2024 Proteinuria, unspecified (ICD-10 - R80.9) Plan Of Treatment Next Appt Details Provider Name:Daniel Voss , 06/07/2025 02:30:00 PM, [address] [facility], [address], [place], [address], Progress Notes * ANTONIO LALAOB:1960 ( 64 yo F)Acc No.[id number]:12/28/2024 Progress Notes Patient: BRADLY BARR Provider: Thea HARRISON MD, Iram.Pranav.C.P, F.A.S.N. :1960 A ge:64 Y S ex:Female Date:12/28/2024 Address:[address] [place], [place] [id number] Subjective: * Chief Complaints: * * Medical [...] Treatment: * Billing Information: * Visit Code: 42085 Office Visit, Est Pt., Level 4. * Procedure Codes: * Electronic signature of Tray Voss MD on 05/31/2025 at 08:40 AM LOCOMOTIVE ENGINEER DIESEL Sign off status: Pending * Provider: Thea HARRISON MD, Iram.Pranav.C.P, F.A.S.N. Date: 0 12/28/2024 Generated for Printing/Faxing/eTransmitting on: 07/31/2024 08:40 AM LOCOMOTIVE ENGINEER DIESEL
--- OUTSIDE RECORDS SUMMARY | 2025-03-08 08:45 | XMS_ITS ---
Author Organization [facility] Address [address] [place] [address] Care Team Providers Care Window Shade Installer Name Role Phone Daniel Voss Unavailable [phone] Social History Sex Assigned At : Social History Observation Description Sex Assigned At Female Problems Problem Type SNOMED Code ICD Code Onset Dates Problem Status W/U Status Risk Notes Problem Chronic kidney disease stage 3A (disorder) (345085492) Chronic kidney disease, stage 3a (N18.31) Active confirmed Encounters Encounter Location Date Provider Diagnosis [place] [facility] [address] [facility] 15 [place] [address] 03/08/2025 Daniel Voss Chronic kidney disea se, stage 3a N18.31 ; Type 2 diabetes mellitus without complications E11.9 ; Essential hypertension I10 ; Cyst of kidney, acquired N28.1 ; Renal osteodystrophy N25.0 ; Secondary hyperparathyroidism of renal origin N25.81 ; Tobacco use Z72.0 and Proteinuria, unspecified R80.9 Assessments Encounter Date Diagnosis (ICD Code) Assessment Notes Treatment Notes Treatment Clinical Notes Section Notes 03/08/2025 Chronic kidney disea se, stage 3a (ICD-10 - N18.31) 03/08/2025 Type 2 diabetes mellitus without complications (ICD-10 - E11.9) 03/08/2025 Essential hypertensi on (ICD-10 - I10) 03/08/2025 Cyst of kidney, acquired (ICD-10 - N28.1) 03/08/2025 Renal osteodystrophy (ICD-10 - N25.0) 03/08/2025 Secondary hyperparathyroidism of renal origin (ICD-10 - N25.81) 03/08/2025 Tobacco use (ICD-10 - Z72.0) 03/08/2025 Proteinuria, unspecified (ICD-10 - R80.9) Plan Of Treatment Next Appt Details Provider Name:Daniel Voss , 06/07/2025 02:30:00 PM, [address] [facility], [address], [place], [address], Progress Notes * ANTONIO LALAOB:1960 ( 64 yo F)Acc No.[id number]:03/08/2025 Progress Notes Patient: BRADLY BARR Provider: Thea HARRISON MD, F.Pranav.C.P, F.A.S.N. :1960 A ge:64 Y S ex:Female Date:03/08/2025 Address:[address] [place] [address] [id number] Subjective: * Chief Complaints: Objective: Assessment: * Assessment: 1. C hronic kidney disease, stage 3a - N18.31 (Primary) 2 . T ype 2 diabetes mellitus without complications - E11.9 3 . E ssential hypertension - I10 ? 4 . C yst of kidney, acquired - N28.1 5 . R enal osteodystrophy - N25.0 6 . S econdary hyperparathyroidism of renal origin - N25.81 ?7. T obacco use - Z72.0 8 . P roteinuria, unspecified - R80.9 Plan: * Billing Information: * Visit Code: 12640 Office Visit, Est Pt., Level 4. * Procedure Codes: * Electronic signature of Tray Voss MD on 05/31/2025 at 08:40 AM ADMINISTRATIVE OFFICE SPECIALIST Sign off status: Pending * Provider: Thea HARRISON MD, F.Pranav.C.P, F.A.S.N. Date: 0 03/08/2025 Generated for Printing/Faxing/eTransmitting on: 1 07/31/2024 08:40 AM ADMINISTRATIVE OFFICE SPECIALIST
--- NOTE | 2025-05-31 08:36 | EST_ITS ---
Patient Info Name: Rebecca Farooq Age: 64 years : 1960 Gender: Female Ht: 67 in Wt: 189 lbs BSA: 2.04 m2 HR: 77 bpm BP: 155 / 91 mmHg Exam Date: 05/31/2025 8:36 AM Patient Status: O Admit Date: 05/31/2025 Exam Type: CA stress test treadmill A treadmill exercise stress test was performed. Staff Attending Provider: Sharif Nicholas DO Exercise Technologist: Felecia Rincon Exercise Physician: Sharif Nicholas DO Summary 1. 1. Negative Nakul exercise stress test for ischemic ST changes by ECG criteria. 2. 2. Reduced functional capacity, achieving 7 METs of workload. 3. 3. Baseline hypertension. 4. 4. Appropriate HR response to exercise. 5. 5. Appropriate HR recovery at 1 minute post exercise. 6. 6. No imaging with stress testing. 7. 7. Patient informed of the above results. Protocol: Nakul Stress ECG Details Stage: REST Duration (min): 0 min : 47 sec Speed (mph): 0.0 Grade (%): 0 HR (bpm): 75 SBP (mmHg): 155 DBP (mmHg): 91 METS: --- Stage: REST Duration (min): 7 min : 8 sec Speed (mph): 0.0 Grade (%): 0 HR (bpm): 73 SBP (mmHg): 155 DBP (mmHg): 91 METS: --- Stage: STAGE 1 Duration (min): 1 min : 0 sec Speed (mph): 1.7 Grade (%): 10 HR (bpm): 109 SBP (mmHg): 155 DBP (mmHg): 91 METS: --- Stage: STAGE 1 Duration (min): 2 min : 0 sec Speed (mph): 1.7 Grade (%): 10 HR (bpm): 116 SBP (mmHg): 155 DBP (mmHg): 91 METS: --- Stage: STAGE 1 Duration (min): 3 min : 0 sec Speed (mph): 1.7 Grade (%): 10 HR (bpm): 123 SBP (mmHg): 181 DBP (mmHg): 88 METS: --- Stage: STAGE 2 Duration (min): 1 min : 0 sec Speed (mph): 2.5 Grade (%): 12 HR (bpm): 134 SBP (mmHg): 181 DBP (mmHg): 88 METS: --- Stage: STAGE 2 Duration (min): 1 min : 30 sec Speed (mph): 2.5 Grade (%): 12 HR (bpm): 144 SBP (mmHg): 181 DBP (mmHg): 88 METS: --- Stage: RECOVERY Duration (min): 0 min : 29 sec Speed (mph): 0.0 Grade (%): 0 HR (bpm): 143 SBP (mmHg): 159 DBP (mmHg): 90 METS: --- Stage: RECOVERY Duration (min): 1 min : 29 sec Speed (mph): 0.0 Grade (%): 0 HR (bpm): 95 SBP (mmHg): 159 DBP (mmHg): 90 METS: --- Stage: RECOVERY Duration (min): 2 min : 29 sec Speed (mph): 0.0 Grade (%): 0 HR (bpm): 93 SBP (mmHg): 159 DBP (mmHg): 90 METS: --- Stage: RECOVERY Duration (min): 3 min : 29 sec Speed (mph): 0.0 Grade (%): 0 HR (bpm): 96 SBP (mmHg): 162 DBP (mmHg): 81 METS: --- Stage: RECOVERY Duration (min): 4 min : 29 sec Speed (mph): 0.0 Grade (%): 0 HR (bpm): 79 SBP (mmHg): 162 DBP (mmHg): 81 METS: --- Stage: RECOVERY Duration (min): 5 min : 29 sec Speed (mph): 0.0 Grade (%): 0 HR (bpm): 79 SBP (mmHg): 164 DBP (mmHg): 84 METS: --- Stage: RECOVERY Duration (min): 6 min : 29 sec Speed (mph): 0.0 Grade (%): 0 HR (bpm): 88 SBP (mmHg): 164 DBP (mmHg): 84 METS: --- Stage: RECOVERY Duration (min): 7 min : 10 sec Speed (mph): 0.0 Grade (%): 0 HR (bpm): 73 SBP (mmHg): 155 DBP (mmHg): 91 METS: --- Rest HR: 73 bpm Peak HR: 145 bpm Rest Sys BP: 155 mmHg Peak Sys BP: 181 mmHg Max Pred HR: 156 bpm % Max Pred HR: 93 % Target HR: 133 bpm Max RPP: 26,245 bpm*mmHg Guevara Score: -2 Termination Reason: Reached target heart rate or workload Cardiac Symptoms: Shortness of breath Max ST Seg Deviation: -1.20 mm Total Time: 4 min : 30 sec Rest Mckinley BP: 91 mmHg Peak Mckinley BP: 88 mmHg Angina Score: None Total METS: 7.1 Resting ECG Sinus rhythm. Stress ECG No ST changes. Arrhythmias None. Report Signatures
--- OUTSIDE RECORDS SUMMARY | 2025-05-31 08:41 | XMS_ITS | Patient Health Record ---
Author Organization [facility] Address [address] [place] [address] Care Team Providers Care Master Technician Name Role Phone Daniel Voss Unavailable [phone] Reason For Referral No Information Medications Medication [...] Problem Type II diabetes mellitus without complication (484743107) Type 2 diabetes mellitus without complications (E11.9) Active confirmed Problem Renal osteodystrophy (51060253) Renal osteodystrophy (N25.0) Active confirmed Problem Secondary hyperparathyroidism of renal origin (82514192) Secondary hyperparathyroidism of renal origin (N25.81) Active confirmed Problem Acquired renal cysti c disease (307099661) Cyst of kidney, acquired (N28.1) Active confirmed Problem Proteinuria (85386358) Proteinuria, unspecified (R80.9) Active confirmed Problem Tobacco use (243338000) Tobacco use (Z72.0) Active confirmed Problem Essential hypertension (12389082) Essential hypertension (I10) Active confirmed Problem Chronic kidney disease stage 3A (disorder) (011904352) Chronic kidney disease, stage 3a (N18.31) Active confirmed Encounters Encounter Location Date Provider Diagnosis [place] [facility] [address] [facility] [address] [place] [address] 06/10/2024 Daniel Voss Chronic kidney disea se, stage 1 N18.1 ; Type 2 diabetes mellitus without complications E11.9 ; Essential hypertension I10 and Cyst of kidney, acquired N28.1 [facility] [address] [place] [address] 07/01/2024 Daniel Voss Chronic kidney disea se, stage 2 (mild) N18.2 ; Type 2 diabetes mellitus without complications E11.9 ; Essential hypertension I10 and Cyst of kidney, acquired N28.1 [place] [facility] [address] [address] 08/12/2024 Daniel Voss Chronic kidney disea se, stage 2 (mild) N18.2 ; Essential hypertension I10 ; Cyst of kidney, acquired N28.1 ; Renal osteodystrophy N25.0 ; Secondary hyperparathyroidism of renal origin N25.81 and Proteinuria, unspecified R80.9 [facility] [address] [place] [address] 09/23/2024 Daniel Voss Chronic kidney disea se, stage 2 (mild) N18.2 ; Type 2 diabetes mellitus without complications E11.9 ; Essential hypertension I10 ; Cyst of kidney, acquired N28.1 ; Renal osteodystrophy N25.0 and Secondary hyperparathyroidism of renal origin N25.81 [facility] [address] [place] [address] 11/02/2024 Daniel Voss Chronic kidney disea se, stage 2 (mild) N18.2 ; Type 2 diabetes mellitus without complications E11.9 ; Essential hypertension I10 ; Cyst of kidney, acquired N28.1 ; Renal osteodystrophy N25.0 ; Secondary hyperparathyroidism of renal origin N25.81 ; Tobacco use Z72.0 and Proteinuria, unspecified R80.9 [place] [facility] [address] [address] 12/28/2024 Daniel Voss Chronic kidney disea se, stage 2 (mild) N18.2 ; Type 2 diabetes mellitus without complications E11.9 ; Essential hypertension I10 ; Cyst of kidney, acquired N28.1 ; Renal osteodystrophy N25.0 ; Secondary hyperparathyroidism of renal origin N25.81 ; Tobacco use Z72.0 and Proteinuria, unspecified R80.9 [place] [facility] [address] [address] 03/08/2025 Daniel Voss Chronic kidney disea se, stage 3a N18.31 ; Type 2 diabetes mellitus without complications E11.9 ; Essential hypertension I10 ; Cyst of kidney, acquired N28.1 ; Renal osteodystrophy N25.0 ; Secondary hyperparathyroidism of renal origin N25.81 ; Tobacco use Z72.0 and Proteinuria, unspecified R80.9 [place] [facility] [address] [address] 09/26/2024 Daniel Voss [place] [facility] [address] [address] 11/02/2024 Daniel Voss [place] [facility] [address] [address] 12/28/2024 Daniel Voss Assessments Encounter Date Diagnosis [...] 02:30:00 PM, [address]43 [facility], [facility], [place], [address],
--- OUTSIDE RECORDS SUMMARY | 2025-05-31 08:41 | XMS_ITS | Clinical Summary ---
Author Organization [facility] Address [address] [place] [address] Phone Care Team Providers Care Contact Center Engineer Name Role Phone Owen Kee Primary Care Provider +1 [phone] Encounters Date Type Department Care Team Description 03/18/2025 9:53 AM CDT - 03/18/2025 11:59 PM CDT [facility] [place] [phone] Seun La PAC Discharge Disposition: Discharged to home or Selfcare 03/18/2025 Travel 03/18/[address] [facility] Ad[facility] 1 [place] [address] Seun La PAC Impingement syndrome of left [...] Screening 2005 Immunochemical Fecal Occult Blood 2005 Welcome to Medicare (IP) G0402 10/25/2024 Influenza Immunization (#1) 2025 02/0 11/2024, 04/27/2024, 08/04/2023, Additional history exists SARS-COV-2 Immunization ( season) 2025 04/27/2024, 04/25/2023, 08/02/2022, Additional history exists Zoster Immunization Completed 01/14/2022, TdaP Immunization Completed 03/17/2022 Respiratory Syncytial Virus (RSV) Immunization (Adult) Completed 04/25/2023 Pneumococcal Immunization (50+ years) Completed 04/27/2024, 04/25/2023 Human Papillomavirus (HPV) Immunization Aged Out No [...] 03/20/2025 11:26 AM - Electronically signed by Doendre Templeton M.D. MJ: JAYMIE Report ID: [id number] Reading Location: [id number] Procedure Note Deondre Templeton MD - 03/20/2025 [...] Deondre Templeton M.D. MJ: JAYMIE Report ID: [id number] Reading Location: [id number] IMPRESSION: 1. There is fairly moderate to [...] effusion. 8. Trace fluid subacromial subdeltoid bursa. Seun La PAC IMG MR ORDERABLES Final Result from Last 3 Months Insurance * Guarantor: Rebecca Farooq Account Type Relation to Patient Date of Phone Billing Address Personal/Family Self 1960 [address] [place] [address] MEDICARE C [employer] [place]ID [place] Care Teams Contact Center Engineer Relationship Specialty Start Date End Date Owen Kee PAC [address] [place] [address] PCP - General Physician Orchard Sprayer 03/18/25
== END 2025-05-31 08:29 | disposition home or self-care (01) ==
LOC: ANHCARD 08:29
PROVIDERS: PCP Physician Assistant Medical; Visit Provider Internal Medicine Cardiovascular Disease
DX: Z01.810 Encounter for preprocedural cardiovascular examination (principal)
CPT/HCPCS: 93017

== ENCOUNTER 2025-06-27 11:38 | Outpatient (CLI) | payer MEDICARE, MEDICAID, SELFPAY ==
--- NOTE | ~2025-06-27 | US_ITS ---
US retroperitoneal comp 06/27/2025 13:12 Procedure: Realtime transabdominal ultrasound of the kidneys and bladder. Indication: Chronic kidney disease Comparison: No prior studies for comparison. Findings: Renal echotexture is normal bilaterally without hydronephrosis, contour deforming mass or renal calculus. There are bilateral renal cysts measuring up to 5.9 cm on the right and 4.9 cm on the left. The right kidney measures 14 cm and left kidney measures 15.1 cm. Bladder within normal limits. Impression: 1: Bilateral renal cysts. Reviewed, dictated and finalized at location I. S INSPECTOR Impression: 1: Bilateral renal cysts.
[2025-06-27 12:12] LABS: Hematocrit 42.9 % (37.0-47.0); Hemoglobin 13.3 g/dL (12.0-15.0); Immature Granulocyte Percent A 0.2 % (0-0.5); Lymphocytes Absolute Auto 3.08 K/mm3 (0.9-3.2); Mean Corpuscular HGB Conc 31.0 g/dl (32-36); Mean Corpuscular Hemoglobin 27.3 pg (26-34); Mean Corpuscular Volume 87.9 fl (80-100); Nucleated Red Blood Cells Absolute Auto 0.000 K/mm3 (0.0-0.012); Nucleated Red Blood Cells Perc 0.0 % (0.0-0.2); Platelet Count Result 262 k/mm3 (150-375); Red Blood Count 4.88 M/mm3 (4.2-5.4); White Blood Count 6.4 K/mm3 (4.5-10.0)
[2025-06-27 12:24] LABS: Alanine Aminotransferase 21 U/L (6-35); Albumin Level 4.3 g/dL (3.5-5.1); Alkaline Phosphatase 59 U/L (38-126); Anion Gap 1 mmol/L (4-12); Aspartate Amino Transferase 27 U/L (14-36); Bilirubin,Total 0.4 mg/dL (0.2-1.3); Blood Urea Nitrogen 11 mg/dL (7-17); Calcium 10.5 mg/dL (8.4-10.2); Carbon Dioxide 34 mmol/L (22-30); Chloride 106 mmol/L (98-107); Estimated Glomerular Filt Rate > 60; Glucose 67 mg/dL (65-110); Magnesium 2.2 mg/dL (1.6-2.3); Potassium 3.9 mmol/L (3.4-5.0); Sodium 141 mmol/L (137-145); Total Protein 7.2 g/dL (6.3-8.2); Uric Acid 3.6 mg/dL (2.5-7.5)
[2025-06-27 12:31] LABS: MALB Creatinine Ratio 28.0 mg/g (0-30)
[2025-06-27 12:35] LABS: Add Urine Microscopic? YES; Appearance Urine Cloudy (Clear); Glucose Urine UA Negative (Negative); Leukocyte Esterase Ur Trace LEU/UL (Negative); Need Manual Microscopic Reviewed; Nitrate Urine Negative (Negative); Parathyroid Intact 39.5 pg/mL (14.5-75.2); Specific Grav Ur 1.019 (1.001-1.035)
[2025-06-27 12:38] LABS: Hemoglobin A1C 5.6 % (<5.7)
--- OUTSIDE RECORDS SUMMARY | 2025-06-27 12:44 | XMS_ITS | Clinical Summary ---
Author Organization [facility] Address [address] [place] [address] Phone Care Team Providers Care Loss Prevention Supervisor Name Role Phone Owen Kee Primary Care Provider +1 [phone] Social History Tobacco Use Types Packs/Day Years [...] Fecal Occult Blood 2005 Welcome to Medicare (IPPE) G0402 10/25/2024 Influenza Immunization (#1) 2025 02/0 [...] on patient's age to complete this topic Insurance [address] [place] [address] MEDICARE C [employer] [place] Care Teams Loss Prevention Supervisor Relationship Specialty Start Date End Date Owen Kee PAC [address] [place] [address] PCP - General Physician Acid Cleaner 03/18/25
[2025-06-27 16:42] LABS: Total Protein Urine Random 9 mg/dL; Ur Ttl Prot Creatinine Ratio 0.05 mg/mg (0-0.20)
[2025-06-28 07:09] LABS: eGFR 74 (>59)
== END 2025-06-27 11:39 | disposition home or self-care (01) ==
PROVIDERS: PCP Physician Assistant Medical; Visit Provider Specialist
DX: E11.22 Type 2 diabetes mellitus with diabetic chronic kidney disease (principal); I12.9 Hypertensive chronic kidney disease with stage 1 through stage 4 chronic kidney disease, or unspecified chronic kidney disease; N18.2 Chronic kidney disease, stage 2 (mild); D64.9 Anemia, unspecified; R60.9 Edema, unspecified; E11.65 Type 2 diabetes mellitus with hyperglycemia; E55.9 Vitamin D deficiency, unspecified; E21.3 Hyperparathyroidism, unspecified; R82.90 Unspecified abnormal findings in urine; N39.0 Urinary tract infection, site not specified; R35.0 Frequency of micturition
CPT/HCPCS: 36415; 76770; 80053; 81001; 82043; 82306; 82570; 82610; 83036; 83735; 83970; 84156; 84550; 85025; 85652